=== PATIENT | female | born 1950 | race Caucasian/White ===

== ENCOUNTER 2016-12-02 15:53 | Emergency (ER) | payer MEDICARE, OTHER ==
[2016-12-02] MEDS ORDERED: SODIUM CHLORIDE 0.9% 500 ML IV STA (17:16)
--- NOTE | 2016-12-02 17:23 | ED ---
General Adult HPI - General Chief complaint: Arrhythmia/Palpitations Stated complaint: Paptations Time Seen by Provider: 12/02/16 16:53 Source: patient, RN notes reviewed Mode of arrival: wheelchair Limitations: no limitations - History of Present Illness Initial comments: 66 yo female presents to the ER with cc of shakiness that is since resolved. Patient states she was here for an infusion for her arthritis. Patient states she was been hungry so she went to the cafeteria. Patient states after she ate she felt some shakiness in her hands so she came to the emergency department. Patient states that they did an EKG and she sat all in the lobby and the shakiness has since resolved. Patient states while she was shaky just feels if her heart was pounding and beating faster patient states that this is since resolved. Patient states there is no pain or shortness of breath during this. Patient states she hasn't had any other symptoms. Patient states that she is back to normal and feels fine. Patient states that she was concerned due to the shakiness so she thought that she should be evaluated. Patient denies any recent fever, chills, shortness of breath, chest pain, back pain, abdominal pain , nausea vomiting, numbness or tingling, dysuria or hematuria, constipation or diarrhea, headaches or visual changes, or any other current symptoms. - Related Data Home Medications Medication Instructions Recorded Confirmed Bisoprolol Fumarate 10 mg PO DAILY 05/12/14 12/02/16 Chlorzoxazone [Parafon Forte Dsc] 1,000 mg PO TID PRN 05/12/14 12/02/16 Fenofibrate,Micronized 200 mg PO HS 05/12/14 12/02/16 [Fenofibrate] Gabapentin [Neurontin] 600 mg PO BID 05/12/14 12/02/16 Isosorbide Mononitrate ER [Imdur] 30 mg PO DAILY 05/12/14 12/02/16 Lansoprazole [Prevacid] 30 mg PO BID 05/12/14 12/02/16 Lovastatin [Mevacor] 20 mg PO HS 05/12/14 12/02/16 Montelukast [Singulair] 10 mg PO HS 05/12/14 12/02/16 Oxybutynin Chloride [Ditropan XL] 10 mg PO BID 05/12/14 12/02/16 Temazepam [Restoril] 30 mg PO HS PRN 05/12/14 12/02/16 Acetaminophen Tab [Tylenol] 500 mg PO Q6H PRN 02/23/16 12/02/16 Albuterol Inhaler [Ventolin Hfa 2 puff INHALATION RT-Q6H PRN 02/23/16 12/02/16 Inhaler] Albuterol Nebulized [Ventolin 2.5 mg INHALATION RT-Q6H PRN 02/23/16 12/02/16 Nebulized] Alendronate Sodium 70 mg PO EDMONDSON 02/23/16 12/02/16 Aspirin EC [Ecotrin] 325 mg PO DAILY 02/23/16 12/02/16 Clotrimazole/Betamethasone Dip 1 applic TOPICAL BID PRN 02/23/16 12/02/16 [Lotrisone Cream] FLUoxetine HCL [PROzac] 20 mg PO BID 02/23/16 12/02/16 Ferrous Sulfate [Iron (65 MG 325 mg PO BID 02/23/16 12/02/16 Elemental)] Folic Acid 1 mg PO DAILY 02/23/16 12/02/16 HYDROcodone/APAP 10-325MG [[place] 1 tab PO Q4H PRN 02/23/16 12/02/16 10-325] Ibuprofen [Motrin] 800 mg PO Q6H PRN 02/23/16 12/02/16 [place]-3 Fatty Acids [[place]-3] 1,000 mg PO DAILY 02/23/16 12/02/16 amLODIPine BESYLATE [Amlodipine 10 mg PO DAILY 02/23/16 12/02/16 Besylate] glipiZIDE [Glucotrol XL] 5 mg PO DAILY 02/23/16 12/02/16 traZODone HCL [Desyrel] 100 - 200 mg PO HS 02/23/16 12/02/16 DULoxetine HCL [Cymbalta] 60 mg PO DAILY 08/09/16 12/02/16 Fexofenadine HCl [Flores Allergy] 180 mg PO BID 08/09/16 12/02/16 Methotrexate Sodium [Methotrexate] 17.5 mg PO EDMONDSON 12/02/16 12/02/16 Allergies Allergy/AdvReac Type Severity Reaction Status Date / Time Penicillins Allergy Rash/Hives Verified 12/02/16 17:16 sulfamethoxazole Allergy Rash/Hives Verified 12/02/16 17:16 [From Bactrim] trimethoprim [From Bactrim] Allergy Rash/Hives Verified 12/02/16 17:16 Review of Systems ROS Statement: Those systems with pertinent positive or pertinent negative responses have been documented in the HPI. ROS Other: All systems not noted in ROS Statement are negative. Past Medical History Past Medical History: Asthma, Chest Pain / Angina, Fibromyalgia, Hyperlipidemia , Hypertension, Osteoarthritis (OA), Rheumatoid Arthritis (RA) Additional Past Medical History / Comment(s): LUPUS, History of Any Multi-Drug Resistant Organisms: None Reported Past Surgical History: Hysterectomy, Joint Replacement, Orthopedic Surgery Additional Past Surgical History / Comment(s): RIGHT FOOT, TOTAL RIGHT ANKLE, TOTAL RIGHT HIP AND TOTAL LEFT HIP Past Anesthesia/Blood Transfusion Reactions: No Reported Reaction Past Psychological History: Depression Smoking Status: Never smoker Past Alcohol Use History: Occasional Past Drug Use History: None Reported - Past Family History Mother Family Medical History: Cancer Additional Family Medical History / Comment(s): LUNG CANCER General Exam - General Exam Comments Initial Comments: General: The patient is awake and alert, in no distress, and does not appear acutely ill. Eye: Pupils are equal, round and reactive to light, extra-ocular movements are intact; there is normal conjunctiva bilaterally. No signs of icterus. Ears, nose, mouth and throat: There are moist mucous membranes and no oral lesions. Neck: The neck is supple, there is no tenderness. Cardiovascular: There is a regular rate and rhythm. No murmur, rub or gallop is appreciated. Respiratory: Lungs are clear to auscultation, respirations are non-labored, breath sounds are equal. No wheezes, stridor, rales, or rhonchi. Gastrointestinal: Soft, non-distended, non-tender abdomen without masses or organomegaly noted. There is no rebound or guarding present. No CVA tenderness. Bowel sounds are unremarkable. Back: There is no tenderness to palpation in the midline. There is no obvious deformity. No rashes noted. Musculoskeletal: Normal ROM, no tenderness, There is no pedal edema. There is no calf tenderness or swelling. Sensation intact. Pulses equal bilaterally 2+. Neurological: CN II-XII intact, There are no obvious motor or sensory deficits. Coordination appears grossly intact. Speech is normal. Skin: Skin is warm and dry and no rashes or lesions are noted. Psychiatric: Cooperative, appropriate mood & affect, normal judgment. Limitations: no limitations Course Vital Signs 12/02/16 12/02/16 15:55 18:39 Temperature 98.9 F 98.8 F Pulse Rate 67 64 Respiratory 20 18 Rate Blood Pressure 154/107 169/94 O2 Sat by Pulse 98 96 Oximetry Medical Decision Making - Medical Decision Making 66-year-old female presents emergency Department chief complaint of shakiness. Lab work was ordered on the patient EKG was reviewed initially acute changes compared to previous. Patient proceeded to leave AMA. She was informed of the risk of possible from this. We did discuss this with the patient and she stated that she understood. Patient states she still like to go home she is on the posterior margin she is back to normal has no complaints. This patient did sign out AMA. Disposition Clinical Impression: Shakiness Disposition: Left Against Medical Advice Condition: Undetermined Referrals: Elida Baltazar MD [Primary Care Provider] - 1-2 days
--- NOTE | 2016-12-02 18:34 | XR ---
EXAMINATION TYPE: XR chest 2V DATE OF EXAM: 12/02/2016 6:27 PM COMPARISON: 07/11/2014 HISTORY: Weakness TECHNIQUE: Frontal and lateral views of the chest are obtained. FINDINGS: Heart and mediastinum are normal. Lungs are clear of infiltrate. Costophrenic angles are c lear. There is spurring in the thoracic spine. IMPRESSION: No active cardiopulmonary disease. No change.
[2016-12-02 18:40] VITALS: BP 169/94; PULSE 64; RESP 18; TEMP 98.8
== END 2016-12-02 18:51 | disposition left against medical advice (07) ==
LOC: EC 15:53
DX: R25.1 Tremor, unspecified (principal); J45.909 Unspecified asthma, uncomplicated; E78.5 Hyperlipidemia, unspecified; I10 Essential (primary) hypertension; M79.7 Fibromyalgia; M19.90 Unspecified osteoarthritis, unspecified site; M06.9 Rheumatoid arthritis, unspecified; F32.9 Major depressive disorder, single episode, unspecified; Z86.79 Personal history of other diseases of the circulatory system; Z79.82 Long term (current) use of aspirin; Z79.899 Other long term (current) drug therapy; Z79.84 Long term (current) use of oral hypoglycemic drugs; Z88.0 Allergy status to penicillin; Z88.2 Allergy status to sulfonamides; Z53.21 Procedure and treatment not carried out due to patient leaving prior to being seen by health care provider
CPT/HCPCS: 71020; 93005; 96365; 99285

== ENCOUNTER 2017-04-25 06:39 | Day surgery (SDC) | payer MEDICARE, OTHER ==
[~2017-04-25 06:39] MED LIST: ALPRAZolam 0.25 MG TAB PO PRN; ASPIRIN 325 MG TAB PO ONE; NITROGLYCERIN SL TABS 0.4 MG TAB SUBLINGUAL PRN; SODIUM CHLORIDE 0.9% 1,000 ML in EMPTY BAG 1 BAG IV ONE
[2017-04-25] MEDS ORDERED: ASPIRIN 81 MG CHEW ONE (07:03)
[2017-04-25] MEDS ORDERED: SODIUM CHLORIDE 0.9% 1,000 ML IV ONE (07:14)
[2017-04-25 07:23] LABS: Anisocytosis Slight; Basophils # (A) 0.1 k/uL (0-0.2); Basophils % (A) 1 %; CH 28.7; CHCM 30.9; Eosinophils # (A) 0.5 k/uL (0-0.7); Eosinophils % (A) 9 %; HCT 40.3 % (34.0-46.0); HDW 2.79; HGB 12.6 gm/dL (11.4-16.0); Hypochromasia Moderate; Luc # (Auto) 0.17; Luc % (Auto) 3; Lymphocytes % (A) 41 %; MCHC 31.2 g/dL (31.0-37.0); MCV 93.2 fL (80.0-100.0); Mean Platelet Volume 8.1; Monocytes # (A) 0.3 k/uL (0-1.0); Monocytes % (A) 7 %; Neutrophils # (A) 1.9 k/uL (1.3-7.7); Neutrophils % (A) 39 %; RBC 4.33 m/uL (3.80-5.40); RDW 18.2 % (11.5-15.5); WBC (Perox) 5.19
[2017-04-25 07:29] LABS: Glucose,Whole Blood 103 mg/dL (75-99)
[2017-04-25] MEDS: LIDOCAINE 2% INJ 20 MG/ML SQ ONE ×2 (07:40→07:57)
[2017-04-25] MEDS ORDERED: MIDAZOLAM 2 MG/2 ML VIAL IV ONE (07:41)
[2017-04-25 07:42] LABS: Anion Gap 7 mmol/L; Blood Urea Nitrogen 19 mg/dL (7-17); Carbon Dioxide 25 mmol/L (22-30); Chloride 111 mmol/L (98-107); Glucose 99 mg/dL (74-99); Non-African American GFR(MDRD) >60 (>60 ml/min/1.73 sqM); Sodium 143 mmol/L (137-145)
[2017-04-25] MEDS ORDERED: VERAPAMIL SYRINGE (5 MG/10 ML) INTRAARTER ONE (07:42)
[2017-04-25 07:43] LABS: Potassium 4.7 mmol/L (3.5-5.1)
[2017-04-25] MEDS ORDERED: HEPARIN SODIUM 1,000 UNIT/ML VIAL IV ONE (07:43)
[2017-04-25] MEDS ORDERED: BIVALIRUDIN BOLUS 250 MG/50 ML IV ONE (08:16)
[2017-04-25] MEDS ORDERED: BIVALIRUDIN 250 MG in SODIUM CHLORIDE 0.9% 50 ML IV ONE (08:17)
[2017-04-25] MEDS ORDERED: CLOPIDOGREL 75 MG TAB PO ONE (08:25)
[2017-04-25] MEDS: NITROGLYCERIN 1000MCG/10ML SYRINGE INTRACORON ONE ×2 (08:40→08:45)
[2017-04-25] MEDS ORDERED: IOHEXOL 350 MG/ML 125ML BOTTLE INJ ONE (08:52)
[2017-04-25] MEDS ORDERED: CLOTRIMAZOLE/BETAMETH 1-0.05% CREAM 45 GM TUBE TOPICAL PRN (08:53)
[2017-04-25] MEDS ORDERED: TEMAZEPAM 30 MG CAP PO PRN (08:53)
[2017-04-25] MEDS ORDERED: ACETAMINOPHEN TAB 500 MG TAB PO PRN (08:53)
[2017-04-25] MEDS ORDERED: ALBUTEROL NEBULIZED 2.5 MG/3 ML INHALATION PRN ×2 (08:53)
[2017-04-25] MEDS ORDERED: NITROGLYCERIN SL TABS 0.4 MG TAB SUBLINGUAL PRN (08:55)
[2017-04-25] MEDS ORDERED: MAG HYDROX/AL HYDROX/SIMETH 30 ML CUP PO PRN (08:55)
[2017-04-25] MEDS ORDERED: RX INFO: IV CONTRAST WAS GIVEN 1 EACH MISC MISCELLANE PRN (08:55)
[2017-04-25] MEDS ORDERED: ATROPINE SULFATE 0.1 MG/ML 10ML SYRINGE IV PRN (08:55)
[2017-04-25] MEDS ORDERED: ZOLPIDEM 5 MG TAB PO PRN (08:55)
[2017-04-25] MEDS ORDERED: ADALIMUMAB 40 MG SQ SCH (09:00)
[2017-04-25] MEDS ORDERED: NON-FORMULARY DRUG (Omega-3 Fatty Acids [Omega-3] 1,000 MG) PO SCH (09:00)
[2017-04-25] MEDS ORDERED: SODIUM CHLORIDE 0.9% 1,000 ML IV SCH (09:00)
[2017-04-25] MEDS: ASPIRIN 81 MG CHEW PO SCH (11:47)
[2017-04-25] MEDS ORDERED: HYDROcodone/APAP 10-325MG 1 EACH TAB PO SCH (12:00)
[2017-04-25 12:09] VITALS: BMI 30.9
[2017-04-25 12:32] LABS: Glucose,Whole Blood 85 mg/dL (75-99)
[2017-04-25] MEDS: amLODIPine 10 MG TAB PO SCH (12:39)
[2017-04-25] MEDS: BISOPROLOL 5 MG TAB PO SCH (12:39)
[2017-04-25] MEDS: FLUoxetine HCL 20 MG CAP PO SCH ×2 (12:40→20:08)
[2017-04-25] MEDS: FERROUS SULFATE 325 MG TAB PO SCH ×2 (12:40→20:08)
[2017-04-25] MEDS: DULoxetine HCL 60 MG CAPSULE.DR PO SCH (12:40)
[2017-04-25] MEDS: FOLIC ACID 1 MG TAB PO SCH (12:40)
[2017-04-25] MEDS: GABAPENTIN 300 MG CAP PO SCH ×3 (12:41→20:09)
[2017-04-25] MEDS: ISOSORBIDE MONONITRATE ER 30 MG TAB.ER.24H PO SCH (12:43)
[2017-04-25] MEDS: LISINOPRIL 5 MG TAB PO SCH (12:43)
[2017-04-25] MEDS: OXYBUTYNIN 10 MG TAB.ER.24 PO SCH ×3 (12:43→20:08)
[2017-04-25] MEDS: LORATADINE 10 MG TAB PO SCH (12:43)
[2017-04-25] MEDS: PANTOPRAZOLE 40 MG TABLET PO SCH ×2 (13:03→17:04)
[2017-04-25] MEDS ORDERED: CYCLOBENZAPRINE 10 MG TAB PO PRN (16:00)
[2017-04-25 16:54] LABS: Glucose,Whole Blood 91 mg/dL (75-99)
[2017-04-25] MEDS: HYDROcodone/APAP 10-325MG 1 EACH TAB PO SCH ×3 (17:03→23:27)
[2017-04-25] MEDS ORDERED: MONTELUKAST 10 MG TAB PO SCH (21:00)
[2017-04-25] MEDS ORDERED: FENOFIBRATE 160 MG TAB PO SCH (21:00)
[2017-04-25] MEDS ORDERED: ATORVASTATIN 10 MG TAB PO SCH (21:00)
[2017-04-25 21:07] LABS: Glucose,Whole Blood 134 mg/dL (75-99)
--- NOTE | 2017-04-25 22:56 | CC ---
DATE OF SERVICE: 04/25/2017 PERFORMING PHYSICIAN: Bharath Castillo M.D., recycler. PROCEDURES PERFORMED: 1. Selective left coronary angiogram. 2. Successful stenting of the proximal left anterior descending artery using 2.75 x 26 mm Xience KEANU with good angiographic results. 3. Selective right common femoral artery angiogram. COMPLICATIONS: None. LEVEL OF SEDATION: Moderate, with sedation length of 88 minutes. PROCEDURE DESCRIPTION: After obtaining informed consent, the patient was brought to the cardiac labor delivery specialist. Initially I accessed the right radial artery using micropuncture technique. The micropuncture wire passed easily. Then I placed a 6 Cymro sheath in the right radial artery. Subsequently I gave the patient 2 mg of Verapamil IA and 3000 units of heparin IV. After that I advanced an 0.035 Glidewire to the aortic root with difficulty because of the extreme tortuosity in the right subclavian. At that point I decided to abort the radial approach and go from the groin. At that point I accessed the right common femoral artery using micropuncture technique. The micropuncture wire passed easily. Then I placed a 6 Cymro sheath in the right common femoral artery. Subsequently I did selective left coronary angiogram using JL4 catheter. I tried to engage the right coronary artery, but I was unable to, and then I realized that the right coronary artery has flush occlusion from the ostium and it fills by collaterals from the left coronary system. After reviewing the angiogram, I decided to intervene on the LAD. Please see separate paragraph for that. SELECTIVE CORONARY ANGIOGRAM: 1. The right coronary artery is probably occluded by the ostium. It fills by collaterals from the left coronary system. 2. The left main is a large-caliber vessel with mild disease only. It bifurcates into the left circumflex and left anterior descending artery. 3. Left circumflex is a large-caliber vessel and it is a non-dominant vessel. The proximal left circumflex appeared to be angiographically normal and gives rises to the first OM branch, which is a large-caliber vessel with 50% disease in the proximal portion. The mid left circumflex is angiographically normal and the left circumflex distally is normal. The left circumflex and the LAD give collaterals to the distal right coronary artery. 4. Left anterior descending artery. The proximal LAD is stented, with severe in-stent restenosis that appeared to be in the range of 80% to 90%. The LAD proximally gives rise to the first diagonal branch, which is a small-caliber vessel with severe disease in the ostium. The mid LAD has mild disease only and gives rise to 2 small to medium diagonal branches; they appear to be angiographically normal, and the LAD distally is angiographically normal. PCI OF THE LAD: Anticoagulation was initiated using Angiomax. Subsequently I took a JL4 guiding catheter, and the left main was engaged. A Whisper wire was used to wire the left anterior descending artery. I had some difficulty getting the wire to the LAD, and I had to put 2 ( ) on the Whisper wire to get to the LAD. After that I did PTCA ballooning using 2.5 x 20 mm balloon. After that I deployed 2.5 x 26, 2.75 x 20, ( ) x 28 mm Xience KEANU, where the stent was positioned under fluoroscopy guidance and deployed under 12 atmospheres for 30 seconds. The following angiogram showed good angiographic results without perforation and without dissection, with excellent flow in the LAD. CONCLUSION: 1. Chronic total occlusion of the right coronary artery; fills by collaterals from the left coronary system. The occlusion is likely to be flush occlusion. 2. Intermediate disease involving the first obtuse marginal branch of the left circumflex. 3. Severe in-stent restenosis involving the proximal LAD stent. 4. Successful stenting of the proximal LAD using 2.75 x 28 mm Xience KENAU, with good angiographic results.
[2017-04-26 01:18] VITALS: RESP 16
[2017-04-26] MEDS: HYDROcodone/APAP 10-325MG 1 EACH TAB PO SCH ×3 (05:08→12:28)
[2017-04-26 06:16] LABS: Glucose,Whole Blood 107 mg/dL (75-99)
[2017-04-26] MEDS: PANTOPRAZOLE 40 MG TABLET PO SCH (06:39)
[2017-04-26 06:43] LABS: Anisocytosis Slight; Basophils % (A) 1 %; CH 28.7; CHCM 30.8; Eosinophils # (A) 0.4 k/uL (0-0.7); Eosinophils % (A) 7 %; HCT 38.4 % (34.0-46.0); HDW 2.75; Hypochromasia Moderate; Luc # (Auto) 0.18; Luc % (Auto) 4; Lymphocytes % (A) 40 %; MCH 29.2 pg (25.0-35.0); MCHC 31.4 g/dL (31.0-37.0); MCV 93.2 fL (80.0-100.0); Monocytes # (A) 0.3 k/uL (0-1.0); Monocytes % (A) 7 %; Neutrophils # (A) 2.1 k/uL (1.3-7.7); Neutrophils % (A) 42 %; RBC 4.12 m/uL (3.80-5.40); RDW 18.3 % (11.5-15.5); WBC 4.9 k/uL (3.8-10.6)
[2017-04-26 07:07] LABS: Anion Gap 10 mmol/L; Blood Urea Nitrogen 11 mg/dL (7-17); Calcium 9.2 mg/dL (8.4-10.2); Carbon Dioxide 27 mmol/L (22-30); Chloride 106 mmol/L (98-107); Glucose 96 mg/dL (74-99); Non-African American GFR(MDRD) >60 (>60 ml/min/1.73 sqM); Potassium 4.5 mmol/L (3.5-5.1); Sodium 143 mmol/L (137-145)
[2017-04-26] MEDS: ISOSORBIDE MONONITRATE ER 30 MG TAB.ER.24H PO SCH (08:08)
[2017-04-26] MEDS: amLODIPine 10 MG TAB PO SCH (08:08)
[2017-04-26] MEDS: FLUoxetine HCL 20 MG CAP PO SCH (08:08)
[2017-04-26] MEDS: LISINOPRIL 5 MG TAB PO SCH (08:08)
[2017-04-26] MEDS: OXYBUTYNIN 10 MG TAB.ER.24 PO SCH (08:08)
[2017-04-26] MEDS: ASPIRIN 81 MG CHEW PO SCH (08:08)
[2017-04-26] MEDS: DULoxetine HCL 60 MG CAPSULE.DR PO SCH (08:09)
[2017-04-26] MEDS: LORATADINE 10 MG TAB PO SCH (08:09)
[2017-04-26] MEDS: FERROUS SULFATE 325 MG TAB PO SCH (08:09)
[2017-04-26] MEDS: GABAPENTIN 300 MG CAP PO SCH (08:10)
[2017-04-26] MEDS: FOLIC ACID 1 MG TAB PO SCH (08:10)
[2017-04-26] MEDS: BISOPROLOL 5 MG TAB PO SCH (08:13)
[2017-04-26] MEDS ORDERED: CLOPIDOGREL 75 MG TAB PO SCH (09:00)
[2017-04-26 11:25] VITALS: BP 119/71; PULSE 55; TEMP 97.6
[2017-04-26 11:33] LABS: Glucose,Whole Blood 60 mg/dL (75-99)
[2017-04-26 11:48] LABS: Glucose,Whole Blood 58 mg/dL (75-99)
[2017-04-26 12:02] LABS: Glucose,Whole Blood 71 mg/dL (75-99)
[2017-04-26 13:04] LABS: Glucose,Whole Blood 94 mg/dL (75-99)
--- NOTE | 2017-04-27 12:26 | DS ---
DATE OF ADMISSION: 04/25/2017 DATE OF DISCHARGE: 04/26/2017 BRIEF HISTORY: This is a pleasant 67-year-old female patient who is known to have coronary artery disease and prior stenting of the LAD was experiencing intermittent episodes of chest discomfort concerning for angina. She was admitted to the hospital yesterday and underwent a heart catheterization and that showed severe in-stent restenosis involving the proximal LAD. She underwent successful stenting of the proximal LAD with good angiographic results and without any complication. The procedure was performed from the right groin, which is soft and nontender and without any bruises. Patient is going to be discharged home on dual antiplatelet therapy and I will follow up with the patient as an outpatient in the office.
[2017-04-30] MEDS ORDERED: NON-FORMULARY DRUG (Alendronate Sodium [Alendronate Sodium] 70 MG) PO SCH (08:53)
[2017-04-30] MEDS ORDERED: METHOTREXATE SODIUM 2.5 MG TAB PO SCH (09:00)
== END 2017-04-26 15:01 | disposition home or self-care (01) ==
LOC: CATHCVL 06:39 → 6SEL 08:50 → CATHCVL 04-26 15:01
PROVIDERS: ATTEND Internal Medicine Interventional Cardiology
DX: I25.110 Atherosclerotic heart disease of native coronary artery with unstable angina pectoris (principal); I25.82 Chronic total occlusion of coronary artery; I10 Essential (primary) hypertension; T82.855A Stenosis of coronary artery stent, initial encounter; E11.9 Type 2 diabetes mellitus without complications; Z82.49 Family history of ischemic heart disease and other diseases of the circulatory system; Z79.84 Long term (current) use of oral hypoglycemic drugs; Z79.82 Long term (current) use of aspirin; Z79.1 Long term (current) use of non-steroidal anti-inflammatories (NSAID); Z79.899 Other long term (current) drug therapy; Z88.2 Allergy status to sulfonamides
CPT/HCPCS: 99152; 99153 ×4; 94640; 93454; 80048 ×2; 85025 ×2; C9600; C1760; C1769 ×4; C1887; C1894 ×2; C1725; C1874; J2001; J2250; J1644; J0583; Q9967

== ENCOUNTER 2017-05-14 00:59 | Emergency (ER) | payer MEDICARE, OTHER ==
[2017-05-14 01:17] VITALS: PULSE 60; RESP 18
[2017-05-14] MEDS ORDERED: HYDROcodone/APAP 10-325MG 1 EACH TAB PO ONE (01:48)
--- NOTE | 2017-05-14 02:00 | ED ---
Fall HPI - General Chief Complaint: Fall Stated Complaint: Fall-Knee Injury Time Seen by Provider: 05/14/17 01:30 Source: patient, RN notes reviewed Mode of arrival: wheelchair Limitations: no limitations - History of Present Illness Initial Comments: 67-year-old female presents emergency Department chief complaint trip and fall. Patient states that she [place] horse [place] today states that she fell on the ground. She states that she primarily fell onto her knees. She did drop her back. Patient denies any bowel bladder incontinence or retention. Denies any head injury no LOC. Patient also went of right elbow pain. Patient states she's had prior injury to her right elbow and he has limited range of motion prior to her injury. Patient has no paresthesias of any of her extremities. Patient states primarily her right knee is worse which is very swollen and ecchymotic. - Related Data Home Medications Medication Instructions Recorded Confirmed Bisoprolol Fumarate 10 mg PO DAILY 05/12/14 05/14/17 Chlorzoxazone [Parafon Forte Dsc] 1,000 mg PO TID PRN 05/12/14 05/14/17 Fenofibrate,Micronized 200 mg PO HS 05/12/14 05/14/17 [Fenofibrate] Gabapentin [Neurontin] 600 mg PO TID 05/12/14 05/14/17 Isosorbide Mononitrate ER [Imdur] 30 mg PO DAILY 05/12/14 05/14/17 Lansoprazole [Prevacid] 30 mg PO BID 05/12/14 05/14/17 Lovastatin [Mevacor] 20 mg PO HS 05/12/14 05/14/17 Montelukast [Singulair] 10 mg PO HS 05/12/14 05/14/17 Oxybutynin Chloride [Ditropan XL] 10 mg PO TID 05/12/14 05/14/17 Temazepam [Restoril] 30 mg PO HS PRN 05/12/14 05/14/17 Acetaminophen Tab [Tylenol] 500 mg PO Q6H PRN 02/23/16 05/14/17 Albuterol Inhaler [Ventolin Hfa 2 puff INHALATION RT-Q6H PRN 02/23/16 05/14/17 Inhaler] Albuterol Nebulized [Ventolin 2.5 mg INHALATION RT-Q6H PRN 02/23/16 05/14/17 Nebulized] Alendronate Sodium 70 mg PO EDMONDSON 02/23/16 05/14/17 Clotrimazole/Betamethasone Dip 1 applic TOPICAL BID PRN 02/23/16 05/14/17 [Lotrisone Cream] FLUoxetine HCL [PROzac] 20 mg PO BID 02/23/16 05/14/17 Ferrous Sulfate [Iron (65 MG 325 mg PO BID 02/23/16 05/14/17 Elemental)] Folic Acid 1 mg PO DAILY 02/23/16 05/14/17 HYDROcodone/APAP 10-325MG [[place] 1 tab PO Q4-6H 02/23/16 05/14/17 10-325] Ibuprofen [Motrin] 800 mg PO Q6H PRN 02/23/16 05/14/17 [place]-3 Fatty Acids [[place]-3] 1,000 mg PO DAILY 02/23/16 05/14/17 amLODIPine BESYLATE [Amlodipine 10 mg PO DAILY 02/23/16 05/14/17 Besylate] glipiZIDE [Glucotrol XL] 5 mg PO DAILY 02/23/16 05/14/17 traZODone HCL [Desyrel] 100 - 200 mg PO HS 02/23/16 05/14/17 DULoxetine HCL [Cymbalta] 60 mg PO DAILY 08/09/16 05/14/17 Fexofenadine HCl [Flores Allergy] 180 mg PO BID 08/09/16 05/14/17 Methotrexate Sodium [Methotrexate] 17.5 mg PO EDMONDSON 12/02/16 05/14/17 Adalimumab [Humira Pediatric 40 mg SQ Q14D 04/21/17 05/14/17 Crohn's] Aspirin [Children's Aspirin] 81 mg PO DAILY 04/21/17 05/14/17 Lisinopril [Zestril] 5 mg PO DAILY 04/21/17 05/14/17 Previous Rx's Medication Instructions Recorded Clopidogrel [Plavix] 75 mg PO DAILY #90 tab 04/26/17 Allergies Allergy/AdvReac Type Severity Reaction Status Date / Time Penicillins Allergy Rash/Hives Verified 05/14/17 01:17 sulfamethoxazole Allergy Rash/Hives Verified 05/14/17 01:17 [From Bactrim] trimethoprim [From Bactrim] Allergy Rash/Hives Verified 05/14/17 01:17 Review of Systems ROS Statement: Those systems with pertinent positive or pertinent negative responses have been documented in the HPI. ROS Other: All systems not noted in ROS Statement are negative. Past Medical History Past Medical History: Asthma, Coronary Artery Disease (CAD), Chest Pain / Angina , CVA/TIA, Diabetes Mellitus, Fibromyalgia, Hyperlipidemia, Hypertension, Osteoarthritis (OA), Rheumatoid Arthritis (RA) Additional Past Medical History / Comment(s): LUPUS, STATES WAS TOLD HAD " SILENT CVA" History of Any Multi-Drug Resistant Organisms: None Reported Past Surgical History: Heart Catheterization With Stent, Hysterectomy, Joint Replacement, Orthopedic Surgery Additional Past Surgical History / Comment(s): RIGHT FOOT, TOTAL RIGHT ANKLE, KETAN HIP REPLACEMENT Past Anesthesia/Blood Transfusion Reactions: No Reported Reaction Date of Last Stent Placement:: UNSURE Past Psychological History: Depression Smoking Status: Never smoker - Past Family History Mother Family Medical History: Cancer Additional Family Medical History / Comment(s): LUNG CANCER General Exam Limitations: no limitations General appearance: alert, in no apparent distress Head exam: Present: atraumatic, normocephalic, normal inspection Neck exam: Present: normal inspection, full ROM. Absent: tenderness Respiratory exam: Present: normal lung sounds bilaterally. Absent: respiratory distress, wheezes, rales, rhonchi, stridor Cardiovascular Exam: Present: regular rate, normal rhythm, normal heart sounds. Absent: systolic murmur, diastolic murmur, rubs, gallop, clicks Extremities exam: Present: other (Right knee there is moderate severe swelling noted and ecchymosis. Patient has pain with range of motion slightly limited range of motion. Pedal pulses equal bilaterally. There is mild medial knee tenderness on the left, no ankle tenderness there is no hip tenderness. Patient has decreased range of motion right elbow though this is chronic per patient. Patient is mild tenderness no ecchymosis no swelling neurovascular intact) Course Vital Signs 05/14/17 01:05 Temperature 98.4 F Pulse Rate 60 Respiratory 18 Rate Blood Pressure 121/62 O2 Sat by Pulse 92 L Oximetry Medical Decision Making - Medical Decision Making 67-year-old female presented for fall. Patient has a manic knee effusion on the right is without ecchymosis. Patient's also has increased back pain, right elbow pain due to her chronic issues. There is no acute fracture noted. Patient will follow-up with orthopedic doctor. Return parameters were discussed Disposition Clinical Impression: Fall, Effusion of right knee joint, Back pain, Elbow contusion Disposition: HOME SELF-CARE Condition: Stable Instructions: Swollen Knee Joint (ED) Additional Instructions: Please return to the Emergency Department if symptoms worsen or any other concerns. Referrals: Elida Baltazar MD [Primary Care Provider] - 1-2 days Time of Disposition: 03:35
--- NOTE | 2017-05-14 03:25 | XR ---
EXAM: XR Left Knee, 3 views XR Right Knee, 3 views CLINICAL HISTORY: Reason: Pain TECHNIQUE: Three views of the bilateral knees. COMPARISON: Right knee examination from 06/26/16 FINDINGS/IMPRESSION: RIGHT KNEE: Soft tissue injury with soft tissue swelling which appears to have a anteromedial predominance. No acute fracture or dislocation. Arthritic changes. Possible small joint effusion. LEFT KNEE: No acute fracture or dislocation. Arthritic changes. Possible trace joint effusion.
--- NOTE | 2017-05-14 03:30 | XR ---
EXAM: XR L Spine CLINICAL HISTORY: Reason: Pain TECHNIQUE: X-ray l spine. COMPARISON: 06/26/16 FINDINGS/IMPRESSION: No acute fracture or subluxation of the lumbar spine is identified. Spinal curvature. Degenerative changes. Cholecystectomy clips. Vascular calcifications.
[2017-05-14 03:41] VITALS: BP 143/70; TEMP 97.2
--- NOTE | 2017-05-14 03:59 | XR ---
EXAM: XR Right Elbow Complete, 3 or More Views CLINICAL HISTORY: Reason: Pain TECHNIQUE: Frontal, lateral and oblique views of the right elbow. COMPARISON: 06/26/16 FINDINGS/IMPRESSION: No acute fracture dislocation is identified. Arthritic changes along with possible remote traumatic changes again noted.
== END 2017-05-14 03:41 | disposition home or self-care (01) ==
LOC: EC 00:59
DX: S50.01XA Contusion of right elbow, initial encounter (principal); M25.461 Effusion, right knee; M54.5 Low back pain; S80.01XA Contusion of right knee, initial encounter; I25.10 Atherosclerotic heart disease of native coronary artery without angina pectoris; E11.9 Type 2 diabetes mellitus without complications; M79.7 Fibromyalgia; I10 Essential (primary) hypertension; M19.90 Unspecified osteoarthritis, unspecified site; M06.9 Rheumatoid arthritis, unspecified; F32.9 Major depressive disorder, single episode, unspecified; E78.5 Hyperlipidemia, unspecified; J45.909 Unspecified asthma, uncomplicated; Z79.82 Long term (current) use of aspirin; Z79.84 Long term (current) use of oral hypoglycemic drugs; Z79.899 Other long term (current) drug therapy; Z88.0 Allergy status to penicillin; Z88.2 Allergy status to sulfonamides; W01.0XXA Fall on same level from slipping, tripping and stumbling without subsequent striking against object, initial encounter; Y93.K9 Activity, other involving animal care; Y92.71 Barn as the place of occurrence of the external cause
CPT/HCPCS: 72100; 99283

== ENCOUNTER 2017-06-23 17:44 | Emergency (ER) | payer MEDICARE, OTHER ==
[2017-06-23] MEDS ORDERED: KETOROLAC 30 MG/ML 1 ML VIAL IVP STA (18:26)
--- NOTE | 2017-06-23 18:32 | ED ---
Abdominal Pain HPI - General Source: patient, RN notes reviewed, old records reviewed Mode of arrival: ambulatory Limitations: no limitations <Shreya Rock - Last Filed: 06/23/17 20:21> <Guerrero Duenas - Last Filed: 06/23/17 21:53> - General Chief Complaint: Abdominal Pain Stated Complaint: RT SIDE ABDOMINAL PAIN Time Seen by Provider: 06/23/17 17:59 - History of Present Illness Initial Comments: This is a 59-year-old female presenting to the emergency Department chief complaint of abdominal pain in the left upper quadrant and right upper quadrant. Patient reports it's been consistent for the past 45 days. She reports that she was kicked in the abdomen by her horse at that time. She seen in the emergency department and discharged with pain medication. Patient reports that since then she has occasional pain that is worse with certain movements. She denies any vomiting, diarrhea or any urinary symptoms. Patient reports that her pain will occasionally radiate towards her back. She has a history of cholecystectomy, but denies any other surgical history. Past medical history includes fibromyalgia, degenerative disc disease, chronic back pain. (Shreya Rock) - Related Data Home Medications Medication Instructions Recorded Confirmed Bisoprolol Fumarate [Zebeta] 10 mg PO DAILY 05/12/14 06/23/17 Chlorzoxazone [Parafon Forte Dsc] 1,000 mg PO TID PRN 05/12/14 06/23/17 Fenofibrate,Micronized 200 mg PO HS 05/12/14 06/23/17 [Fenofibrate] Gabapentin [Neurontin] 600 mg PO TID 05/12/14 06/23/17 Isosorbide Mononitrate ER [Imdur] 30 mg PO DAILY 05/12/14 06/23/17 Lansoprazole [Prevacid] 30 mg PO BID 05/12/14 06/23/17 Lovastatin [Mevacor] 20 mg PO HS 05/12/14 06/23/17 Montelukast [Singulair] 10 mg PO HS 05/12/14 06/23/17 Oxybutynin Chloride [Ditropan XL] 10 mg PO BID 05/12/14 06/23/17 Temazepam [Restoril] 30 mg PO HS PRN 05/12/14 06/23/17 Albuterol Nebulized [Ventolin 2.5 mg INHALATION RT-QID PRN 02/23/16 06/23/17 Nebulized] Alendronate Sodium 70 mg PO [place] 02/23/16 06/23/17 FLUoxetine HCL [PROzac] 20 mg PO BID 02/23/16 06/23/17 Folic Acid 1 mg PO DAILY 02/23/16 06/23/17 HYDROcodone/APAP 10-325MG [[place] 1 tab PO QID 02/23/16 06/23/17 10-325] Ibuprofen [Motrin] 800 mg PO Q6H 02/23/16 06/23/17 amLODIPine BESYLATE [Amlodipine 10 mg PO DAILY 02/23/16 06/23/17 Besylate] glipiZIDE [Glucotrol XL] 5 mg PO DAILY 02/23/16 06/23/17 traZODone HCL [Desyrel] 100 mg PO HS 02/23/16 06/23/17 DULoxetine HCL [Cymbalta] 60 mg PO DAILY 08/09/16 06/23/17 Fexofenadine HCl [Flores Allergy] 180 mg PO BID 08/09/16 06/23/17 Methotrexate Sodium [Methotrexate] 17.5 mg PO [place] 12/02/16 06/23/17 Lisinopril [Zestril] 5 mg PO DAILY 04/21/17 06/23/17 Adalimumab [Humira Pen] 40 mg SQ Q14D 06/23/17 06/23/17 Amoxicillin/Potassium Clav 1 tab PO BID 06/23/17 06/23/17 [Augmentin 875-125 Tablet] Azelastine HCl [Astepro] 2 spray EA NOSTRIL BID PRN 06/23/17 06/23/17 Chlorthalidone [Hygroton] 25 mg PO DAILY 06/23/17 06/23/17 Diazepam [Valium] 10 mg PO Q8H PRN 06/23/17 06/23/17 Ergocalciferol [Vitamin D2] 50,000 unit PO [place] 06/23/17 06/23/17 valACYclovir HCL [Valtrex] 1,000 mg PO BID PRN 06/23/17 06/23/17 Previous Rx's Medication Instructions Recorded Clopidogrel [Plavix] 75 mg PO DAILY #90 tab 04/26/17 Cyclobenzaprine [Flexeril] 10 mg PO TID #15 tab 06/23/17 Allergies Allergy/AdvReac Type Severity Reaction Status Date / Time Penicillins Allergy Rash/Hives Verified 06/23/17 17:54 sulfamethoxazole Allergy Rash/Hives Verified 06/23/17 17:54 [From Bactrim] trimethoprim [From Bactrim] Allergy Rash/Hives Verified 06/23/17 17:54 Review of Systems ROS Other: All systems not noted in ROS Statement are negative. <Shreya Rock - Last Filed: 06/23/17 20:21> ROS Other: All systems not noted in ROS Statement are negative. <Guerrero Duenas - Last Filed: 06/23/17 21:53> ROS Statement: Those systems with pertinent positive or pertinent negative responses have been documented in the HPI. Past Medical History Past Medical History: Asthma, Coronary Artery Disease (CAD), Chest Pain / Angina , CVA/TIA, Diabetes Mellitus, Fibromyalgia, Hyperlipidemia, Hypertension, Osteoarthritis (OA), Rheumatoid Arthritis (RA) Additional Past Medical History / Comment(s): LUPUS, STATES WAS TOLD HAD " SILENT CVA" History of Any Multi-Drug Resistant Organisms: None Reported Past Surgical History: Heart Catheterization With Stent, Hysterectomy, Joint Replacement, Orthopedic Surgery Additional Past Surgical History / Comment(s): RIGHT FOOT, TOTAL RIGHT ANKLE, KETAN HIP REPLACEMENT Past Anesthesia/Blood Transfusion Reactions: No Reported Reaction Date of Last Stent Placement:: UNSURE Past Psychological History: Depression Smoking Status: Never smoker Past Alcohol Use History: None Reported Past Drug Use History: None Reported - Past Family History Mother Family Medical History: Cancer Additional Family Medical History / Comment(s): LUNG CANCER <Shreya Rock - Last Filed: 06/23/17 20:21> General Exam Limitations: no limitations General appearance: alert, in no apparent distress Head exam: Present: atraumatic, normocephalic, normal inspection Eye exam: Present: normal appearance, PERRL, EOMI. Absent: scleral icterus, conjunctival injection, periorbital swelling ENT exam: Present: normal exam, mucous membranes moist Neck exam: Present: normal inspection. Absent: tenderness, meningismus, lymphadenopathy Respiratory exam: Present: normal lung sounds bilaterally. Absent: respiratory distress, wheezes, rales, rhonchi, stridor Cardiovascular Exam: Present: regular rate, normal rhythm, normal heart sounds. Absent: systolic murmur, diastolic murmur, rubs, gallop, clicks GI/Abdominal exam: Present: soft, tenderness (Right upper quadrant and left upper quadrant tenderness. Patient's pain is worse with movement.), normal bowel sounds. Absent: distended, guarding, rebound, rigid Extremities exam: Present: normal inspection, full ROM, normal capillary refill. Absent: tenderness, pedal edema, joint swelling, calf tenderness Back exam: Present: normal inspection Neurological exam: Present: alert, oriented X3, CN II-XII intact Psychiatric exam: Present: normal affect, normal mood Skin exam: Present: warm, dry, intact, normal color. Absent: rash <Shreya Rock - Last Filed: 06/23/17 20:21> <Guerrero Duenas - Last Filed: 06/23/17 21:53> - General Exam Comments Initial Comments: This is a pleasant 67-year-old female. No acute distress. (Shreya Rock) Medical Decision Making - Lab Data Result diagrams: 06/23/17 19:10 06/23/17 19:10 - Radiology Data Radiology results: report reviewed <Shreya Rock - Last Filed: 06/23/17 20:21> - Lab Data Result diagrams: 06/23/17 19:10 06/23/17 19:10 <Guerrero Duenas - Last Filed: 06/23/17 21:53> - Medical Decision Making 59-year-old [employer] chief complaint of abdominal pain for the past 45 days after she was kicked by a horse. Patient labwork was reviewed and negative for any abnormalities. KUB is negative. Patient was given Toradol and morphine for pain. Patient's pain is worse with certain movements. It does appear to be muscle skeletal. I discussed case with Dr. Duenas, he is concerned of possible splenic injury, and CT abdomen and pelvis ordered. Patient informed of the results, and case transferred to Dr. Duenas at 8:30 pm. (Shreya Rock) Medical decision-making. The patient's labs are reviewed. Vital signs are stable. Patient had a CAT scan of the abdomen with IV and oral contrast. The radiologist's final impression is athetoid vascular disease. Melodic changes in the lumbar spine. No sign of acute abdomen or pelvis. Mild constipation. Fatty infiltration of the liver. No significant change compared to old exam. No rib fractures seen. No evidence of traumatic injury. As read by Dr. Dooley Emanation of the abdomen showed no rebound or referred pain. The discomfort she has on-again off-again. We discussed diverticulitis and is no sign or evidence of that now but she has been eating nuts. Patient was told to follow- up with family physician[facility] - Lab Data Lab Results 06/23/17 06/23/17 06/23/17 Range/Units 19:10 19:10 19:10 WBC 6.7 (3.8-10.6) k/uL RBC 4.28 (3.80-5.40) m/uL Hgb 13.6 (11.4-16.0) gm/dL Hct 42.2 (34.0-46.0) % MCV 98.7 D (80.0-100.0) fL MCH 31.9 (25.0-35.0) pg MCHC 32.3 (31.0-37.0) g/dL RDW 19.5 H (11.5-15.5) % Plt Count 215 (150-450) k/uL Neutrophils % 54 % Lymphocytes % 29 % Monocytes % 6 % Eosinophils % 8 % Basophils % 1 % Neutrophils # 3.6 (1.3-7.7) k/uL Lymphocytes # 1.9 (1.0-4.8) k/uL Monocytes # 0.4 (0-1.0) k/uL Eosinophils # 0.5 (0-0.7) k/uL Basophils # 0.0 (0-0.2) k/uL Anisocytosis Slight Macrocytosis Slight Sodium 145 (137-145) mmol/L Potassium 4.2 (3.5-5.1) mmol/L Chloride 110 H (98-107) mmol/L Carbon Dioxide 25 (22-30) mmol/L Anion Gap 10 mmol/L BUN 14 (7-17) mg/dL Creatinine 0.82 (0.52-1.04) mg/dL Est GFR (MDRD) Af Amer >60 (>60 ml/min/1.73 sqM) Est GFR (MDRD) Non-Af >60 (>60 ml/min/1.73 sqM) Glucose 58 L (74-99) mg/dL Calcium 9.1 (8.4-10.2) mg/dL Total Bilirubin 0.4 (0.2-1.3) mg/dL AST 51 H (14-36) U/L ALT 73 H (9-52) U/L Alkaline Phosphatase 78 (38-126) U/L Total Protein 7.0 (6.3-8.2) g/dL Albumin 4.2 (3.5-5.0) g/dL Lipase 66 (23-300) U/L Urine Color Yellow Urine Appearance Clear (Clear) Urine pH 6.0 (5.0-8.0) Ur Specific [place] 1.027 (1.001-1.035) Urine Protein Trace H (Negative) Urine Glucose (UA) Negative (Negative) Urine Ketones Negative (Negative) Urine Blood Negative (Negative) Urine Nitrite Negative (Negative) Urine Bilirubin Negative (Negative) Urine Urobilinogen 2.0 (<2.0) mg/dL Ur Leukocyte Esterase Negative (Negative) - Radiology Data KUB is negative for any acute process. (Shreya Rock) Disposition Time of Disposition: 20:10 <Shreya Rock - Last Filed: 06/23/17 20:21> Time of Disposition: 21:53 <Guerrero Duenas - Last Filed: 06/23/17 21:53> Clinical Impression: Abdominal muscle pain Disposition: HOME SELF-CARE Condition: Good Additional Instructions: Patient advised to take your at-home anxiety and pain medication. Patient can take the medicines as prescribed. Clinic follow-up with her primary care physician. Return to the emergency department if any alarming signs or symptoms occur. Prescriptions: Cyclobenzaprine [Flexeril] 10 mg PO TID #15 tab Referrals: Elida Baltazar MD [Primary Care Provider] - 1-2 days
[2017-06-23 19:23] LABS: Anisocytosis Slight; Basophils % (A) 1 %; CH 32.1; CHCM 32.6; Eosinophils # (A) 0.5 k/uL (0-0.7); Eosinophils % (A) 8 %; HCT 42.2 % (34.0-46.0); HGB 13.6 gm/dL (11.4-16.0); Luc # (Auto) 0.17; Luc % (Auto) 3; Lymphocytes # (A) 1.9 k/uL (1.0-4.8); Lymphocytes % (A) 29 %; MCH 31.9 pg (25.0-35.0); MCHC 32.3 g/dL (31.0-37.0); Macrocytosis Slight; Mean Platelet Volume 8.5; Monocytes # (A) 0.4 k/uL (0-1.0); Monocytes % (A) 6 %; Neutrophils # (A) 3.6 k/uL (1.3-7.7); Neutrophils % (A) 54 %; RBC 4.28 m/uL (3.80-5.40); RDW 19.5 % (11.5-15.5); WBC 6.7 k/uL (3.8-10.6); WBC (Perox) 6.72
[2017-06-23 19:27] LABS: Appearance,Urine Clear (Clear); Bilirubin,Urine Negative (Negative); Glucose,Urine (UA) Negative (Negative); Ketones,Urine Negative (Negative); Leukocyte Esterase,Urine Negative (Negative); MCV 98.7 fL (80.0-100.0); Nitrite,Urine Negative (Negative); Protein,Urine Trace (Negative); Specific Gravity,Urine 1.027 (1.001-1.035); UA Billing (MACRO vs. MICRO) CHEM
[2017-06-23 19:32] LABS: ALT 73 U/L (9-52); AST 51 U/L (14-36); Alkaline Phosphatase 78 U/L (38-126); Anion Gap 10 mmol/L; Blood Urea Nitrogen 14 mg/dL (7-17); Calcium 9.1 mg/dL (8.4-10.2); Carbon Dioxide 25 mmol/L (22-30); Chloride 110 mmol/L (98-107); Glucose 58 mg/dL (74-99); Non-African American GFR(MDRD) >60 (>60 ml/min/1.73 sqM); Potassium 4.2 mmol/L (3.5-5.1); Sodium 145 mmol/L (137-145); Total Bilirubin 0.4 mg/dL (0.2-1.3)
[2017-06-23 19:45] VITALS: PULSE 60; RESP 16
--- NOTE | 2017-06-23 20:03 | XR ---
EXAMINATION TYPE: XR KUB DATE OF EXAM: 06/23/2017 COMPARISON: 04/02/2016 HISTORY: Abdominal pain TECHNIQUE: 2 views FINDINGS: There is no sign of intestinal obstruction or pneumoperitoneum. Fecal pattern is normal. Th ere is no sign of a mass. There are clips from cholecystectomy. There is mild lumbar dextroscoliosis. Fecal pattern is normal. There are no pathologic calcifications over the kidneys. IMPRESSION: Nonacute abdomen. No adverse change compared to old exam.
[2017-06-23] MEDS ORDERED: RX INFO: IV CONTRAST WAS GIVEN 1 EACH MISC MISCELLANE PRN (20:16)
[2017-06-23] MEDS ORDERED: MORPHINE SULFATE 4 MG/ML SYRINGE IVP STA (20:20)
[2017-06-23] MEDS ORDERED: SODIUM CHLORIDE 0.9% 1,000 ML IV ONE (20:20)
--- NOTE | 2017-06-23 21:22 | CT ---
EXAMINATION TYPE: CT abdomen pelvis w con DATE OF EXAM: 06/23/2017 COMPARISON: 04/02/2016 HISTORY: Left upper quadrant trauma [address] DLP: mGycm Automated exposure control for dose reduction was used. TECHNIQUE: Helical acquisition of images was performed from the lung bases through the pelvis. CONTRAST: omni 100ml FINDINGS: Lung bases are clear of consolidation. There are mild fibrotic changes at the lung bases. There is no pleural effusion. There is some mild fatty infiltration of the liver. There are clips from cholecystectomy. Spleen panc reas and liver appear normal. Bile ducts are not dilated. There is no adrenal mass. Kidneys have normal size and contour. There is no hydronephrosis. There is no retroperitoneal adenopa thy. There is no ascites. There is no sign of appendicitis. Appendix appears normal. There is mild re tained fecal material in the right colon. There is no sign of a pelvic mass. Exam is limited by metal artifact from the hip prostheses. There is no sign of free fluid in the pelvis. There is multilevel spondylosis in the lumbar spine. IMPRESSION: ATHETOID VASCULAR DISEASE. SPONDYLOTIC CHANGES IN THE LUMBAR SPINE. NO SIGN OF ACUTE ABDOMEN AND PELV IS. MILD CONSTIPATION. FATTY INFILTRATION OF THE LIVER. NO SIGNIFICANT CHANGE COMPARED TO OLD EXAM. N O RIB FRACTURE SEEN. NO EVIDENCE OF TRAUMATIC INJURY.
[2017-06-23 22:04] VITALS: BP 150/85; TEMP 98.9
== END 2017-06-23 22:02 | disposition home or self-care (01) ==
LOC: EC 17:44
DX: R10.12 Left upper quadrant pain (principal); R10.11 Right upper quadrant pain; J45.909 Unspecified asthma, uncomplicated; I25.10 Atherosclerotic heart disease of native coronary artery without angina pectoris; E11.9 Type 2 diabetes mellitus without complications; M79.7 Fibromyalgia; E78.5 Hyperlipidemia, unspecified; I10 Essential (primary) hypertension; M19.90 Unspecified osteoarthritis, unspecified site; M06.9 Rheumatoid arthritis, unspecified; F32.9 Major depressive disorder, single episode, unspecified; Z79.1 Long term (current) use of non-steroidal anti-inflammatories (NSAID); Z79.899 Other long term (current) drug therapy; Z79.891 Long term (current) use of opiate analgesic; Z88.0 Allergy status to penicillin; Z88.2 Allergy status to sulfonamides
CPT/HCPCS: 36415; 80053; 83690; 85025; 81003; 74000; 74177; 99285; 96374; 96375; J2270; J1885; Q9967

== ENCOUNTER 2017-09-30 19:05 | Emergency (ER) | payer MEDICARE, OTHER ==
[2017-09-30] MEDS ORDERED: MORPHINE SULFATE 2 MG/ML SYRINGE IVP ONE (20:05)
[2017-09-30] MEDS ORDERED: SODIUM CHLORIDE 0.9% 1,000 ML IV SCH (20:15)
--- NOTE | 2017-09-30 20:15 | ED ---
Head Injury HPI - General Chief complaint: Head Injury Stated complaint: fall, head/neck injury, dizziness, nausea Time Seen by Provider: 09/30/17 19:24 Source: patient, family, RN notes reviewed, old records reviewed Mode of arrival: wheelchair Limitations: no limitations - History of Present Illness Initial comments: 67-year-old female presents emergency Department one week status post fall and head injury. Patient ports that she is on Plavix. Patient reports that she's been complaining of neck pain and headache since then. She reports she's felt nauseated. She had loss of consciousness when she did have the fall. She also complains of some minor abdominal pain. She did eat a cheeseburger prior to arriving to emergency department. Denies any vomiting episodes or diarrhea. She states that she has been having abdominal pain for the past 2 days. She reports that her headache and neck pain is more severe. She denies any fever or chills. Denies any chest pain or shortness of breath. - Related Data Home Medications Medication Instructions Recorded Confirmed Bisoprolol Fumarate [Zebeta] 10 mg PO QA 05/12/14 09/30/17 Chlorzoxazone [Parafon Forte Dsc] 1,000 mg PO TID PRN 05/12/14 09/30/17 Fenofibrate,Micronized 200 mg PO 05/12/14 09/30/17 [Fenofibrate] Gabapentin [Neurontin] 600 mg PO TID 05/12/14 09/30/17 Isosorbide Mononitrate ER [Imdur] 30 mg PO QAM 05/12/14 09/30/17 Lansoprazole [Prevacid] 30 mg PO BID 05/12/14 09/30/17 Lovastatin [Mevacor] 20 mg PO 05/12/14 09/30/17 Montelukast [Singulair] 10 mg PO 05/12/14 09/30/17 Oxybutynin Chloride [Ditropan XL] 10 mg PO BID 05/12/14 09/30/17 Temazepam [Restoril] 30 mg PO HS PRN 05/12/14 09/30/17 Albuterol Nebulized [Ventolin 2.5 mg INHALATION RT-QID PRN 02/23/16 09/30/17 Nebulized] Alendronate Sodium 70 mg PO [place] 02/23/16 09/30/17 FLUoxetine HCL [PROzac] 20 mg PO BID 02/23/16 09/30/17 Folic Acid 1 mg PO DAILY 02/23/16 09/30/17 HYDROcodone/APAP 10-325MG [[place] 1 tab PO QID PRN 02/23/16 09/30/17 10-325] Ibuprofen [Motrin] 800 mg PO Q6H PRN 02/23/16 09/30/17 amLODIPine BESYLATE [Amlodipine 10 mg PO QAM 02/23/16 09/30/17 Besylate] glipiZIDE [Glucotrol XL] 5 mg PO DAILY 02/23/16 09/30/17 traZODone HCL [Desyrel] 150 mg PO HS 02/23/16 09/30/17 DULoxetine HCL [Cymbalta] 60 mg PO DAILY 08/09/16 09/30/17 Fexofenadine HCl [Flores Allergy] 180 mg PO BID 08/09/16 09/30/17 Methotrexate Sodium [Methotrexate] 17.5 mg PO [place] 12/02/16 09/30/17 Lisinopril [Zestril] 5 mg PO QAM 04/21/17 09/30/17 Adalimumab [Humira Pen] 40 mg SQ Q14D 06/23/17 09/30/17 Azelastine HCl [Astepro] 2 spray EA NOSTRIL BID PRN 06/23/17 09/30/17 Chlorthalidone [Hygroton] 25 mg PO DAILY 06/23/17 09/30/17 Diazepam [Valium] 10 mg PO Q8H PRN 06/23/17 09/30/17 Ergocalciferol [Vitamin D2] 50,000 unit PO [place] 06/23/17 09/30/17 valACYclovir HCL [Valtrex] 1,000 mg PO BID PRN 06/23/17 09/30/17 Previous Rx's Medication Instructions Recorded Clopidogrel [Plavix] 75 mg PO DAILY #90 tab 04/26/17 Cyclobenzaprine [Flexeril] 10 mg PO TID #15 tab 06/23/17 Cyclobenzaprine [Flexeril] 10 mg PO TID #15 tab 09/30/17 Ondansetron Odt [Zofran Odt] 4 mg PO Q8HR PRN #12 tab 09/30/17 Allergies/Adverse reactions: Allergies Allergy/AdvReac Type Severity Reaction Status Date / Time Penicillins Allergy Rash/Hives Verified 09/30/17 19:36 sulfamethoxazole Allergy Rash/Hives Verified 09/30/17 19:36 [From Bactrim] trimethoprim [From Bactrim] Allergy Rash/Hives Verified 09/30/17 19:36 Review of Systems ROS Statement: Those systems with pertinent positive or pertinent negative responses have been documented in the HPI. ROS Other: All systems not noted in ROS Statement are negative. Past Medical History Past Medical History: Asthma, Coronary Artery Disease (CAD), Chest Pain / Angina , CVA/TIA, Diabetes Mellitus, Fibromyalgia, Hyperlipidemia, Hypertension, Osteoarthritis (OA), Rheumatoid Arthritis (RA) Additional Past Medical History / Comment(s): having rt lower abd pain with constipation,LUPUS, STATES WAS TOLD HAD "SILENT CVA" History of Any Multi-Drug Resistant Organisms: None Reported Past Surgical History: Heart Catheterization With Stent, Hysterectomy, Joint Replacement, Orthopedic Surgery Additional Past Surgical History / Comment(s): RIGHT FOOT, TOTAL RIGHT ANKLE, KETAN HIP REPLACEMENT Past Anesthesia/Blood Transfusion Reactions: No Reported Reaction Date of Last Stent Placement:: UNSURE Past Psychological History: Depression Smoking Status: Never smoker - Past Family History Mother Family Medical History: Coronary Artery Disease (CAD), Rheumatoid Arthritis (RA) Additional Family Medical History / Comment(s): LUNG CANCER Father Family Medical History: Cancer Additional Family Medical History / Comment(s): lung General Exam - General Exam Comments Initial Comments: This is a 67-year-old female. No acute distress. Limitations: no limitations General appearance: alert, in no apparent distress Head exam: Present: atraumatic, normocephalic, normal inspection Eye exam: Present: normal appearance, PERRL, EOMI. Absent: scleral icterus, conjunctival injection, periorbital swelling ENT exam: Present: normal exam, mucous membranes moist Neck exam: Present: normal inspection. Absent: tenderness, meningismus, lymphadenopathy Respiratory exam: Present: normal lung sounds bilaterally. Absent: respiratory distress, wheezes, rales, rhonchi, stridor Cardiovascular Exam: Present: regular rate, normal rhythm, normal heart sounds. Absent: systolic murmur, diastolic murmur, rubs, gallop, clicks GI/Abdominal exam: Present: soft, normal bowel sounds. Absent: distended, tenderness, guarding, rebound, rigid Extremities exam: Present: normal inspection, full ROM, normal capillary refill. Absent: tenderness, pedal edema, joint swelling, calf tenderness Back exam: Present: normal inspection Neurological exam: Present: alert, oriented X3, CN II-XII intact Psychiatric exam: Present: normal affect, normal mood Skin exam: Present: warm, dry, intact, normal color. Absent: rash Course Vital Signs 09/30/17 09/30/17 09/30/17 19:15 20:52 21:16 Temperature 98.3 F 97.7 F Pulse Rate 58 L 58 L 57 L Respiratory 20 16 18 Rate Blood Pressure 153/79 109/88 O2 Sat by Pulse 96 96 94 L Oximetry Medical Decision Making - Medical Decision Making 59-year-old female presents for his complaint of head injury possibly one week ago. She also complains of neck pain and nausea associated with this. She is on blood thinners. Patient reports that she decided to wait to fill she did not have some major pain at that time. She reports that over the past week she' s had a fogginess and occasional episodes of nausea. She also complains of intermittent abdominal pain. Patient is asleep abdominal tenderness on exam. Patient's labwork was reviewed and negative for any acute process. CT brain and C-spine was reviewed negative for any acute or maladies of the brain. She does have some degenerative changes within the cervical spine. Discussed in the radiology report. Patient's KUB does show some signs of constipation. Discussed that she is take some stool softeners. Patient advised to take muscle relaxants for the neck pain as well as a temperature medicine. She'll also be discharged with nausea medicine for concussion-like symptoms. Patient agrees to treatment plan will comply. Return parameters were discussed. - Lab Data Result diagrams: 09/30/17 20:14 09/30/17 20:14 Lab Results 09/30/17 09/30/17 09/30/17 Range/Units 20:14 20:14 21:15 WBC 10.4 (3.8-10.6) k/uL RBC 4.45 (3.80-5.40) m/uL Hgb 14.7 (11.4-16.0) gm/dL Hct 44.1 (34.0-46.0) % MCV 99.0 (80.0-100.0) fL MCH 33.0 (25.0-35.0) pg MCHC 33.3 (31.0-37.0) g/dL RDW 14.5 (11.5-15.5) % Plt Count 204 (150-450) k/uL Neutrophils % 69 % Lymphocytes % 20 % Monocytes % 6 % Eosinophils % 3 % Basophils % 0 % Neutrophils # 7.1 (1.3-7.7) k/uL Lymphocytes # 2.1 (1.0-4.8) k/uL Monocytes # 0.7 (0-1.0) k/uL Eosinophils # 0.3 (0-0.7) k/uL Basophils # 0.0 (0-0.2) k/uL Sodium 141 (137-145) mmol/L Potassium 4.1 (3.5-5.1) mmol/L Chloride 109 H (98-107) mmol/L Carbon Dioxide 23 (22-30) mmol/L Anion Gap 9 mmol/L BUN 22 H (7-17) mg/dL Creatinine 0.80 (0.52-1.04) mg/dL Est GFR (MDRD) Af Amer >60 (>60 ml/min/1.73 sqM) Est GFR (MDRD) Non-Af >60 (>60 ml/min/1.73 sqM) Glucose 93 (74-99) mg/dL Calcium 9.4 (8.4-10.2) mg/dL Total Bilirubin 0.2 (0.2-1.3) mg/dL AST 16 (14-36) U/L ALT 45 (9-52) U/L Alkaline Phosphatase 110 (38-126) U/L Total Protein 6.6 (6.3-8.2) g/dL Albumin 3.9 (3.5-5.0) g/dL Amylase 45 (30-110) U/L Lipase 109 (23-300) U/L Urine Color Yellow Urine Appearance Clear (Clear) Urine pH 6.0 (5.0-8.0) Ur Specific [place] 1.031 (1.001-1.035) Urine Protein Trace H (Negative) Urine Glucose (UA) Negative (Negative) Urine Ketones Negative (Negative) Urine Blood Negative (Negative) Urine Nitrite Negative (Negative) Urine Bilirubin 1+ H (Negative) Urine Urobilinogen 2.0 (<2.0) mg/dL Ur Leukocyte Esterase Negative (Negative) - Radiology Data Radiology results: report reviewed No acute intracranial normality noted, old area of encephalomalacia some inferior right frontal lobe to just prior vascular traumatic him salt. This is also noted in 2014. Cervical spine shows no acute fractures. Similar grade 1 anterolisthesis of C6-C7 but with progressive spondylitic changes especially C5- C6 were there is new grade 1 anterolisthesis. Mild to moderate stool burn N. No evidence of bowel ejection her anterior peritoneal or. Degenerative scoliosis noted. Disposition Clinical Impression: Concussion, Neck pain, Constipation Disposition: HOME SELF-CARE Condition: Good Instructions: Concussion (ED), Neck Pain (ED) Additional Instructions: Patient advised to follow-up with her primary care provider. Take the muscle relaxers as prescribed for the neck pain. Also recommend take Motrin and Tylenol. Patient can take the nausea medicine as needed for episodes of nausea. Patient was recommended take stool softeners in regards to constipation. Patient should return to the emergency department if any alarming signs or symptoms occur. Prescriptions: Cyclobenzaprine [Flexeril] 10 mg PO TID #15 tab Ondansetron Odt [Zofran Odt] 4 mg PO Q8HR PRN #12 tab PRN Reason: Nausea Referrals: Elida Baltazar MD [Primary Care Provider] - 1-2 days Time of Disposition: 21:37
[2017-09-30 20:23] LABS: Basophils % (A) 0 %; CH 33.3; CHCM 33.8; Eosinophils # (A) 0.3 k/uL (0-0.7); Eosinophils % (A) 3 %; HCT 44.1 % (34.0-46.0); HDW 2.87; HGB 14.7 gm/dL (11.4-16.0); Luc # (Auto) 0.21; Luc % (Auto) 2; Lymphocytes # (A) 2.1 k/uL (1.0-4.8); Lymphocytes % (A) 20 %; MCHC 33.3 g/dL (31.0-37.0); Monocytes # (A) 0.7 k/uL (0-1.0); Monocytes % (A) 6 %; Neutrophils # (A) 7.1 k/uL (1.3-7.7); Neutrophils % (A) 69 %; RBC 4.45 m/uL (3.80-5.40); RDW 14.5 % (11.5-15.5); WBC 10.4 k/uL (3.8-10.6); WBC (Perox) 10.15
[2017-09-30 20:34] LABS: ALT 45 U/L (9-52); AST 16 U/L (14-36); Alkaline Phosphatase 110 U/L (38-126); Amylase 45 U/L (30-110); Anion Gap 9 mmol/L; Blood Urea Nitrogen 22 mg/dL (7-17); Calcium 9.4 mg/dL (8.4-10.2); Carbon Dioxide 23 mmol/L (22-30); Chloride 109 mmol/L (98-107); Glucose 93 mg/dL (74-99); Non-African American GFR(MDRD) >60 (>60 ml/min/1.73 sqM); Potassium 4.1 mmol/L (3.5-5.1); Sodium 141 mmol/L (137-145); Total Bilirubin 0.2 mg/dL (0.2-1.3); Total Protein 6.6 g/dL (6.3-8.2)
--- NOTE | 2017-09-30 20:48 | CT ---
EXAMINATION TYPE: CT brain eulogio castillo DATE OF EXAM: 09/30/2017 COMPARISON: 05/12/2014 HISTORY: 67-year-old female Fall with head injury x1 week ago. Patient on blood thinners. CT DLP: 1416.2 mGycm Automated exposure control for dose reduction was used. Technique: Examination of the head was done in axial plane without intravenous contrast. Coronal and sagittal reconstructions performed. CT of the cervical spine was obtained in axial plane without intravenous injection of contrast mater ial. Coronal and sagittal reformatted images were obtained from the axial views for evaluation of f ractures, spinal alignment and canal. FINDINGS: Head: There is no evidence of acute intracranial hemorrhage, acute ischemic changes, mass, mass-effect, or extra-axial fluid collection. There is no effacement of cerebral sulci or basal subarachnoid cister ns. There is no hydrocephalus. There is no midline shift. Gonzáles-white matter distinction is preserv ed. Old encephalomalacia along the inferior right frontal lobe, unchanged from 2013. Paranasal sinuses and mastoid air cells are well pneumatized. Orbits and globes are intact. Cervical spine: No craniocervical junction abnormality, predental space widening, or prevertebral soft tissue swellin g. Progressively advanced disc/endplate degenerative change at C5-C6 with extensive endplate sclerosis a nd irregularity. New grade 1 anterolisthesis at this level with primarily left-sided facet arthropath y throughout the cervical spine. Similar grade 1 anterolisthesis at C6-C7. Disc osteophyte complexes at C5-C6 and C6-C7 cause moderate and mild to moderate spinal canal narrowi ng, respectively. No acute fracture of the cervical spine. Multilevel uncovertebral joint arthropathy. Variable moderate neuroforaminal stenosis, more severe on the left at C6-C7. Sagittal and coronal reformatted images confirm above findings. COMBINED IMPRESSION: 1. No acute intracranial abnormality seen. Old area of encephalomalacia in the inferior right frontal lobe suggests prior vascular or traumatic insult. This was present in 2013. 2. No acute fracture of the cervical spine. Similar grade 1 anterolisthesis at C6-C7 but with progres sive spondylitic changes especially at C5-C6 where there is a new grade 1 anterolisthesis.
--- NOTE | 2017-09-30 20:55 | XR ---
EXAMINATION TYPE: XR KUB DATE OF EXAM: 09/30/2017 CLINICAL DATA: 67-year-old female with abdominal pain, [facility] COMPARISON: 06/23/2017 FINDINGS: No evidence for free intraperitoneal air. No dilated small bowel differential air-fluid levels. Scattered [id number] stool. Air extends d istally into the rectum. Cholecystectomy clips. Degenerated scoliosis. Partially visualized right lateral hip arthroplasties. No suspicious calcifications identified. IMPRESSION: Mild to moderate stool burden. No evidence of bowel obstruction or free intraperitoneal air. Degenera morenita scoliosis.
[2017-09-30 21:17] VITALS: RESP 18
[2017-09-30 21:28] LABS: Appearance,Urine Clear (Clear); Bilirubin,Urine 1+ (Negative); Glucose,Urine (UA) Negative (Negative); Ketones,Urine Negative (Negative); Leukocyte Esterase,Urine Negative (Negative); Nitrite,Urine Negative (Negative); Protein,Urine Trace (Negative); Specific Gravity,Urine 1.031 (1.001-1.035); UA Billing (MACRO vs. MICRO) CHEM
[2017-09-30 21:57] VITALS: BP 117/62; PULSE 60; TEMP 97.2
== END 2017-09-30 21:57 | disposition home or self-care (01) ==
LOC: EC 19:05
DX: S06.0X0A Concussion without loss of consciousness, initial encounter (principal); K59.00 Constipation, unspecified; M54.2 Cervicalgia; J45.909 Unspecified asthma, uncomplicated; I25.10 Atherosclerotic heart disease of native coronary artery without angina pectoris; E11.9 Type 2 diabetes mellitus without complications; M79.7 Fibromyalgia; E78.5 Hyperlipidemia, unspecified; I10 Essential (primary) hypertension; F32.9 Major depressive disorder, single episode, unspecified; M06.9 Rheumatoid arthritis, unspecified; Z86.73 Personal history of transient ischemic attack (TIA), and cerebral infarction without residual deficits; Z95.5 Presence of coronary angioplasty implant and graft; Z90.49 Acquired absence of other specified parts of digestive tract; Z79.02 Long term (current) use of antithrombotics/antiplatelets; Z79.84 Long term (current) use of oral hypoglycemic drugs; Z79.899 Other long term (current) drug therapy; Z88.0 Allergy status to penicillin; Z88.2 Allergy status to sulfonamides; W19.XXXA Unspecified fall, initial encounter; Y92.009 Unspecified place in unspecified non-institutional (private) residence as the place of occurrence of the external cause
CPT/HCPCS: 99285; 96374; 96361; 36415; 80053; 82150; 83690; 85025; 81003; 74000; 72125; 70450; J2270

== ENCOUNTER 2017-12-14 10:47 | Emergency (ER) | payer MEDICARE, OTHER ==
[2017-12-14 12:08] LABS: Appearance,Urine Clear (Clear); Bilirubin,Urine Negative (Negative); Blood,Urine Negative (Negative); Color,Urine Yellow; Glucose,Urine (UA) Negative (Negative); Ketones,Urine Negative (Negative); Leukocyte Esterase,Urine Negative (Negative); Nitrite,Urine Negative (Negative); Protein,Urine Trace (Negative); Urobilinogen,Urine <2.0 mg/dL (<2.0)
[2017-12-14] MEDS ORDERED: HYDROcodone/APAP 10-325MG 1 EACH TAB PO ONE (12:29)
[2017-12-14 13:03] LABS: Basophils # (A) 0.1 k/uL (0-0.2); Basophils % (A) 1 %; Eosinophils # (A) 0.4 k/uL (0-0.7); Eosinophils % (A) 6 %; HGB 14.8 gm/dL (11.4-16.0); Lymphocytes # (A) 2.2 k/uL (1.0-4.8); Lymphocytes % (A) 30 %; MCH 33.6 pg (25.0-35.0); MCHC 32.1 g/dL (31.0-37.0); Macrocytosis Moderate; Mean Platelet Volume 7.7; Monocytes # (A) 0.6 k/uL (0-1.0); Monocytes % (A) 8 %; Neutrophils # (A) 3.8 k/uL (1.3-7.7); Neutrophils % (A) 52 %; Platelet Count 216 k/uL (150-450); RBC 4.39 m/uL (3.80-5.40); RDW 14.4 % (11.5-15.5); WBC 7.3 k/uL (3.8-10.6)
--- NOTE | 2017-12-14 13:13 | ED ---
General Adult HPI - General Chief complaint: Urogenital Stated complaint: Cannot Urinate Time Seen by Provider: 12/14/17 11:41 Source: patient, RN notes reviewed Mode of arrival: wheelchair Limitations: no limitations - History of Present Illness Initial comments: 67-year-old female presents emergency Department chief complaint of dysuria, unable to urinate right-sided pain. Patient states it started last night progressively getting worse. She states she is able to go but small amounts. She denies fever, chills. She states the pain feels that it's in her back. She states this feels similar to when she had kidney stones in the past. Patient states that she has slight nausea no vomiting no diarrhea no constipation. Patient states on Monday she had an MRI of her lumbar spine which showed compression fracture. She states the pain may be just related to her back. Patient does take chronic pain medication IN which she takes [place]. Patient denies any chest pain, shortness breath, headache or dizziness. - Related Data Home Medications Medication Instructions Recorded Confirmed Bisoprolol Fumarate [Zebeta] 10 mg PO [facility] 05/12/14 12/14/17 Chlorzoxazone [Parafon Forte Dsc] 1,000 mg PO TID PRN 05/12/14 12/14/17 Fenofibrate,Micronized 200 mg PO 05/12/14 12/14/17 [Fenofibrate] Gabapentin [Neurontin] 600 mg PO TID 05/12/14 12/14/17 Isosorbide Mononitrate ER [Imdur] 30 mg PO [facility] 05/12/14 12/14/17 Lansoprazole [Prevacid] 30 mg PO BID 05/12/14 12/14/17 Lovastatin [Mevacor] 20 mg PO 05/12/14 12/14/17 Montelukast [Singulair] 10 mg PO 05/12/14 12/14/17 Oxybutynin Chloride [Ditropan XL] 10 mg PO BID 05/12/14 12/14/17 Temazepam [Restoril] 30 mg PO PRN 05/12/14 12/14/17 Albuterol Nebulized [Ventolin 2.5 mg INHALATION RT-QID PRN 02/23/16 12/14/17 Nebulized] Alendronate Sodium 70 mg PO [place] 02/23/16 12/14/17 FLUoxetine HCL [PROzac] 20 mg PO BID 02/23/16 12/14/17 Folic Acid 1 mg PO DAILY 02/23/16 12/14/17 HYDROcodone/APAP 10-325MG [[place] 1 tab PO QID PRN 02/23/16 12/14/17 10-325] Ibuprofen [Motrin] 800 mg PO Q6H PRN 02/23/16 12/14/17 amLODIPine BESYLATE [Amlodipine 10 mg PO QAM 02/23/16 12/14/17 Besylate] glipiZIDE [Glucotrol XL] 5 mg PO DAILY 02/23/16 12/14/17 traZODone HCL [Desyrel] 150 mg PO HS 02/23/16 12/14/17 DULoxetine HCL [Cymbalta] 60 mg PO DAILY 08/09/16 12/14/17 Fexofenadine HCl [Flores Allergy] 180 mg PO BID 08/09/16 12/14/17 Methotrexate Sodium [Methotrexate] 17.5 mg PO [place] 12/02/16 12/14/17 Lisinopril [Zestril] 10 mg PO QAM 04/21/17 12/14/17 Adalimumab [Humira Pen] 40 mg SQ Q14D 06/23/17 12/14/17 Azelastine HCl [Astepro] 2 spray EA NOSTRIL BID PRN 06/23/17 12/14/17 Chlorthalidone [Hygroton] 25 mg PO DAILY 06/23/17 12/14/17 Diazepam [Valium] 10 mg PO Q8H PRN 06/23/17 12/14/17 Ergocalciferol [Vitamin D2] 50,000 unit PO [place] 06/23/17 12/14/17 valACYclovir HCL [Valtrex] 1,000 mg PO BID PRN 06/23/17 12/14/17 Previous Rx's Medication Instructions Recorded Clopidogrel [Plavix] 75 mg PO DAILY #90 tab 04/26/17 Cyclobenzaprine [Flexeril] 10 mg PO TID #15 tab 06/23/17 Ondansetron Odt [Zofran Odt] 4 mg PO Q8HR PRN #12 tab 09/30/17 Allergies Allergy/AdvReac Type Severity Reaction Status Date / Time Penicillins Allergy Rash/Hives Verified 12/14/17 12:15 sulfamethoxazole Allergy Rash/Hives Verified 12/14/17 12:15 [From Bactrim] trimethoprim [From Bactrim] Allergy Rash/Hives Verified 12/14/17 12:15 Review of Systems ROS Statement: Those systems with pertinent positive or pertinent negative responses have been documented in the HPI. ROS Other: All systems not noted in ROS Statement are negative. Past Medical History Past Medical History: Asthma, Coronary Artery Disease (CAD), Chest Pain / Angina , CVA/TIA, Diabetes Mellitus, Fibromyalgia, Hyperlipidemia, Hypertension, Osteoarthritis (OA), Rheumatoid Arthritis (RA) Additional Past Medical History / Comment(s): having rt lower abd pain with constipation,LUPUS, STATES WAS TOLD HAD "SILENT CVA" History of Any Multi-Drug Resistant Organisms: None Reported Past Surgical History: Heart Catheterization With Stent, Hysterectomy, Joint Replacement, Orthopedic Surgery Additional Past Surgical History / Comment(s): RIGHT FOOT, TOTAL RIGHT ANKLE, KETAN HIP REPLACEMENT Past Anesthesia/Blood Transfusion Reactions: No Reported Reaction Date of Last Stent Placement:: UNSURE Past Psychological History: Depression Smoking Status: Never smoker Past Alcohol Use History: None Reported Past Drug Use History: None Reported - Past Family History Mother Family Medical History: Coronary Artery Disease (CAD), Rheumatoid Arthritis (RA) Additional Family Medical History / Comment(s): LUNG CANCER Father Family Medical History: Cancer Additional Family Medical History / Comment(s): lung General Exam Limitations: no limitations General appearance: alert, in no apparent distress Head exam: Present: atraumatic, normocephalic, normal inspection Neck exam: Present: normal inspection, full ROM. Absent: tenderness, meningismus, lymphadenopathy Respiratory exam: Present: normal lung sounds bilaterally. Absent: respiratory distress, wheezes, rales, rhonchi, stridor Cardiovascular Exam: Present: regular rate, normal rhythm, normal heart sounds. Absent: systolic murmur, diastolic murmur, rubs, gallop, clicks GI/Abdominal exam: Present: soft, tenderness (mild right), normal bowel sounds. Absent: distended, guarding, rebound, rigid Back exam: Present: CVA tenderness (R). Absent: CVA tenderness (L) Neurological exam: Present: alert, oriented X3, CN II-XII intact Skin exam: Present: warm, dry, intact, normal color. Absent: rash Course Vital Signs 12/14/17 12/14/17 11:07 13:56 Temperature 97.8 F Pulse Rate 60 59 L Respiratory 18 18 Rate Blood Pressure 181/85 178/92 O2 Sat by Pulse 96 94 L Oximetry Medical Decision Making - Medical Decision Making 67-year-old female presented emergency department for right-sided flank pain. Patient states that she had trouble urinating though she completely emptied her bladder here patient CAT scan was reviewed no signs of infection or stone. Urinalysis is unremarkable and laboratory unremarkable. We discussed this may be related to her current back problems. Again she has no bowel incontinence or bladder retention she was able to empty her bladder. Patient has no saddle anesthesia or lower extremity paresthesias of the usual. Patient will follow- up with her primary care physician and return for any worsening symptoms. - Lab Data Result diagrams: 12/14/17 12:48 12/14/17 12:48 Lab Results 12/14/17 12/14/17 12/14/17 Range/Units 11:45 12:48 12:48 WBC 7.3 (3.8-10.6) k/uL RBC 4.39 (3.80-5.40) m/uL Hgb 14.8 (11.4-16.0) gm/dL Hct 46.0 (34.0-46.0) % MCV 104.7 H D (80.0-100.0) fL MCH 33.6 (25.0-35.0) pg MCHC 32.1 (31.0-37.0) g/dL RDW 14.4 (11.5-15.5) % Plt Count 216 (150-450) k/uL Neutrophils % 52 % Lymphocytes % 30 % Monocytes % 8 % Eosinophils % 6 % Basophils % 1 % Neutrophils # 3.8 (1.3-7.7) k/uL Lymphocytes # 2.2 (1.0-4.8) k/uL Monocytes # 0.6 (0-1.0) k/uL Eosinophils # 0.4 (0-0.7) k/uL Basophils # 0.1 (0-0.2) k/uL Macrocytosis Moderate Sodium 147 H (137-145) mmol/L Potassium 4.3 (3.5-5.1) mmol/L Chloride 109 H (98-107) mmol/L Carbon Dioxide 27 (22-30) mmol/L Anion Gap 11 mmol/L BUN 20 H (7-17) mg/dL Creatinine 0.70 (0.52-1.04) mg/dL Est GFR (MDRD) Af Amer >60 (>60 ml/min/1.73 sqM) Est GFR (MDRD) Non-Af >60 (>60 ml/min/1.73 sqM) Glucose 82 (74-99) mg/dL Plasma Lactic Acid Victor M (0.7-2.0) mmol/L Calcium 9.8 (8.4-10.2) mg/dL Total Bilirubin 0.3 (0.2-1.3) mg/dL AST 30 (14-36) U/L ALT 45 (9-52) U/L Alkaline Phosphatase 73 (38-126) U/L Total Protein 7.0 (6.3-8.2) g/dL Albumin 4.3 (3.5-5.0) g/dL Amylase 51 (30-110) U/L Lipase 153 (23-300) U/L Urine Color Yellow Urine Appearance Clear (Clear) Urine pH 6.0 (5.0-8.0) Ur Specific [place] 1.030 (1.001-1.035) Urine Protein Trace H (Negative) Urine Glucose (UA) Negative (Negative) Urine Ketones Negative (Negative) Urine Blood Negative (Negative) Urine Nitrite Negative (Negative) Urine Bilirubin Negative (Negative) Urine Urobilinogen <2.0 (<2.0) mg/dL Ur Leukocyte Esterase Negative (Negative) 12/14/17 Range/Units 12:48 WBC (3.8-10.6) k/uL RBC (3.80-5.40) m/uL Hgb (11.4-16.0) gm/dL Hct (34.0-46.0) % MCV (80.0-100.0) fL MCH (25.0-35.0) pg MCHC (31.0-37.0) g/dL RDW (11.5-15.5) % Plt Count (150-450) k/uL Neutrophils % % Lymphocytes % % Monocytes % % Eosinophils % % Basophils % % Neutrophils # (1.3-7.7) k/uL Lymphocytes # (1.0-4.8) k/uL Monocytes # (0-1.0) k/uL Eosinophils # (0-0.7) k/uL Basophils # (0-0.2) k/uL Macrocytosis Sodium (137-145) mmol/L Potassium (3.5-5.1) mmol/L Chloride (98-107) mmol/L Carbon Dioxide (22-30) mmol/L Anion Gap mmol/L BUN (7-17) mg/dL Creatinine (0.52-1.04) mg/dL Est GFR (MDRD) Af Amer (>60 ml/min/1.73 sqM) Est GFR (MDRD) Non-Af (>60 ml/min/1.73 sqM) Glucose (74-99) mg/dL Plasma Lactic Acid Victor M 0.9 (0.7-2.0) mmol/L Calcium (8.4-10.2) mg/dL Total Bilirubin (0.2-1.3) mg/dL AST (14-36) U/L ALT (9-52) U/L Alkaline Phosphatase (38-126) U/L Total Protein (6.3-8.2) g/dL Albumin (3.5-5.0) g/dL Amylase (30-110) U/L Lipase (23-300) U/L Urine Color Urine Appearance (Clear) Urine pH (5.0-8.0) Ur Specific [place] (1.001-1.035) Urine Protein (Negative) Urine Glucose (UA) (Negative) Urine Ketones (Negative) Urine Blood (Negative) Urine Nitrite (Negative) Urine Bilirubin (Negative) Urine Urobilinogen (<2.0) mg/dL Ur Leukocyte Esterase (Negative) Disposition Clinical Impression: Right flank pain, Chronic back pain Disposition: HOME SELF-CARE Condition: Stable Instructions: Flank Pain (ED) Additional Instructions: Please return to the Emergency Department if symptoms worsen or any other concerns. Referrals: Elida Baltazar MD [Primary Care Provider] - 1-2 days Time of Disposition: 14:25
[2017-12-14 13:17] LABS: ALT 45 U/L (9-52); AST 30 U/L (14-36); Albumin 4.3 g/dL (3.5-5.0); Alkaline Phosphatase 73 U/L (38-126); Amylase 51 U/L (30-110); Anion Gap 11 mmol/L; Blood Urea Nitrogen 20 mg/dL (7-17); Calcium 9.8 mg/dL (8.4-10.2); Carbon Dioxide 27 mmol/L (22-30); Chloride 109 mmol/L (98-107); Glucose 82 mg/dL (74-99); Lipase 153 U/L (23-300); Potassium 4.3 mmol/L (3.5-5.1); Sodium 147 mmol/L (137-145); Total Bilirubin 0.3 mg/dL (0.2-1.3)
[2017-12-14 13:20] LABS: MCV 104.7 fL (80.0-100.0)
--- NOTE | 2017-12-14 14:07 | CT ---
EXAMINATION TYPE: CT abdomen pelvis wo con DATE OF EXAM: 12/14/2017 COMPARISON: NONE INDICATION: Unable to urinate DLP: 1049 mGycm, Automated exposure control for dose reduction was used. CONTRAST: No intravenous contrast Study performed without Oral Contrast TECHNIQUE: Axial images were obtained from above the diaphragm to the pubic rami in the axial plane a t 5 mm thick sections. Reconstructed images are reviewed on the computer in the coronal plane. FINDINGS: Limited CT sections are obtained the lung bases. The lung bases are clear. Coronary artery calcific ation is present. CT ABDOMEN: Liver: Normal Spleen: Normal Pancreas: Normal Adrenal glands: The adrenal glands are normal. Gallbladder: Normal Kidneys: No masses are evident. No hydronephrosis is present. No cysts are present. Delayed images were obtained through the kidneys, which remain unremarkable. Aorta: Vascular calcification is within the aorta. Inferior vena cava: Normal. CT PELVIS: There is limitation to the lower pelvis due to bilateral hip prostheses and beam hardening artifact. Loops of bowel within the abdomen and pelvis are normal. There are loops of bowel which are incom pletely distended or lack oral contrast limiting their evaluation. Appendix: Normal as visualized. Urinary bladder: Normal. Genitourinary structures: Limited due to beam hardening artifact. The uterus and ovaries are not iden tified. Osseous structures: No suspicious lytic or sclerotic lesions. Degenerative changes are through the sarika mbar spine. Scoliosis and degenerative disc changes are present. Posterior endplate spurring is prese nt T11-T12 T12-L1. Milder spurring is present L2-3 L3-4. IMPRESSIONS: 1. Pelvis is limited due to significant beam hardening artifact from bilateral hip prostheses. 2. Urinary bladder is visualized appears unremarkable. This is very limited however. 3. Degenerative changes within the lumbar spine. Some endplate spurring is causing canal narrowing at the T11-12 and T12-L1 levels.
[2017-12-14] MEDS ORDERED: KETOROLAC 30 MG/ML 1 ML VIAL IVP STA (14:11)
[2017-12-14] MEDS ORDERED: ONDANSETRON 4 MG/2 ML VIAL IVP STA (15:08)
[2017-12-14] MEDS ORDERED: MORPHINE SULFATE 4 MG/ML SYRINGE IVP STA (15:08)
[2017-12-14 15:35] VITALS: BP 163/90; PULSE 76; RESP 18; TEMP 98.3
== END 2017-12-14 15:53 | disposition home or self-care (01) ==
LOC: EC 10:47
DX: G89.29 Other chronic pain (principal); M54.9 Dorsalgia, unspecified; R10.9 Unspecified abdominal pain; R30.0 Dysuria; E78.5 Hyperlipidemia, unspecified; I10 Essential (primary) hypertension; I25.10 Atherosclerotic heart disease of native coronary artery without angina pectoris; M79.7 Fibromyalgia; J45.909 Unspecified asthma, uncomplicated; E11.9 Type 2 diabetes mellitus without complications; M06.9 Rheumatoid arthritis, unspecified; M19.90 Unspecified osteoarthritis, unspecified site; F32.9 Major depressive disorder, single episode, unspecified; Z79.891 Long term (current) use of opiate analgesic; Z79.899 Other long term (current) drug therapy; Z88.0 Allergy status to penicillin; Z88.1 Allergy status to other antibiotic agents; Z86.79 Personal history of other diseases of the circulatory system
CPT/HCPCS: 36415; 80053; 82150; 83605; 83690; 85025; 81003; 87086; 74176; 99284; 96374; 96375 ×2; J2270; J2405; J1885

== ENCOUNTER 2018-01-04 00:10 | Emergency (ER) | payer MEDICARE, OTHER ==
[2018-01-04 00:27] VITALS: RESP 18; TEMP 99.2
[2018-01-04] MEDS ORDERED: MORPHINE SULFATE 4 MG/ML SYRINGE IVP STA ×2 (00:56→02:49)
[2018-01-04] MEDS ORDERED: SODIUM CHLORIDE 0.9% 1,000 ML IV STA (00:56)
[2018-01-04] MEDS ORDERED: RX INFO: IV CONTRAST WAS GIVEN 1 EACH MISC MISCELLANE PRN (00:56)
[2018-01-04] MEDS ORDERED: ONDANSETRON 4 MG/2 ML VIAL IVP STA (00:56)
[2018-01-04 01:17] LABS: Appearance,Urine Clear (Clear); Bilirubin,Urine Negative (Negative); Blood,Urine Negative (Negative); Color,Urine Light Yellow; Glucose,Urine (UA) Negative (Negative); Ketones,Urine Negative (Negative); Leukocyte Esterase,Urine Negative (Negative); Protein,Urine Negative (Negative); Specific Gravity,Urine 1.013 (1.001-1.035); Urobilinogen,Urine <2.0 mg/dL (<2.0)
[2018-01-04 01:51] LABS: Basophils % (A) 1 %; Eosinophils # (A) 0.3 k/uL (0-0.7); Eosinophils % (A) 6 %; HGB 13.6 gm/dL (11.4-16.0); Lymphocytes # (A) 1.3 k/uL (1.0-4.8); Lymphocytes % (A) 22 %; MCH 33.2 pg (25.0-35.0); MCHC 33.2 g/dL (31.0-37.0); Macrocytosis Slight; Mean Platelet Volume 7.9; Monocytes # (A) 0.3 k/uL (0-1.0); Monocytes % (A) 6 %; Neutrophils # (A) 3.8 k/uL (1.3-7.7); Neutrophils % (A) 65 %; Platelet Count 169 k/uL (150-450); RDW 14.5 % (11.5-15.5); WBC 5.9 k/uL (3.8-10.6)
--- NOTE | 2018-01-04 01:58 | ED ---
Abdominal Pain HPI - General Chief Complaint: Abdominal Pain Stated Complaint: ABD PAIN Time Seen by Provider: 01/04/18 00:29 Source: patient, EMS, RN notes reviewed, old records reviewed Mode of arrival: EMS Limitations: no limitations - History of Present Illness Initial Comments: This patient is a 67-year-old female presents emergency department today chief complaint of right lower quadrant abdominal pain. She reports that she was laying in bed and she rolled over on her side and had severe pain in her right lower quadrant. She reports that she's had no pain or symptoms prior to these episodes. No fever or chills, nausea or vomiting. She did had not had a bowel movement in the past 2 days. She denies any other symptoms. She she arrives here she reports that she is unable to urinatedue to pain and reports the pain is too severe to move. She was given a straight cath. She reports no previous urinary retention. - Related Data Home Medications Medication Instructions Recorded Confirmed Bisoprolol Fumarate [Zebeta] 10 mg PO QA 05/12/14 12/14/17 Chlorzoxazone [Parafon Forte Dsc] 1,000 mg PO TID PRN 05/12/14 12/14/17 Fenofibrate,Micronized 200 mg PO 05/12/14 12/14/17 [Fenofibrate] Gabapentin [Neurontin] 600 mg PO TID 05/12/14 12/14/17 Isosorbide Mononitrate ER [Imdur] 30 mg PO QA 05/12/14 12/14/17 Lansoprazole [Prevacid] 30 mg PO BID 05/12/14 12/14/17 Lovastatin [Mevacor] 20 mg PO 05/12/14 12/14/17 Montelukast [Singulair] 10 mg PO 05/12/14 12/14/17 Oxybutynin Chloride [Ditropan XL] 10 mg PO BID 05/12/14 12/14/17 Temazepam [Restoril] 30 mg PO PRN 05/12/14 12/14/17 Albuterol Nebulized [Ventolin 2.5 mg INHALATION RT-QID PRN 02/23/16 12/14/17 Nebulized] Alendronate Sodium 70 mg PO EDMONDSON 02/23/16 12/14/17 FLUoxetine HCL [PROzac] 20 mg PO BID 02/23/16 12/14/17 Folic Acid 1 mg PO DAILY 02/23/16 12/14/17 HYDROcodone/APAP 10-325MG [[place] 1 tab PO QID PRN 02/23/16 12/14/17 10-325] Ibuprofen [Motrin] 800 mg PO Q6H PRN 02/23/16 12/14/17 amLODIPine BESYLATE [Amlodipine 10 mg PO QAM 02/23/16 12/14/17 Besylate] glipiZIDE [Glucotrol XL] 5 mg PO DAILY 02/23/16 12/14/17 traZODone HCL [Desyrel] 150 mg PO HS 02/23/16 12/14/17 DULoxetine HCL [Cymbalta] 60 mg PO DAILY 08/09/16 12/14/17 Fexofenadine HCl [Flores Allergy] 180 mg PO BID 08/09/16 12/14/17 Methotrexate Sodium [Methotrexate] 17.5 mg PO EDMONDSON 12/02/16 12/14/17 Lisinopril [Zestril] 10 mg PO QAM 04/21/17 12/14/17 Adalimumab [Humira Pen] 40 mg SQ Q14D 06/23/17 12/14/17 Azelastine HCl [Astepro] 2 spray EA NOSTRIL BID PRN 06/23/17 12/14/17 Chlorthalidone [Hygroton] 25 mg PO DAILY 06/23/17 12/14/17 Diazepam [Valium] 10 mg PO Q8H PRN 06/23/17 12/14/17 Ergocalciferol [Vitamin D2] 50,000 unit PO EDMONDSON 06/23/17 12/14/17 valACYclovir HCL [Valtrex] 1,000 mg PO BID PRN 06/23/17 12/14/17 Previous Rx's Medication Instructions Recorded Clopidogrel [Plavix] 75 mg PO DAILY #90 tab 04/26/17 Cyclobenzaprine [Flexeril] 10 mg PO TID #15 tab 06/23/17 Ondansetron Odt [Zofran Odt] 4 mg PO Q8HR PRN #12 tab 09/30/17 Allergies Allergy/AdvReac Type Severity Reaction Status Date / Time Penicillins Allergy Rash/Hives Verified 12/14/17 12:15 sulfamethoxazole Allergy Rash/Hives Verified 12/14/17 12:15 [From Bactrim] trimethoprim [From Bactrim] Allergy Rash/Hives Verified 12/14/17 12:15 Review of Systems ROS Statement: Those systems with pertinent positive or pertinent negative responses have been documented in the HPI. ROS Other: All systems not noted in ROS Statement are negative. Past Medical History Past Medical History: Asthma, Coronary Artery Disease (CAD), Chest Pain / Angina , CVA/TIA, Diabetes Mellitus, Fibromyalgia, Hyperlipidemia, Hypertension, Osteoarthritis (OA), Rheumatoid Arthritis (RA) Additional Past Medical History / Comment(s): having rt lower abd pain with constipation,LUPUS, STATES WAS TOLD HAD "SILENT CVA" History of Any Multi-Drug Resistant Organisms: None Reported Past Surgical History: Heart Catheterization With Stent, Hysterectomy, Joint Replacement, Orthopedic Surgery Additional Past Surgical History / Comment(s): RIGHT FOOT, TOTAL RIGHT ANKLE, KETAN HIP REPLACEMENT Past Anesthesia/Blood Transfusion Reactions: No Reported Reaction Date of Last Stent Placement:: UNSURE Past Psychological History: Depression Smoking Status: Never smoker Past Alcohol Use History: None Reported Past Drug Use History: None Reported - Past Family History Mother Family Medical History: Coronary Artery Disease (CAD), Rheumatoid Arthritis (RA) Additional Family Medical History / Comment(s): LUNG CANCER Father Family Medical History: Cancer Additional Family Medical History / Comment(s): lung General Exam - General Exam Comments Initial Comments: 59-year-old female. No distress. Limitations: no limitations General appearance: alert, in no apparent distress Head exam: Present: atraumatic, normocephalic, normal inspection Eye exam: Present: normal appearance, PERRL, EOMI. Absent: scleral icterus, conjunctival injection, periorbital swelling ENT exam: Present: normal exam, mucous membranes moist Neck exam: Present: normal inspection. Absent: tenderness, meningismus, lymphadenopathy Respiratory exam: Present: normal lung sounds bilaterally. Absent: respiratory distress, wheezes, rales, rhonchi, stridor Cardiovascular Exam: Present: regular rate GI/Abdominal exam: Present: soft, tenderness (Patient reports severe RLQ tenderness), normal bowel sounds. Absent: distended, guarding, rebound, rigid Extremities exam: Present: normal inspection, full ROM, normal capillary refill. Absent: tenderness, pedal edema, joint swelling, calf tenderness Back exam: Present: normal inspection Neurological exam: Present: alert, oriented X3, CN II-XII intact Psychiatric exam: Present: normal affect, normal mood Skin exam: Present: warm, dry, intact, normal color. Absent: rash Course Vital Signs 01/04/18 01/04/18 00:21 03:24 Temperature 99.2 F Pulse Rate 88 82 Respiratory 18 18 Rate Blood Pressure 208/105 157/81 O2 Sat by Pulse 98 94 L Oximetry Medical Decision Making - Medical Decision Making Patient is a 67 year old female with RLQ tenderness for a few hours and it is worse iwth movement or palpation. She arrived showing signs of severe pain. Paitent was given IV fluids and pain medication, she requested straight cath as she was in too much pain to move. Patient lab work was all reviewed and normal. Patient later complained of pain and not beeing able to urinate, she was given goodwin catheter and pain medication. CT report shows hepatic statuses, Moderate hepatomegaly. Left atrial enlargement. Patient has multilevel dengerative changes in spine, no changes from prior. Patient informed of these results. She does have some moderate stool buden in RLQ as well, no signs of appendicitis. Patient informed of this. She stated that she figured nothing was wrong. I discussed with patient that we placed a goodwin catheter in, and concern for urinary retnetnion. She reports that she does not have difficulty time urinating, she states that she wants to have the goodwin removed. I discussed that is she returns with urinary retention she has to have a goodwin in and follow up with urology. Discussed that I believe her pain was related to gas pains and constipation, and that patient needs to follow up with PCP. She reports she will take stool softners at home. Patient is comfortable with discharge. - Lab Data Result diagrams: 01/04/18 01:31 01/04/18 01:31 Lab Results 01/04/18 01/04/18 01/04/18 Range/Units 01:08 01:31 01:31 WBC 5.9 (3.8-10.6) k/uL RBC 4.10 (3.80-5.40) m/uL Hgb 13.6 (11.4-16.0) gm/dL Hct 41.0 (34.0-46.0) % MCV 100.0 (80.0-100.0) fL MCH 33.2 (25.0-35.0) pg MCHC 33.2 (31.0-37.0) g/dL RDW 14.5 (11.5-15.5) % Plt Count 169 (150-450) k/uL Neutrophils % 65 % Lymphocytes % 22 % Monocytes % 6 % Eosinophils % 6 % Basophils % 1 % Neutrophils # 3.8 (1.3-7.7) k/uL Lymphocytes # 1.3 (1.0-4.8) k/uL Monocytes # 0.3 (0-1.0) k/uL Eosinophils # 0.3 (0-0.7) k/uL Basophils # 0.0 (0-0.2) k/uL Macrocytosis Slight PT (9.0-12.0) sec INR (<1.2) APTT (22.0-30.0) sec Sodium 146 H (137-145) mmol/L Potassium 3.8 (3.5-5.1) mmol/L Chloride 109 H (98-107) mmol/L Carbon Dioxide 26 (22-30) mmol/L Anion Gap 11 mmol/L BUN 12 (7-17) mg/dL Creatinine 0.40 L (0.52-1.04) mg/dL Est GFR (MDRD) Af Amer >60 (>60 ml/min/1.73 sqM) Est GFR (MDRD) Non-Af >60 (>60 ml/min/1.73 sqM) Glucose 124 H (74-99) mg/dL Plasma Lactic Acid Victor M (0.7-2.0) mmol/L Calcium 9.0 (8.4-10.2) mg/dL Total Bilirubin 0.5 (0.2-1.3) mg/dL AST 27 (14-36) U/L ALT 44 (9-52) U/L Alkaline Phosphatase 89 (38-126) U/L Total Protein 6.8 (6.3-8.2) g/dL Albumin 4.2 (3.5-5.0) g/dL Amylase 46 (30-110) U/L Lipase 198 (23-300) U/L Urine Color Light Yellow Urine Appearance Clear (Clear) Urine pH 6.0 (5.0-8.0) Ur Specific [place] 1.013 (1.001-1.035) Urine Protein Negative (Negative) Urine Glucose (UA) Negative (Negative) Urine Ketones Negative (Negative) Urine Blood Negative (Negative) Urine Nitrite Negative (Negative) Urine Bilirubin Negative (Negative) Urine Urobilinogen <2.0 (<2.0) mg/dL Ur Leukocyte Esterase Negative (Negative) 01/04/18 01/04/18 Range/Units 01:31 01:31 WBC (3.8-10.6) k/uL RBC (3.80-5.40) m/uL Hgb (11.4-16.0) gm/dL Hct (34.0-46.0) % MCV (80.0-100.0) fL MCH (25.0-35.0) pg MCHC (31.0-37.0) g/dL RDW (11.5-15.5) % Plt Count (150-450) k/uL Neutrophils % % Lymphocytes % % Monocytes % % Eosinophils % % Basophils % % Neutrophils # (1.3-7.7) k/uL Lymphocytes # (1.0-4.8) k/uL Monocytes # (0-1.0) k/uL Eosinophils # (0-0.7) k/uL Basophils # (0-0.2) k/uL Macrocytosis PT 9.8 (9.0-12.0) sec INR 1.0 (<1.2) APTT 22.4 (22.0-30.0) sec Sodium (137-145) mmol/L Potassium (3.5-5.1) mmol/L Chloride (98-107) mmol/L Carbon Dioxide (22-30) mmol/L Anion Gap mmol/L BUN (7-17) mg/dL Creatinine (0.52-1.04) mg/dL Est GFR (MDRD) Af Amer (>60 ml/min/1.73 sqM) Est GFR (MDRD) Non-Af (>60 ml/min/1.73 sqM) Glucose (74-99) mg/dL Plasma Lactic Acid Victor M 1.6 (0.7-2.0) mmol/L Calcium (8.4-10.2) mg/dL Total Bilirubin (0.2-1.3) mg/dL AST (14-36) U/L ALT (9-52) U/L Alkaline Phosphatase (38-126) U/L Total Protein (6.3-8.2) g/dL Albumin (3.5-5.0) g/dL Amylase (30-110) U/L Lipase (23-300) U/L Urine Color Urine Appearance (Clear) Urine pH (5.0-8.0) Ur Specific [place] (1.001-1.035) Urine Protein (Negative) Urine Glucose (UA) (Negative) Urine Ketones (Negative) Urine Blood (Negative) Urine Nitrite (Negative) Urine Bilirubin (Negative) Urine Urobilinogen (<2.0) mg/dL Ur Leukocyte Esterase (Negative) - Radiology Data Radiology results: report reviewed CT shows hepatic statuses, Moderate hepatomegaly. Left atrial enlargement. Patient has multilevel dengerative changes in spine, no changes from prior. Disposition Clinical Impression: RLQ abdominal pain, Constipation Disposition: HOME SELF-CARE Condition: Good Instructions: Abdominal Pain (ED) Additional Instructions: Follow-up with primary care provider. Return to emergency department if any alarming signs occur. Referrals: Elida Baltazar MD [Primary Care Provider] - 1-2 days Time of Disposition: 04:15
[2018-01-04 02:05] LABS: ALT 44 U/L (9-52); AST 27 U/L (14-36); Albumin 4.2 g/dL (3.5-5.0); Alkaline Phosphatase 89 U/L (38-126); Amylase 46 U/L (30-110); Anion Gap 11 mmol/L; Blood Urea Nitrogen 12 mg/dL (7-17); Carbon Dioxide 26 mmol/L (22-30); Chloride 109 mmol/L (98-107); Glucose 124 mg/dL (74-99); Lipase 198 U/L (23-300); Potassium 3.8 mmol/L (3.5-5.1); Sodium 146 mmol/L (137-145); Total Bilirubin 0.5 mg/dL (0.2-1.3); Total Protein 6.8 g/dL (6.3-8.2)
[2018-01-04 02:06] LABS: Partial Thromboplastin Time 22.4 sec (22.0-30.0); Prothrombin Time 9.8 sec (9.0-12.0)
[2018-01-04] MEDS ORDERED: LABETALOL 5 MG/ML VIAL MDV IVP STA (02:40)
[2018-01-04 03:25] VITALS: BP 157/81; PULSE 82
--- NOTE | 2018-01-04 03:51 | CT ---
PROCEDURE: CT ABDOMEN + PELVIS With Contrast HISTORY: 68-year-old female with abdominal pain. COMPARISON: CT abdomen and pelvis 12/14/2017 TECHNIQUE: After administration of 100 mL of Omnipaque 300 contrast material intravenously, CT imaging was obtained through the abdomen and pelvis. Coronal and sagittal reformations were performed. DOSE: Total Exam volume computed tomography dose index (CTDIvol) = 35.7 mGy and Dose Length Product (DLP) = 1333.6 mGY-cm. This CT exam was performed using one or more of the following dose reduction techniques: automated exposure control, adjustment of the mA and/or kV according to patient size, and/or use of iterative reconstruction technique. FINDINGS: Evaluation is limited by motion degradation. Lower thorax: Bilateral atelectasis. The left atrium is enlarged. There is a stent in the low left anterior descending coronary artery. There are calcifications of the thoracic aorta. Abdomen: The liver demonstrates diffuse low density, consistent with hepatic steatosis. The liver is moderately enlarged with right lobe measuring approximately 19 centimeters in craniocaudal dimension. Cholecystectomy clips are identified at the gallbladder fossa. The spleen, pancreas, and bilateral adrenal glands are unremarkable. Evaluation of the kidneys is limited by bolus timing, but is otherwise unremarkable. Evaluation of the GI tract is limited by lack of distention and retained stool. No bowel obstruction. Unremarkable appendix. No free fluid, free air or significant abdominal adenopathy. The abdominal vasculature demonstrates atherosclerotic calcifications. Pelvis: Evaluation of the pelvis is limited by artifact from the bilateral total hip arthroplasties. A Tyler catheter is identified in the urinary bladder. The uterus and right ovary are not visualized. The left ovary is identified and is not abnormally enlarged. No free fluid, free air or significant pelvic adenopathy. The pelvic vasculature demonstrates atherosclerotic calcifications. Bones: There are bilateral total hip arthroplasties without evidence of acute hardware complication. Multilevel degenerative changes in the spine are not significantly changed compared to prior. Multiple vacuum disks. Chronic posttraumatic deformity of the T9 vertebral body. IMPRESSION: 1. Hepatic steatosis. Moderate hepatomegaly. 2. Left atrial enlargement. 3. Other findings as detailed above.
== END 2018-01-04 04:37 | disposition home or self-care (01) ==
LOC: EC 00:10
DX: K59.00 Constipation, unspecified (principal); R16.0 Hepatomegaly, not elsewhere classified; I51.7 Cardiomegaly; M47.819 Spondylosis without myelopathy or radiculopathy, site unspecified; R33.9 Retention of urine, unspecified; I11.9 Hypertensive heart disease without heart failure; E78.5 Hyperlipidemia, unspecified; I25.10 Atherosclerotic heart disease of native coronary artery without angina pectoris; J45.909 Unspecified asthma, uncomplicated; E11.9 Type 2 diabetes mellitus without complications; M79.7 Fibromyalgia; M06.9 Rheumatoid arthritis, unspecified; F32.9 Major depressive disorder, single episode, unspecified; Z79.84 Long term (current) use of oral hypoglycemic drugs; Z79.899 Other long term (current) drug therapy; Z88.0 Allergy status to penicillin; Z88.1 Allergy status to other antibiotic agents; Z86.79 Personal history of other diseases of the circulatory system; Z87.2 Personal history of diseases of the skin and subcutaneous tissue; Z82.49 Family history of ischemic heart disease and other diseases of the circulatory system
CPT/HCPCS: 36415; 80053; 82150; 83605; 83690; 85025; 85610; 85730; 81003; 87040; 74177; 99285; 51702; 96374; 96375 ×2; 96376; 96361; J2270; J2405; Q9967

== ENCOUNTER 2018-12-29 22:37 | Inpatient (IN) | payer MEDICARE, OTHER ==
[2018-12-29 23:00] LABS: Glucose,Whole Blood 34 mg/dL (75-99)
[2018-12-29] MEDS ORDERED: DEXTROSE 50%-WATER 50 ML SYRINGE IVP STA ×2 (23:18→23:50)
--- NOTE | 2018-12-29 23:21 | ED ---
General Adult HPI - General Chief complaint: Recheck/Abnormal Lab/Rx Stated complaint: Fluctuating BP Time Seen by Provider: 12/29/18 23:03 Source: patient, family, RN notes reviewed, old records reviewed Mode of arrival: wheelchair Limitations: no limitations - History of Present Illness Initial comments: 68-year-old female history diabetes presents for hypoglycemia. Patient had been monitoring blood sugars over the past 2 days. Has had several low readings as low as in the 20s and 30s over the past 24-48 hours. Blood glucose was checked this morning at 7 AM, it was recorded as 24, she's had hypoglycemia throughout the day today. She did take her glipizide this morning. This history is obtained from the patient's daughter. Patient is confused with generalized weakness. There have been feeling throughout the day including Sweet treats and Coca-Cola. - Related Data Home Medications Medication Instructions Recorded Confirmed Bisoprolol Fumarate [Zebeta] 10 mg PO QAM 05/12/14 12/29/18 Chlorzoxazone [Parafon Forte Dsc] 1,000 mg PO TID PRN 05/12/14 12/29/18 Fenofibrate,Micronized 200 mg PO 05/12/14 12/29/18 [Fenofibrate] Gabapentin [Neurontin] 600 mg PO TID 05/12/14 12/29/18 Isosorbide Mononitrate ER [Imdur] 30 mg PO QAM 05/12/14 12/29/18 Lansoprazole [Prevacid] 30 mg PO BID 05/12/14 12/29/18 Lovastatin [Mevacor] 20 mg PO 05/12/14 12/29/18 Montelukast [Singulair] 10 mg PO 05/12/14 12/29/18 Oxybutynin Chloride [Ditropan XL] 10 mg PO BID 05/12/14 12/29/18 Temazepam [Restoril] 30 mg PO PRN 05/12/14 12/29/18 Albuterol Nebulized [Ventolin 2.5 mg INHALATION RT-QID PRN 02/23/16 12/29/18 Nebulized] Alendronate Sodium 70 mg PO 02/23/16 12/29/18 FLUoxetine HCL [PROzac] 20 mg PO BID 02/23/16 12/29/18 Folic Acid 1 mg PO DAILY 02/23/16 12/29/18 HYDROcodone/APAP 10-325MG [[place] 1 tab PO QID PRN 02/23/16 12/29/18 10-325] Ibuprofen [Motrin] 800 mg PO Q6H PRN 02/23/16 12/29/18 amLODIPine BESYLATE [Amlodipine 10 mg PO QAM 02/23/16 12/29/18 Besylate] glipiZIDE [Glucotrol XL] 5 mg PO DAILY 02/23/16 12/29/18 traZODone HCL [Desyrel] 100 - 200 mg PO HS 02/23/16 12/29/18 DULoxetine HCL [Cymbalta] 60 mg PO DAILY 08/09/16 12/29/18 Lisinopril [Zestril] 10 mg PO BID 04/21/17 12/29/18 Adalimumab [Humira Pen] 40 mg SQ Q14D 06/23/17 12/29/18 Azelastine HCl [Astepro] 2 spray EA NOSTRIL BID PRN 06/23/17 12/29/18 Ergocalciferol [Vitamin D2] 50,000 unit PO EDMONDSON 06/23/17 12/29/18 valACYclovir HCL [Valtrex] 1,000 mg PO BID PRN 06/23/17 12/29/18 Apixaban [Eliquis] 5 mg PO BID 12/29/18 12/29/18 Morphine Sulfate ER [Ms Contin] 30 mg PO Q12HR 12/29/18 12/29/18 Previous Rx's Medication Instructions Recorded Cyclobenzaprine [Flexeril] 10 mg PO TID #15 tab 06/23/17 Allergies Allergy/AdvReac Type Severity Reaction Status Date / Time Penicillins Allergy Rash/Hives Verified 12/29/18 23:40 sulfamethoxazole Allergy Rash/Hives Verified 12/29/18 23:40 [From Bactrim] trimethoprim [From Bactrim] Allergy Rash/Hives Verified 12/29/18 23:40 Review of Systems ROS Statement: Those systems with pertinent positive or pertinent negative responses have been documented in the HPI. ROS Other: All systems not noted in ROS Statement are negative. Past Medical History Past Medical History: Asthma, Coronary Artery Disease (CAD), Chest Pain / Angina , CVA/TIA, Diabetes Mellitus, Fibromyalgia, Hyperlipidemia, Hypertension, Osteoarthritis (OA), Rheumatoid Arthritis (RA) Additional Past Medical History / Comment(s): having rt lower abd pain with constipation,LUPUS, STATES WAS TOLD HAD "SILENT CVA" History of Any Multi-Drug Resistant Organisms: None Reported Past Surgical History: Heart Catheterization With Stent, Hysterectomy, Joint Replacement, Orthopedic Surgery Additional Past Surgical History / Comment(s): RIGHT FOOT, TOTAL RIGHT ANKLE, KETAN HIP REPLACEMENT Past Anesthesia/Blood Transfusion Reactions: No Reported Reaction Date of Last Stent Placement:: UNSURE Past Psychological History: Depression Smoking Status: Never smoker Past Alcohol Use History: None Reported Past Drug Use History: None Reported - Past Family History Mother Family Medical History: Coronary Artery Disease (CAD), Rheumatoid Arthritis (RA) Additional Family Medical History / Comment(s): LUNG CANCER Father Family Medical History: Cancer Additional Family Medical History / Comment(s): lung General Exam Limitations: no limitations General appearance: alert, in no apparent distress Head exam: Present: atraumatic, normocephalic Eye exam: Present: normal appearance, PERRL ENT exam: Present: normal exam Neck exam: Present: normal inspection. Absent: tenderness, meningismus Respiratory exam: Present: normal lung sounds bilaterally. Absent: respiratory distress, wheezes Cardiovascular Exam: Present: regular rate, normal rhythm GI/Abdominal exam: Present: soft. Absent: distended, tenderness, guarding Rectal exam: Present: normal inspection, normal rectal tone. Absent: black stool, bloody stool Extremities exam: Present: normal inspection, normal capillary refill. Absent: pedal edema Back exam: Present: normal inspection, full ROM Neurological exam: Present: alert, oriented X3, CN II-XII intact, other (No focal findings, patient does have some confusion). Absent: motor sensory deficit Psychiatric exam: Present: anxious Skin exam: Present: warm, dry, intact Course Vital Signs 12/29/18 22:43 Temperature 98.0 F Pulse Rate 80 Respiratory 16 Rate Blood Pressure 148/77 O2 Sat by Pulse 97 Oximetry - Reevaluation(s) Reevaluation #1: 12/30/18 01:23 Patient does report dark stools over the past several weeks. Found to be anemic. Medical Decision Making - Medical Decision Making 68-year-old female presenting with persistent hypoglycemia and confusion. Initial blood sugar in the emergency Department is 34. Patient is on oral hypoglycemic medication, she did take his medication this morning. Symptoms have been persistent over the past 2 days and blood sugar has measured low at home in the 20s and 30s. Patient given initially 1 amp of IV dextrose, her confusion resolves, she is at normal baseline with nonfocal exam. She does have persistent hypoglycemia requiring an additional 2 A of IV dextrose. She is placed on D5 infusion. She is also found to have a hemoglobin 6.7. She reports history of peptic ulcer disease and recent dark stool. Hemoccult is obtained, this is negative however there is no stool in the rectal vault. There is concern for GI bleed, placed on Protonix. Hemoglobin will be obtained in 6 hours. Patient will be admitted for persistent hypoglycemia, and anemia concern for GI bleed. - Lab Data Result diagrams: 12/29/18 23:55 12/29/18 23:10 Lab Results 12/29/18 12/29/18 12/29/18 Range/Units 22:51 23:10 23:10 WBC 8.7 (3.8-10.6) k/uL RBC 2.46 L (3.80-5.40) m/uL Hgb 6.6 L* (11.4-16.0) gm/dL Hct 22.1 L (34.0-46.0) % MCV 89.8 (80.0-100.0) fL MCH 26.8 (25.0-35.0) pg MCHC 29.8 L (31.0-37.0) g/dL RDW 21.7 H (11.5-15.5) % Plt Count 286 (150-450) k/uL Neutrophils % 63 % Lymphocytes % 22 % Monocytes % 7 % Eosinophils % 6 % Basophils % 1 % Neutrophils # 5.5 (1.3-7.7) k/uL Lymphocytes # 2.0 (1.0-4.8) k/uL Monocytes # 0.6 (0-1.0) k/uL Eosinophils # 0.5 (0-0.7) k/uL Basophils # 0.1 (0-0.2) k/uL Hypochromasia Marked Poikilocytosis Moderate Anisocytosis Moderate Sodium 143 (137-145) mmol/L Potassium 4.1 (3.5-5.1) mmol/L Chloride 110 H (98-107) mmol/L Carbon Dioxide 25 (22-30) mmol/L Anion Gap 8 mmol/L BUN 22 H (7-17) mg/dL Creatinine 0.87 (0.52-1.04) mg/dL Est GFR (CKD-EPI)AfAm 79 (>60 ml/min/1.73 sqM) Est GFR (CKD-EPI)NonAf 68 (>60 ml/min/1.73 sqM) Glucose 24 L* (74-99) mg/dL POC Glucose (mg/dL) 34 L (75-99) mg/dL POC Glu Research Interviewer ID Janel Gotti Calcium 9.4 (8.4-10.2) mg/dL Total Bilirubin 0.4 (0.2-1.3) mg/dL AST 19 (14-36) U/L ALT 21 (9-52) U/L Alkaline Phosphatase 47 (38-126) U/L Total Protein 6.1 L (6.3-8.2) g/dL Albumin 3.5 (3.5-5.0) g/dL Stool Occult Blood (Negative) Blood Type Blood Type Confirm Blood Type Recheck Antibody Screen Crossmatch Spec Expiration Date 12/29/18 12/29/18 12/29/18 Range/Units 23:10 23:46 23:55 WBC 7.0 (3.8-10.6) k/uL RBC 2.49 L (3.80-5.40) m/uL Hgb 6.7 L* (11.4-16.0) gm/dL Hct 22.3 L (34.0-46.0) % MCV 89.6 (80.0-100.0) fL MCH 27.1 (25.0-35.0) pg MCHC 30.3 L (31.0-37.0) g/dL RDW 20.7 H (11.5-15.5) % Plt Count 277 (150-450) k/uL Neutrophils % 66 % Lymphocytes % 19 % Monocytes % 7 % Eosinophils % 6 % Basophils % 0 % Neutrophils # 4.6 (1.3-7.7) k/uL Lymphocytes # 1.3 (1.0-4.8) k/uL Monocytes # 0.5 (0-1.0) k/uL Eosinophils # 0.4 (0-0.7) k/uL Basophils # 0.0 (0-0.2) k/uL Hypochromasia Marked Poikilocytosis Moderate Anisocytosis Moderate Sodium (137-145) mmol/L Potassium (3.5-5.1) mmol/L Chloride (98-107) mmol/L Carbon Dioxide (22-30) mmol/L Anion Gap mmol/L BUN (7-17) mg/dL Creatinine (0.52-1.04) mg/dL Est GFR (CKD-EPI)AfAm (>60 ml/min/1.73 sqM) Est GFR (CKD-EPI)NonAf (>60 ml/min/1.73 sqM) Glucose (74-99) mg/dL POC Glucose (mg/dL) 62 L (75-99) mg/dL POC Glu Research Interviewer ID Wes Finney Calcium (8.4-10.2) mg/dL Total Bilirubin (0.2-1.3) mg/dL AST (14-36) U/L ALT (9-52) U/L Alkaline Phosphatase (38-126) U/L Total Protein (6.3-8.2) g/dL Albumin (3.5-5.0) g/dL Stool Occult Blood (Negative) Blood Type O Positive Blood Type Confirm Blood Type Recheck CABO Indicated Antibody Screen NEGATIVE Crossmatch See Detail Spec Expiration Date 01/01/2019 - 230912/29/18 12/30/18 Range/Units 23:55 00:21 WBC (3.8-10.6) k/uL RBC (3.80-5.40) m/uL Hgb (11.4-16.0) gm/dL Hct (34.0-46.0) % MCV (80.0-100.0) fL MCH (25.0-35.0) pg MCHC (31.0-37.0) g/dL RDW (11.5-15.5) % Plt Count (150-450) k/uL Neutrophils % % Lymphocytes % % Monocytes % % Eosinophils % % Basophils % % Neutrophils # (1.3-7.7) k/uL Lymphocytes # (1.0-4.8) k/uL Monocytes # (0-1.0) k/uL Eosinophils # (0-0.7) k/uL Basophils # (0-0.2) k/uL Hypochromasia Poikilocytosis Anisocytosis Sodium (137-145) mmol/L Potassium (3.5-5.1) mmol/L Chloride (98-107) mmol/L Carbon Dioxide (22-30) mmol/L Anion Gap mmol/L BUN (7-17) mg/dL Creatinine (0.52-1.04) mg/dL Est GFR (CKD-EPI)AfAm (>60 ml/min/1.73 sqM) Est GFR (CKD-EPI)NonAf (>60 ml/min/1.73 sqM) Glucose (74-99) mg/dL POC Glucose (mg/dL) (75-99) mg/dL POC Glu Research Interviewer ID Calcium (8.4-10.2) mg/dL Total Bilirubin (0.2-1.3) mg/dL AST (14-36) U/L ALT (9-52) U/L Alkaline Phosphatase (38-126) U/L Total Protein (6.3-8.2) g/dL Albumin (3.5-5.0) g/dL Stool Occult Blood Negative (Negative) Blood Type Blood Type Confirm O Positive Blood Type Recheck Antibody Screen Crossmatch Spec Expiration Date Critical Care Time Critical Care Time: Yes Total Critical Care Time: 35 Disposition Clinical Impression: Hypoglycemia, Anemia, GI bleed Disposition: ADMITTED IP TO THIS [facility] Condition: Stable Is patient prescribed a controlled substance at d/c from ED?: No Referrals: Elida Baltazar MD [Primary Care Provider] - 1-2 days Decision to Admit Reason: Admit from EC Decision Date: 12/30/18 Decision Time: 01:27
[2018-12-29 23:29] LABS: Anisocytosis Moderate; Basophils # (A) 0.1 k/uL (0-0.2); Basophils % (A) 1 %; Eosinophils # (A) 0.5 k/uL (0-0.7); Eosinophils % (A) 6 %; HCT 22.1 % (34.0-46.0); Hypochromasia Marked; Lymphocytes % (A) 22 %; MCH 26.8 pg (25.0-35.0); MCHC 29.8 g/dL (31.0-37.0); MCV 89.8 fL (80.0-100.0); Mean Platelet Volume 7.7; Monocytes # (A) 0.6 k/uL (0-1.0); Monocytes % (A) 7 %; Neutrophils # (A) 5.5 k/uL (1.3-7.7); Neutrophils % (A) 63 %; Platelet Count 286 k/uL (150-450); Poikilocytosis Moderate; RBC 2.46 m/uL (3.80-5.40); RDW 21.7 % (11.5-15.5); WBC 8.7 k/uL (3.8-10.6)
[2018-12-29 23:34] LABS: HGB 6.6 gm/dL (11.4-16.0)
[2018-12-29 23:39] LABS: Albumin 3.5 g/dL (3.5-5.0); Calcium 9.4 mg/dL (8.4-10.2); Potassium 4.1 mmol/L (3.5-5.1); Total Bilirubin 0.4 mg/dL (0.2-1.3); Total Protein 6.1 g/dL (6.3-8.2)
[2018-12-29 23:58] LABS: Glucose,Whole Blood 62 mg/dL (75-99)
[2018-12-30 00:15] LABS: Anisocytosis Moderate; Basophils % (A) 0 %; Eosinophils # (A) 0.4 k/uL (0-0.7); Eosinophils % (A) 6 %; HCT 22.3 % (34.0-46.0); Hypochromasia Marked; Lymphocytes # (A) 1.3 k/uL (1.0-4.8); Lymphocytes % (A) 19 %; MCH 27.1 pg (25.0-35.0); MCHC 30.3 g/dL (31.0-37.0); MCV 89.6 fL (80.0-100.0); Mean Platelet Volume 7.7; Monocytes # (A) 0.5 k/uL (0-1.0); Monocytes % (A) 7 %; Neutrophils # (A) 4.6 k/uL (1.3-7.7); Neutrophils % (A) 66 %; Platelet Count 277 k/uL (150-450); Poikilocytosis Moderate; RBC 2.49 m/uL (3.80-5.40); RDW 20.7 % (11.5-15.5)
[2018-12-30 00:17] LABS: HGB 6.7 gm/dL (11.4-16.0)
[2018-12-30] MEDS ORDERED: PANTOPRAZOLE 40 MG/10 ML VIAL IVP STA (00:18)
[2018-12-30] MEDS: D5-0.45% NACL WITH KCL 20MEQ/L 1,000 ML IV SCH ×2 (01:02→12:58)
[2018-12-30] MEDS ORDERED: MORPHINE SULFATE 4 MG/ML SYRINGE IVP STA (01:17)
[2018-12-30] MEDS ORDERED: ONDANSETRON 4 MG/2 ML VIAL IVP PRN (01:21)
[2018-12-30] MEDS ORDERED: NALOXONE 0.4 MG/ML 1 ML VIAL IV PRN (01:21)
[2018-12-30] MEDS ORDERED: DEXTROSE 50%-WATER 50 ML SYRINGE IVP STA (01:24)
[2018-12-30 01:38] LABS: Glucose,Whole Blood 36 mg/dL (75-99)
[2018-12-30 02:09] LABS: Glucose,Whole Blood 88 mg/dL (75-99)
[2018-12-30 02:44] LABS: Partial Thromboplastin Time 22.4 sec (22.0-30.0); Prothrombin Time 10.4 sec (9.0-12.0)
[2018-12-30 03:11] LABS: Glucose,Whole Blood 59 mg/dL (75-99)
[2018-12-30 03:51] LABS: Glucose,Whole Blood 75 mg/dL (75-99)
[2018-12-30 04:38] LABS: Glucose,Whole Blood 64 mg/dL (75-99)
[2018-12-30 05:25] LABS: Glucose,Whole Blood 70 mg/dL (75-99)
[2018-12-30 06:28] LABS: Glucose,Whole Blood 88 mg/dL (75-99)
[2018-12-30] MEDS: HYDROcodone/APAP 10-325MG 1 EACH TAB PO PRN (06:42)
[2018-12-30] MEDS: PANTOPRAZOLE 40 MG/10 ML VIAL IVP SCH ×2 (08:54→20:17)
[2018-12-30] MEDS ORDERED: MORPHINE SULFATE ER 30 MG TABLET PO SCH (09:00)
[2018-12-30] MEDS ORDERED: HYDROcodone/APAP 10-325MG 1 EACH TAB PO SCH (09:00)
[2018-12-30 09:18] LABS: Glucose,Whole Blood 216 mg/dL (75-99)
[2018-12-30 09:48] LABS: Appearance,Urine Clear (Clear); Bilirubin,Urine Negative (Negative); Blood,Urine Negative (Negative); Color,Urine Light Yellow; Glucose,Urine (UA) 3+ (Negative); Ketones,Urine Negative (Negative); Leukocyte Esterase,Urine Negative (Negative); Nitrite,Urine Negative (Negative); PH, Urine 6.5 (5.0-8.0); Protein,Urine Negative (Negative); Specific Gravity,Urine 1.009 (1.001-1.035); Urobilinogen,Urine <2.0 mg/dL (<2.0)
[2018-12-30] MEDS ORDERED: TEMAZEPAM 30 MG CAP PO PRN (11:05)
[2018-12-30] MEDS ORDERED: ALBUTEROL NEBULIZED 2.5 MG/3 ML INHALATION PRN (11:05)
[2018-12-30] MEDS ORDERED: AZELASTINE 137MCG/SPRAY EA NOSTRIL PRN (11:05)
[2018-12-30] MEDS ORDERED: CHLORZOXAZONE PO PRN (11:05)
[2018-12-30] MEDS ORDERED: ALENDRONATE SODIUM 70 MG PO SCH (11:15)
[2018-12-30 11:22] LABS: Glucose,Whole Blood 214 mg/dL (75-99)
[2018-12-30 11:43] LABS: Anisocytosis Moderate; Basophils # (A) 0.1 k/uL (0-0.2); Basophils % (A) 1 %; Eosinophils # (A) 0.3 k/uL (0-0.7); Eosinophils % (A) 5 %; HGB 7.6 gm/dL (11.4-16.0); Hypochromasia Marked; Lymphocytes # (A) 1.3 k/uL (1.0-4.8); Lymphocytes % (A) 21 %; MCH 26.8 pg (25.0-35.0); MCHC 29.2 g/dL (31.0-37.0); MCV 91.8 fL (80.0-100.0); Macrocytosis Slight; Mean Platelet Volume 8.2; Monocytes # (A) 0.4 k/uL (0-1.0); Monocytes % (A) 7 %; Neutrophils # (A) 3.8 k/uL (1.3-7.7); Neutrophils % (A) 64 %; Platelet Count 255 k/uL (150-450); Poikilocytosis Moderate; RBC 2.84 m/uL (3.80-5.40); RDW 20.2 % (11.5-15.5)
[2018-12-30 11:48] LABS: ALT 20 U/L (9-52); AST 16 U/L (14-36); Albumin 3.2 g/dL (3.5-5.0); Alkaline Phosphatase 50 U/L (38-126); Anion Gap 7 mmol/L; Blood Urea Nitrogen 21 mg/dL (7-17); Calcium 8.4 mg/dL (8.4-10.2); Carbon Dioxide 20 mmol/L (22-30); Chloride 110 mmol/L (98-107); Glucose 231 mg/dL (74-99); Potassium 4.9 mmol/L (3.5-5.1); Sodium 137 mmol/L (137-145); Total Bilirubin 0.4 mg/dL (0.2-1.3); Total Protein 5.5 g/dL (6.3-8.2)
[2018-12-30] MEDS ORDERED: ERGOCALCIFEROL 50,000 UNIT CAP PO SCH (12:00)
[2018-12-30] MEDS: BISOPROLOL 5 MG TAB PO SCH (12:02)
[2018-12-30] MEDS: amLODIPine 10 MG TAB PO SCH (12:04)
[2018-12-30] MEDS ORDERED: HYDROcodone/APAP 10-325MG 1 EACH TAB PO ONE (12:21)
--- NOTE | 2018-12-30 13:46 | XR ---
EXAMINATION TYPE: XR abdomen 1V DATE OF EXAM: 12/30/2018 COMPARISON: 11/30/2016 INDICATION: Abdomen pain TECHNIQUE: Single view abdomen FINDINGS: There is been a prior cholecystectomy. There is a nonspecific bowel gas pattern. Air is within the colon. Psoas margins are normal. No organomegaly is present. Laminectomies at L3-4 and 5 are evident. Degenerative disc changes are present to the scoliotic lumba r spine. Bilateral hip prostheses are present. IMPRESSION: 1. Nonspecific abdomen
[2018-12-30] MEDS: GABAPENTIN 300 MG CAP PO SCH ×2 (15:14→21:25)
[2018-12-30] MEDS: CYCLOBENZAPRINE 10 MG TAB PO SCH ×2 (15:14→21:25)
--- NOTE | 2018-12-30 16:22 | P.HPIM ---
History of Present Illness H&P Date: 12/30/18 68-year-old female history diabetes presents for hypoglycemia. Patient had been monitoring blood sugars over the past 2 days. Has had several low readings as low as in the 20s and 30s over the past 24-48 hours. Blood glucose was checked this morning at 7 AM, it was recorded as 24, she's had hypoglycemia throughout the day today. She did take her glipizide this morning. This history is obtained from the patient's daughter. Patient is confused with generalized weakness. There have been feeling throughout the day including Sweet treats and Coca-Cola. Patient does give history of black tarry stools a few weeks prior to admission at which time patient made an appointment with PCP; patient relates by the time of her appointment symptoms had resolved so she did not follow-up with PCP Workup in ED was significant for marked anemia; patient is admitted for further GI evaluation Review of Systems Constitutional: Reports weakness, Denies chills, Denies fever Eyes: denies blurred vision Ears, nose, mouth and throat: Denies headache Cardiovascular: Denies chest pain, Denies shortness of breath Respiratory: Denies cough with sputum Gastrointestinal: Reports melena, Denies abdominal pain Musculoskeletal: Denies gait dysfunction Integumentary: Denies color changes, Denies depigmentation, Denies rash Neurological: Denies confusion, Denies double vision, Denies numbness Psychiatric: Denies anxiety, Denies confusion Endocrine: Denies cold intolerance, Denies excessive sweating, Denies heat intolerance Hematologic/Lymphatic: Denies easy bruising, Denies lymphadenopathy Past Medical History Past Medical History: Asthma, Coronary Artery Disease (CAD), Chest Pain / Angina , CVA/TIA, Diabetes Mellitus, Deep Vein Thrombosis (DVT), Fibromyalgia, Hyperlipidemia, Hypertension, Osteoarthritis (OA), Rheumatoid Arthritis (RA) Additional Past Medical History / Comment(s): having rt lower abd pain with constipation,LUPUS, STATES WAS TOLD HAD "SILENT CVA" History of Any Multi-Drug Resistant Organisms: None Reported Past Surgical History: Heart Catheterization With Stent, Hysterectomy, Joint Replacement, Orthopedic Surgery Additional Past Surgical History / Comment(s): RIGHT FOOT, TOTAL RIGHT ANKLE, KETAN HIP REPLACEMENT, Back surgery Past Anesthesia/Blood Transfusion Reactions: No Reported Reaction Additional Past Anesthesia/Blood Transfusion Reaction / Comment(s): Disoriented with anesthesia. Date of Last Stent Placement:: UNSURE Past Psychological History: Depression Smoking Status: Never smoker Past Alcohol Use History: None Reported Past Drug Use History: None Reported - Past Family History Mother Family Medical History: Coronary Artery Disease (CAD), Rheumatoid Arthritis (RA) Additional Family Medical History / Comment(s): LUNG CANCER Father Family Medical History: Cancer Additional Family Medical History / Comment(s): lung Medications and Allergies Home Medications Medication Instructions Recorded Confirmed Type Bisoprolol Fumarate [Zebeta] 10 mg PO QAM 05/12/14 12/29/18 History Chlorzoxazone [Parafon Forte Dsc] 1,000 mg PO TID PRN 05/12/14 12/29/18 History Fenofibrate,Micronized 200 mg PO HS 05/12/14 12/29/18 History [Fenofibrate] Gabapentin [Neurontin] 600 mg PO TID 05/12/14 12/29/18 History Isosorbide Mononitrate ER [Imdur] 30 mg PO QAM 05/12/14 12/29/18 History Lansoprazole [Prevacid] 30 mg PO BID 05/12/14 12/29/18 History Lovastatin [Mevacor] 20 mg PO HS 05/12/14 12/29/18 History Montelukast [Singulair] 10 mg PO HS 05/12/14 12/29/18 History Oxybutynin Chloride [Ditropan XL] 10 mg PO BID 05/12/14 12/29/18 History Temazepam [Restoril] 30 mg PO HS PRN 05/12/14 12/29/18 History Albuterol Nebulized [Ventolin 2.5 mg INHALATION RT-QID PRN 02/23/16 12/29/18 History Nebulized] Alendronate Sodium 70 mg PO EDMONDSON 02/23/16 12/29/18 History FLUoxetine HCL [PROzac] 20 mg PO BID 02/23/16 12/29/18 History Folic Acid 1 mg PO DAILY 02/23/16 12/29/18 History HYDROcodone/APAP 10-325MG [[place] 1 tab PO BID 02/23/16 12/30/18 History 10-325] Ibuprofen [Motrin] 800 mg PO Q6H PRN 02/23/16 12/29/18 History amLODIPine BESYLATE [Amlodipine 10 mg PO QAM 02/23/16 12/29/18 History Besylate] glipiZIDE [Glucotrol XL] 5 mg PO DAILY 02/23/16 12/29/18 History traZODone HCL [Desyrel] 100 - 200 mg PO HS 02/23/16 12/29/18 History DULoxetine HCL [Cymbalta] 60 mg PO DAILY 08/09/16 12/29/18 History Lisinopril [Zestril] 10 mg PO BID 04/21/17 12/29/18 History Adalimumab [Humira Pen] 40 mg SQ Q14D 06/23/17 12/29/18 History Azelastine HCl [Astepro] 2 spray EA NOSTRIL BID PRN 06/23/17 12/29/18 History Cyclobenzaprine [Flexeril] 10 mg PO TID #15 tab 06/23/17 12/29/18 Rx Ergocalciferol [Vitamin D2] 50,000 unit PO EDMONDSON 06/23/17 12/29/18 History valACYclovir HCL [Valtrex] 1,000 mg PO BID PRN 06/23/17 12/29/18 History Apixaban [Eliquis] 5 mg PO BID 12/29/18 12/29/18 History Morphine Sulfate ER [Ms Contin] 30 mg PO Q12HR 12/29/18 12/29/18 History Methotrexate 25mg/Iml 0.8 ml SQ WEEKLY 12/30/18 History Allergies Allergy/AdvReac Type Severity Reaction Status Date / Time Penicillins Allergy Rash/Hives Verified 12/29/18 23:40 sulfamethoxazole Allergy Rash/Hives Verified 12/29/18 23:40 [From Bactrim] trimethoprim [From Bactrim] Allergy Rash/Hives Verified 12/29/18 23:40 Physical Exam Vitals: Vital Signs Temp Pulse Pulse Resp BP BP Pulse Ox 12/30/18 08:40 98.7 F 65 18 175/77 98 12/30/18 06:02 59 L 18 12/30/18 06:01 98.5 F 59 L 18 162/70 97 12/30/18 05:51 98.6 F 64 16 142/72 94 L 12/30/18 05:49 98.6 F 64 16 142/72 94 L 12/30/18 03:07 98.9 F 71 20 142/87 02/24/19 02:57 98.4 F 68 18 123/74 94 L 12/30/18 02:37 98.6 F 63 20 120/90 94 L 12/30/18 02:27 98.5 F 64 20 134/72 93 L 12/29/18 22:43 98.0 F 80 16 148/77 97 Intake and Output 12/29/18 12/30/18 12/30/18 22:59 06:59 14:59 Intake Total 960 300 Output Total 300 Balance 660 300 Intake: Amount of Fluid Infused ( 650 ml) Oral 300 Blood Product 310 Rc As-1 Unit 310 [id number] Output: Urine 300 Other: Voiding Method Bedside Commode Weight 73.482 kg 74.1 kg Limitations: no limitations General appearance: alert, in no apparent distress Head exam: Present: atraumatic, normocephalic Eye exam: Present: normal appearance, PERRL ENT exam: Present: normal exam Neck exam: Present: normal inspection. Absent: tenderness, meningismus Respiratory exam: Present: normal lung sounds bilaterally. Absent: respiratory distress, wheezes Cardiovascular Exam: Present: regular rate, normal rhythm GI/Abdominal exam: Present: soft. Absent: distended, tenderness, guarding Rectal exam: Present: normal inspection, normal rectal tone. Absent: black stool, bloody stool Extremities exam: Present: normal inspection, normal capillary refill. Absent: pedal edema Back exam: Present: normal inspection, full ROM Neurological exam: Present: alert, oriented X3, CN II-XII intact, other (No focal findings, patient does have some confusion). Absent: motor sensory deficit Psychiatric exam: Present: anxious Skin exam: Present: warm, dry, intact Results CBC & Chem 7: 12/30/18 10:37 12/30/18 10:37 Labs: Abnormal Lab Results - Last 24 Hours (Table) 12/29/18 12/29/18 12/29/18 Range/Units 22:51 23:10 23:10 RBC 2.46 L (3.80-5.40) m/uL Hgb 6.6 L* (11.4-16.0) gm/dL Hct 22.1 L (34.0-46.0) % MCHC 29.8 L (31.0-37.0) g/dL RDW 21.7 H (11.5-15.5) % Chloride 110 H (98-107) mmol/L BUN 22 H (7-17) mg/dL Glucose 24 L* (74-99) mg/dL POC Glucose (mg/dL) 34 L (75-99) mg/dL Total Protein 6.1 L (6.3-8.2) g/dL Urine Glucose (UA) (Negative) Crossmatch 12/29/18 12/29/18 12/29/18 Range/Units 23:10 23:46 23:55 RBC 2.49 L (3.80-5.40) m/uL Hgb 6.7 L* (11.4-16.0) gm/dL Hct 22.3 L (34.0-46.0) % MCHC 30.3 L (31.0-37.0) g/dL RDW 20.7 H (11.5-15.5) % Chloride (98-107) mmol/L BUN (7-17) mg/dL Glucose (74-99) mg/dL POC Glucose (mg/dL) 62 L (75-99) mg/dL Total Protein (6.3-8.2) g/dL Urine Glucose (UA) (Negative) Crossmatch See Detail 12/30/18 12/30/18 12/30/18 Range/Units 01:23 03:09 04:24 RBC (3.80-5.40) m/uL Hgb (11.4-16.0) gm/dL Hct (34.0-46.0) % MCHC (31.0-37.0) g/dL RDW (11.5-15.5) % Chloride (98-107) mmol/L BUN (7-17) mg/dL Glucose (74-99) mg/dL POC Glucose (mg/dL) 36 L 59 L 64 L (75-99) mg/dL Total Protein (6.3-8.2) g/dL Urine Glucose (UA) (Negative) Crossmatch 12/30/18 12/30/18 12/30/18 Range/Units 04:58 09:06 09:30 RBC (3.80-5.40) m/uL Hgb (11.4-16.0) gm/dL Hct (34.0-46.0) % MCHC (31.0-37.0) g/dL RDW (11.5-15.5) % Chloride (98-107) mmol/L BUN (7-17) mg/dL Glucose (74-99) mg/dL POC Glucose (mg/dL) 70 L 216 H (75-99) mg/dL Total Protein (6.3-8.2) g/dL Urine Glucose (UA) 3+ H (Negative) Crossmatch Thrombosis Risk Factor Assmnt - Choose All That Apply Any of the Below Risk Factors Present?: Yes Each Factor Represents 1 point: Swollen legs (current) Other Risk Factors: Yes Each Risk Factor Represents 2 Points: Age 61-74 years Each Risk Factor Represents 3 Points: History of DVT/PE Thrombosis Risk Factor Assessment Total Risk Factor Score: 6 Thrombosis Risk Factor Assessment Level: High Risk Assessment and Plan Assessment: 1. Persistent hypoglycemia - Start patient on IV fluids D5 half-normal saline - We will hold off on oral hypoglycemic agents and monitor Accu-Cheks every before meals and at bedtime with insulin sliding scale 2. Severe symptomatic anemia 3. Hypertension 4. Hyperlipidemia; Lipitor 10 mg by mouth daily at bedtime 5. Diabetes mellitus 2 - Hold off on oral hypoglycemic agents - Monitor Accu-Cheks before meals and at bedtime with insulin sliding scale 6. CVA/TIA; patient takes aspirin and Eliquis; hold due to GI bleed 7. Asthma; not in exacerbation 8. Coronary artery disease; stable on these of prolonged 10 mg daily and Imdur 60 mg daily 9. DVT prophylaxis; SCDs only secondary to GI. CODE STATUS; full code
[2018-12-30 16:38] LABS: Glucose,Whole Blood 249 mg/dL (75-99)
[2018-12-30] MEDS ORDERED: INSULIN ASPART (NovoLOG) 100 UNIT/ML VIAL SQ ONE (18:00)
--- NOTE | 2018-12-30 19:14 | P.CONS ---
History of Present Illness - Reason for Consult Consult date: 12/30/18 Anemia Requesting physician: Rich Brandon - Chief Complaint Hypoglycemia - History of Present Illness 68-year-old female with medical history significant for diabetes mellitus who presented to the hospital for investigation of episodes of hypoglycemia. The patient reports multiple episodes of hypoglycemia during the 24-48 hours prior to presentation. The patient has had associated weakness and confusion. On presentation to the hospital the patient was found to be anemic with a hemoglobin of 6.6. Stool testing for occult blood was negative. The patient reports that bowel movements have been regular prior to admission at her baseline of 3 nonbloody bowel movements daily. However the patient does report that approximately 1 month ago she had a melanotic bowel movement. She also states that she is taking Motrin twice daily. Prior investigation with endoscopy included a colonoscopy in 08/2017 for history of colonic polyps at which time the examination was negative. Patient's hemoglobin was initially 6.6 on presentation and found to be 6.7 on repeat blood draw. She reports that she was previously on Prevacid therapy however she is not taking any PPIs at this time as her insurance company will not cover them. No nausea, vomiting, or coffee-ground emesis reported. Review of Systems REVIEW OF SYSTEMS: CONSTITUTIONAL: Denies any fevers, chills, weight change but does report fatigue. CARDIOVASCULAR: Denies any chest pain, palpitations high or low blood pressures RESPIRATORY: Denies any shortness of breath, hemoptysis or cough. GENITOURINARY: No dysuria or hematuria. MUSCULOSKELETAL: No weakness reported. SKIN: Denies any new rashes or lesions, jaundice or pallor. PSYCHIATRIC: Denies any depression or anxiety. NEUROLOGY: Denies headache, denies any new focal deficits, the patient had episodes of confusion associated with low blood sugar. EARS/NOSE/THROAT: No recent hearing change, congestion, nasal discharge or sore throat. EYES: No pain in eyes, discharge or change in vision. GASTROINTESTINAL: As per HPI. Past Medical History Past Medical History: Asthma, Coronary Artery Disease (CAD), Chest Pain / Angina , CVA/TIA, Diabetes Mellitus, Deep Vein Thrombosis (DVT), Fibromyalgia, Hyperlipidemia, Hypertension, Osteoarthritis (OA), Rheumatoid Arthritis (RA) Additional Past Medical History / Comment(s): having rt lower abd pain with constipation,LUPUS, STATES WAS TOLD HAD "SILENT CVA" History of Any Multi-Drug Resistant Organisms: None Reported Past Surgical History: Heart Catheterization With Stent, Hysterectomy, Joint Replacement, Orthopedic Surgery Additional Past Surgical History / Comment(s): RIGHT FOOT, TOTAL RIGHT ANKLE, KETAN HIP REPLACEMENT, Back surgery Past Anesthesia/Blood Transfusion Reactions: No Reported Reaction Additional Past Anesthesia/Blood Transfusion Reaction / Comm: Disoriented with anesthesia. Date of Last Stent Placement:: UNSURE Past Psychological History: Depression Smoking Status: Never smoker Past Alcohol Use History: None Reported Past Drug Use History: None Reported - Past Family History Mother Family Medical History: Coronary Artery Disease (CAD), Rheumatoid Arthritis (RA) Additional Family Medical History / Comment(s): LUNG CANCER Father Family Medical History: Cancer Additional Family Medical History / Comment(s): lung Medications and Allergies Home Medications Medication Instructions Recorded Confirmed Type Bisoprolol Fumarate [Zebeta] 10 mg PO QA 05/12/14 12/29/18 History Chlorzoxazone [Parafon Forte Dsc] 1,000 mg PO TID PRN 05/12/14 12/29/18 History Fenofibrate,Micronized 200 mg PO 05/12/14 12/29/18 History [Fenofibrate] Gabapentin [Neurontin] 600 mg PO TID 05/12/14 12/29/18 History Isosorbide Mononitrate ER [Imdur] 30 mg PO [facility] 05/12/14 12/29/18 History Lansoprazole [Prevacid] 30 mg PO BID 05/12/14 12/29/18 History Lovastatin [Mevacor] 20 mg PO 05/12/14 12/29/18 History Montelukast [Singulair] 10 mg PO 05/12/14 12/29/18 History Oxybutynin Chloride [Ditropan XL] 10 mg PO BID 05/12/14 12/29/18 History Temazepam [Restoril] 30 mg PO PRN 05/12/14 12/29/18 History Albuterol Nebulized [Ventolin 2.5 mg INHALATION RT-QID PRN 02/23/16 12/29/18 History Nebulized] Alendronate Sodium 70 mg PO 02/23/16 12/29/18 History FLUoxetine HCL [PROzac] 20 mg PO BID 02/23/16 12/29/18 History Folic Acid 1 mg PO DAILY 02/23/16 12/29/18 History HYDROcodone/APAP 10-325MG [[place] 1 tab PO BID 02/23/16 12/30/18 History 10-325] Ibuprofen [Motrin] 800 mg PO Q6H PRN 02/23/16 12/29/18 History amLODIPine BESYLATE [Amlodipine 10 mg PO QAM 02/23/16 12/29/18 History Besylate] glipiZIDE [Glucotrol XL] 5 mg PO DAILY 02/23/16 12/29/18 History traZODone HCL [Desyrel] 100 - 200 mg PO HS 02/23/16 12/29/18 History DULoxetine HCL [Cymbalta] 60 mg PO DAILY 08/09/16 12/29/18 History Lisinopril [Zestril] 10 mg PO BID 04/21/17 12/29/18 History Adalimumab [Humira Pen] 40 mg SQ Q14D 06/23/17 12/29/18 History Azelastine HCl [Astepro] 2 spray EA NOSTRIL BID PRN 06/23/17 12/29/18 History Cyclobenzaprine [Flexeril] 10 mg PO TID #15 tab 06/23/17 12/29/18 Rx Ergocalciferol [Vitamin D2] 50,000 unit PO [place] 06/23/17 12/29/18 History valACYclovir HCL [Valtrex] 1,000 mg PO BID PRN 06/23/17 12/29/18 History Apixaban [Eliquis] 5 mg PO BID 12/29/18 12/29/18 History Morphine Sulfate ER [Ms Contin] 30 mg PO Q12HR 12/29/18 12/29/18 History Methotrexate 25mg/Iml 0.8 ml SQ WEEKLY 12/30/18 History Allergies Allergy/AdvReac Type Severity Reaction Status Date / Time Penicillins Allergy Rash/Hives Verified 12/29/18 23:40 sulfamethoxazole Allergy Rash/Hives Verified 12/29/18 23:40 [From Bactrim] trimethoprim [From Bactrim] Allergy Rash/Hives Verified 12/29/18 23:40 Physical Exam Vitals: Vital Signs Temp Pulse Pulse Resp BP BP Pulse Ox 12/30/18 16:00 62 18 151/63 96 12/30/18 10:59 82 18 180/84 96 12/30/18 08:40 98.7 F 65 18 175/77 98 12/30/18 06:02 59 L 18 12/30/18 06:01 98.5 F 59 L 18 162/70 97 12/30/18 05:51 98.6 F 64 16 142/72 94 L 12/30/18 05:49 98.6 F 64 16 142/72 94 L 12/30/18 03:07 98.9 F 71 20 142/87 12/30/18 02:57 98.4 F 68 18 123/74 94 L 12/30/18 02:37 98.6 F 63 20 120/90 94 L 12/30/18 02:27 98.5 F 64 20 134/72 93 L 12/29/18 22:43 98.0 F 80 16 148/77 97 Intake and Output 12/30/18 12/30/18 12/30/18 06:59 14:59 22:59 Intake Total 960 600 300 Output Total 300 250 Balance 660 350 300 Intake: Amount of Fluid Infused ( 650 ml) Intake, IV Titration 300 Amount D5-0.45% NaCl with KCl 300 20Meq/l 1,000 ml @ 150 mls/hr IV .Q6H40M [facility] Rx# :[id number] Oral 300 300 Blood Product 310 Rc As-1 Unit 310 [id number] Output: Urine 300 250 Other: Voiding Method Bedside Commode Weight 74.1 kg On physical examination, patient appears comfortable in no apparent distress. HEAD: Normocephalic, atraumatic. EYES: No scleral icterus. No conjunctival injection. MOUTH: No lesions, tongue midline. NECK: Trachea midline, no gross abnormalities. CHEST: Clear to auscultation with no wheezing or rhonchi appreciated. HEART: Regular rate and rhythm. ABDOMEN: Soft, obese, more protuberant on the right side which the patient states is chronic. Bowel sounds are positive. No organomegaly. No guarding or rigidity. EXTREMITIES: No pedal edema. SKIN: No rashes, no jaundice. NEUROLOGIC: Alert and oriented. No focal deficits. Results CBC & Chem 7: 12/30/18 10:37 12/30/18 10:37 Labs: Abnormal Lab Results - Last 24 Hours (Table) 12/29/18 12/29/1812/29/19 Range/Units 22:51 23:10 23:10 RBC 2.46 L (3.80-5.40) m/uL Hgb 6.6 L* (11.4-16.0) gm/dL Hct 22.1 L (34.0-46.0) % MCHC 29.8 L (31.0-37.0) g/dL RDW 21.7 H (11.5-15.5) % Chloride 110 H (98-107) mmol/L Carbon Dioxide (22-30) mmol/L BUN 22 H (7-17) mg/dL Glucose 24 L* (74-99) mg/dL POC Glucose (mg/dL) 34 L (75-99) mg/dL Total Protein 6.1 L (6.3-8.2) g/dL Albumin (3.5-5.0) g/dL Urine Glucose (UA) (Negative) Crossmatch 12/29/18 12/29/18 12/29/18 Range/Units 23:10 23:46 23:55 RBC 2.49 L (3.80-5.40) m/uL Hgb 6.7 L* (11.4-16.0) gm/dL Hct 22.3 L (34.0-46.0) % MCHC 30.3 L (31.0-37.0) g/dL RDW 20.7 H (11.5-15.5) % Chloride (98-107) mmol/L Carbon Dioxide (22-30) mmol/L BUN (7-17) mg/dL Glucose (74-99) mg/dL POC Glucose (mg/dL) 62 L (75-99) mg/dL Total Protein (6.3-8.2) g/dL Albumin (3.5-5.0) g/dL Urine Glucose (UA) (Negative) Crossmatch See Detail 12/30/18 12/30/18 12/30/18 Range/Units 01:23 03:09 04:24 RBC (3.80-5.40) m/uL Hgb (11.4-16.0) gm/dL Hct (34.0-46.0) % MCHC (31.0-37.0) g/dL RDW (11.5-15.5) % Chloride (98-107) mmol/L Carbon Dioxide (22-30) mmol/L BUN (7-17) mg/dL Glucose (74-99) mg/dL POC Glucose (mg/dL) 36 L 59 L 64 L (75-99) mg/dL Total Protein (6.3-8.2) g/dL Albumin (3.5-5.0) g/dL Urine Glucose (UA) (Negative) Crossmatch 12/30/18 12/30/18 12/30/18 Range/Units 04:58 09:06 09:30 RBC (3.80-5.40) m/uL Hgb (11.4-16.0) gm/dL Hct (34.0-46.0) % MCHC (31.0-37.0) g/dL RDW (11.5-15.5) % Chloride (98-107) mmol/L Carbon Dioxide (22-30) mmol/L BUN (7-17) mg/dL Glucose (74-99) mg/dL POC Glucose (mg/dL) 70 L 216 H (75-99) mg/dL Total Protein (6.3-8.2) g/dL Albumin (3.5-5.0) g/dL Urine Glucose (UA) 3+ H (Negative) Crossmatch 12/30/18 12/30/18 12/30/18 Range/Units 10:37 10:37 11:16 RBC 2.84 L (3.80-5.40) m/uL Hgb 7.6 L (11.4-16.0) gm/dL Hct 26.0 L (34.0-46.0) % MCHC 29.2 L (31.0-37.0) g/dL RDW 20.2 H (11.5-15.5) % Chloride 110 H (98-107) mmol/L Carbon Dioxide 20 L (22-30) mmol/L BUN 21 H (7-17) mg/dL Glucose 231 H (74-99) mg/dL POC Glucose (mg/dL) 214 H (75-99) mg/dL Total Protein 5.5 L (6.3-8.2) g/dL Albumin 3.2 L (3.5-5.0) g/dL Urine Glucose (UA) (Negative) Crossmatch 12/30/18 Range/Units 16:36 RBC (3.80-5.40) m/uL Hgb (11.4-16.0) gm/dL Hct (34.0-46.0) % MCHC (31.0-37.0) g/dL RDW (11.5-15.5) % Chloride (98-107) mmol/L Carbon Dioxide (22-30) mmol/L BUN (7-17) mg/dL Glucose (74-99) mg/dL POC Glucose (mg/dL) 249 H (75-99) mg/dL Total Protein (6.3-8.2) g/dL Albumin (3.5-5.0) g/dL Urine Glucose (UA) (Negative) Crossmatch Abdominal x-ray: report reviewed (Nonspecific abdomen x-ray) Assessment and Plan (1) Anemia due to blood loss Narrative/Plan: 68-year-old with multiple medical comorbidities who presented to the hospital due to episodes of hypoglycemia and was found to be anemic with a hemoglobin of 6.6. On review of medical record hemoglobin was 13.6 on 01/2018. On repeat blood draw hemoglobin found to be 6.7. Suspicion is for upper GI bleed in the setting of NSAID use and episode of melena. Prior colonoscopic evaluation in was negative. Current Visit: Yes Status: Acute Code(s): D50.0 - IRON DEFICIENCY ANEMIA SECONDARY TO BLOOD LOSS (CHRONIC) SNOMED Code(s): 050568911 (2) GI bleed Narrative/Plan: Patient reporting episodes of melena in the setting of NSAID use, suspicion is for upper GI bleed. Hemoglobin has been stable on repeat at 6.6 and 6.7. Current Visit: Yes Status: Acute Code(s): K92.2 - GASTROINTESTINAL HEMORRHAGE, UNSPECIFIED SNOMED Code(s): 24713021 (3) Melena Current Visit: Yes Status: Acute Code(s): K92.1 - MELENA SNOMED Code(s): 6128393 Plan: supportive care Okay for liquid diet, nothing by mouth after midnight X-ray abdomen ordered due to Complaints of abdominal pain and found to be negative Continue Protonix twice a day Plan for EGD tomorrow Prior colonoscopic report from 2017 reviewed Avoid NSAID medications Continue to monitor hemoglobin and transfuse as needed Thank you for allowing us to participate in the care of the patient we will continue to follow
[2018-12-30] MEDS: ATORVASTATIN 10 MG TAB PO SCH (20:15)
[2018-12-30] MEDS: FLUoxetine HCL 20 MG CAP PO SCH (20:15)
[2018-12-30] MEDS: LISINOPRIL 10 MG TAB PO SCH (20:15)
[2018-12-30] MEDS: MONTELUKAST 10 MG TAB PO SCH (20:15)
[2018-12-30] MEDS: FENOFIBRATE 160 MG TAB PO SCH (20:15)
[2018-12-30] MEDS: MORPHINE SULFATE ER 30 MG TABLET PO SCH (20:16)
[2018-12-30] MEDS: OXYBUTYNIN 10 MG TAB.ER.24 PO SCH (20:17)
[2018-12-30] MEDS: traZODone HCL 100 MG TAB PO SCH (20:17)
[2018-12-30 20:55] LABS: Glucose,Whole Blood 153 mg/dL (75-99)
[2018-12-30] MEDS: INSULIN ASPART (NovoLOG) 100 UNIT/ML VIAL SQ SCH (21:25)
[2018-12-31] MEDS: INSULIN ASPART (NovoLOG) 100 UNIT/ML VIAL SQ SCH ×4 (06:17→23:02)
[2018-12-31 06:18] LABS: Glucose,Whole Blood 123 mg/dL (75-99)
[2018-12-31] MEDS: HYDROcodone/APAP 10-325MG 1 EACH TAB PO PRN ×2 (06:21→14:51)
[2018-12-31] MEDS: MORPHINE SULFATE ER 30 MG TABLET PO SCH ×2 (09:24→17:44)
[2018-12-31 11:34] LABS: Glucose,Whole Blood 117 mg/dL (75-99)
[2018-12-31 12:32] LABS: Hemoglobin A1C 5.4 % (4.0-6.0)
[2018-12-31 12:32] LABS: Anisocytosis Slight; Basophils % (A) 1 %; Eosinophils # (A) 0.6 k/uL (0-0.7); Eosinophils % (A) 12 %; HGB 8.6 gm/dL (11.4-16.0); Hypochromasia Marked; Lymphocytes # (A) 1.4 k/uL (1.0-4.8); Lymphocytes % (A) 31 %; MCH 27.5 pg (25.0-35.0); MCHC 30.7 g/dL (31.0-37.0); MCV 89.8 fL (80.0-100.0); Monocytes # (A) 0.4 k/uL (0-1.0); Monocytes % (A) 9 %; Neutrophils % (A) 45 %; Platelet Count 275 k/uL (150-450); Poikilocytosis Marked; RBC 3.12 m/uL (3.80-5.40); RDW 19.5 % (11.5-15.5); WBC 4.5 k/uL (3.8-10.6)
[2018-12-31] MEDS ORDERED: IV FLUID CONTINUATION 300 ML IV ONE (13:01)
[2018-12-31] MEDS ORDERED: LIDOCAINE 1% INJ 10MG/ML (20 ML MDV) ONE (13:03)
[2018-12-31] MEDS ORDERED: PROPOFOL 10 MG/ML 20 ML VIAL IV ONE (13:03)
--- NOTE | 2018-12-31 13:24 | P.PCN ---
Date of Procedure: 12/31/18 Description of Procedure: BRIEF HISTORY: 68-year-old female with medical history significant for diabetes mellitus who presented to the hospital for investigation of episodes of hypoglycemia. The patient reports multiple episodes of hypoglycemia during the 24-48 hours prior to presentation. The patient has had associated weakness and confusion. On presentation to the hospital the patient was found to be anemic with a hemoglobin of 6.6. Stool testing for occult blood was negative. The patient reports that bowel movements have been regular prior to admission at her baseline of 3 nonbloody bowel movements daily. However the patient does report that approximately 1 month ago she had a melanotic bowel movement. She also states that she is taking Motrin twice daily. Prior investigation with endoscopy included a colonoscopy in 08/2017 for history of colonic polyps at which time the examination was negative. Patient's hemoglobin was initially 6.6 on presentation and found to be 6.7 on repeat blood draw. She reports that she was previously on Prevacid therapy however she is not taking any PPIs at this time as her insurance company will not cover them. . PROCEDURE PERFORMED: Esophagogastroduodenoscopy with biopsy. PREOPERATIVE DIAGNOSIS: Anemia of acute blood loss, melena. ESTIMATED BLOOD LOSS: Minimal. IV sedation per anesthesia. PROCEDURE: After informed consent was obtained, the patient was brought into the endoscopy unit. IV sedation was administered by Anesthesia under continuous monitoring. Initially the Olympus GIF-190 video endoscope was inserted into the mouth. Esophagus intubated without any difficulty. It was gradually advanced into the stomach and duodenum and carefully examined. The bulb and the second part of the duodenum appeared normal. The scope at this time was withdrawn to the stomach, adequately insufflated with air, and upon careful examination, mucosa of the cardia and the fundus appeared normal. Mild scattered erythema in a linear fashion was found in the antrum and body suggestive of mild gastritis with biopsies taken. 2 nonbleeding ulcers were found in the antrum of the stomach one measuring a centimeter in size and the other 3 mm in size, no high risk stigmata were found on the ulcers. Biopsies of the ulcers were taken. The scope was then withdrawn into the esophagus. The GE junction was located at 37 cm from the incisors. The esophagus appeared normal. There were no erosions or ulcerations seen and the patient tolerated the procedure well. IMPRESSION: 1. Antral ulcers, biopsied. 2. Mild gastritis antrum and body, biopsied. RECOMMENDATIONS: The findings of this examination were discussed with the patient and her family. Okay for full liquid diet, advance a GI soft tomorrow. Monitor hemoglobin and hematocrit and transfuse as needed. Continue twice daily PPI therapy. Avoid NSAID therapy. Follow up with gastroenterology after discharge for repeat EGD in 6-8 weeks to check for ulcer healing. Await pathology from biopsies. The patient is okay for discharge when otherwise medically stable..
[2018-12-31] MEDS: FLUoxetine HCL 20 MG CAP PO SCH ×2 (14:35→23:00)
[2018-12-31] MEDS: GABAPENTIN 300 MG CAP PO SCH ×3 (14:35→23:01)
[2018-12-31] MEDS: CYCLOBENZAPRINE 10 MG TAB PO SCH ×3 (14:35→23:00)
[2018-12-31] MEDS: LISINOPRIL 10 MG TAB PO SCH ×2 (14:35→23:00)
[2018-12-31] MEDS: OXYBUTYNIN 10 MG TAB.ER.24 PO SCH ×2 (14:36→23:22)
[2018-12-31] MEDS: PANTOPRAZOLE 40 MG/10 ML VIAL IVP SCH ×2 (14:37→23:02)
[2018-12-31] MEDS: FOLIC ACID 1 MG TAB PO SCH (14:37)
[2018-12-31] MEDS: amLODIPine 10 MG TAB PO SCH (14:48)
[2018-12-31] MEDS: ISOSORBIDE MONONITRATE ER 30 MG TAB.ER.24H PO SCH (14:49)
[2018-12-31] MEDS: BISOPROLOL 5 MG TAB PO SCH (14:59)
[2018-12-31 17:28] LABS: Glucose,Whole Blood 218 mg/dL (75-99)
[2018-12-31] MEDS: DULoxetine HCL 60 MG CAPSULE.DR PO SCH (17:43)
[2018-12-31 20:50] LABS: Glucose,Whole Blood 188 mg/dL (75-99)
[2018-12-31] MEDS: ATORVASTATIN 10 MG TAB PO SCH (22:59)
[2018-12-31] MEDS: MONTELUKAST 10 MG TAB PO SCH (23:00)
[2018-12-31] MEDS: FENOFIBRATE 160 MG TAB PO SCH (23:22)
[2018-12-31] MEDS: traZODone HCL 100 MG TAB PO SCH (23:22)
--- NOTE | 2019-01-01 01:24 | P.PN ---
Subjective Progress Note Date: 12/31/18 Principal diagnosis: Severe symptomatic anemia/GI bleed Persistent hypoglycemia 68-year-old female with medical history significant for diabetes mellitus who presented to the hospital for investigation of episodes of hypoglycemia. The patient reports multiple episodes of hypoglycemia during the 24-48 hours prior to presentation. The patient has had associated weakness and confusion. On presentation to the hospital the patient was found to be anemic with a hemoglobin of 6.6. Stool testing for occult blood was negative. The patient reports that bowel movements have been regular prior to admission at her baseline of 3 nonbloody bowel movements daily. However the patient does report that approximately 1 month ago she had a melanotic bowel movement. She also states that she is taking Motrin twice daily. Prior investigation with endoscopy included a colonoscopy in 08/2017 for history of colonic polyps at which time the examination was negative. Patient's hemoglobin was initially 6.6 on presentation and found to be 6.7 on repeat blood draw. She reports that she was previously on Prevacid therapy however she is not taking any PPIs at this time as her insurance company will not cover them. No nausea, vomiting, or coffee-ground emesis reported. 12/31/2018 patient is s/p EGD w/bx 1. Antral ulcers, biopsied. 2. Mild gastritis antrum and body, biopsied; Okay for full liquid diet, advance to soft tomorrow. Monitor hemoglobin and hematocrit and transfuse as needed. Continue twice daily PPI therapy. Avoid NSAID therapy. Follow up with gastroenterology after discharge for repeat EGD in 6-8 weeks to check for ulcer healing. Await pathology from biopsies; Poss dc in next 24-48 hrs if remains stable Objective - Vital Signs Vital signs: Vital Signs Temp 98.5 F 12/31/18 09:18 Pulse 53 L 12/31/18 09:18 Resp 18 12/31/18 09:18 BP 153/67 12/31/18 09:18 Pulse Ox 96 12/31/18 09:18 Intake & Output 12/30/18 12/31/18 12/31/18 18:59 06:59 18:59 Intake Total 900 200 Output Total 250 250 Balance 650 200 -250 Weight 74.1 kg 71.1 kg Intake: Intake, IV Titration 300 Amount D5-0.45% NaCl with KCl 300 20Meq/l 1,000 ml @ 150 mls/hr IV .Q6H40M [facility] Rx# :[id number] Oral 600 200 Output: Urine 250 250 Other: Voiding Method Toilet # Voids 1 - Exam PHYSICAL EXAMINATION: GENERAL: The patient is alert and oriented x3, not in any acute distress. Well developed, well nourished. HEENT: Pupils are round and equally reacting to light. EOMI. No scleral icterus. No conjunctival pallor. Normocephalic, atraumatic. No pharyngeal erythema. No thyromegaly. CARDIOVASCULAR: S1 and S2 present. No murmurs, rubs, or gallops. PULMONARY: Chest is clear to auscultation, no wheezing or crackles. ABDOMEN: Soft, nontender, nondistended, normoactive bowel sounds. No palpable organomegaly. MUSCULOSKELETAL: No joint swelling or deformity. EXTREMITIES: No cyanosis, clubbing, or pedal edema. NEUROLOGICAL: Gross neurological examination did not reveal any focal deficits. SKIN: No rashes. - Labs CBC & Chem 7: 12/31/18 11:44 12/30/18 10:37 Labs: Abnormal Lab Results - Last 24 Hours (Table) 12/30/18 12/30/18 12/30/18 Range/Units 10:37 10:37 11:16 RBC 2.84 L (3.80-5.40) m/uL Hgb 7.6 L (11.4-16.0) gm/dL Hct 26.0 L (34.0-46.0) % MCHC 29.2 L (31.0-37.0) g/dL RDW 20.2 H (11.5-15.5) % Chloride 110 H (98-107) mmol/L Carbon Dioxide 20 L (22-30) mmol/L BUN 21 H (7-17) mg/dL Glucose 231 H (74-99) mg/dL POC Glucose (mg/dL) 214 H (75-99) mg/dL Total Protein 5.5 L (6.3-8.2) g/dL Albumin 3.2 L (3.5-5.0) g/dL 12/30/18 12/30/18 12/31/18 Range/Units 16:36 20:43 06:16 RBC (3.80-5.40) m/uL Hgb (11.4-16.0) gm/dL Hct (34.0-46.0) % MCHC (31.0-37.0) g/dL RDW (11.5-15.5) % Chloride (98-107) mmol/L Carbon Dioxide (22-30) mmol/L BUN (7-17) mg/dL Glucose (74-99) mg/dL POC Glucose (mg/dL) 249 H 153 H 123 H (75-99) mg/dL Total Protein (6.3-8.2) g/dL Albumin (3.5-5.0) g/dL Assessment and Plan Assessment: 1. Persistent hypoglycemia - Start patient on IV fluids D5 half-normal saline - We will hold off on oral hypoglycemic agents and monitor Accu-Cheks every before meals and at bedtime with insulin sliding scale 2. Severe symptomatic anemia 3. Hypertension 4. Hyperlipidemia; Lipitor 10 mg by mouth daily at bedtime 5. Diabetes mellitus 2 - Hold off on oral hypoglycemic agents - Monitor Accu-Cheks before meals and at bedtime with insulin sliding scale 6. CVA/TIA; patient takes aspirin and Eliquis; hold due to GI bleed 7. Asthma; not in exacerbation 8. Coronary artery disease; stable on these of prolonged 10 mg daily and Imdur 60 mg daily 9. DVT prophylaxis; SCDs only secondary to GI. CODE STATUS; full code Time with Patient: Greater than 30
[2019-01-01 06:59] LABS: Glucose,Whole Blood 130 mg/dL (75-99)
[2019-01-01 07:26] VITALS: PULSE 60
[2019-01-01] MEDS: INSULIN ASPART (NovoLOG) 100 UNIT/ML VIAL SQ SCH ×2 (08:16→12:01)
[2019-01-01] MEDS: GABAPENTIN 300 MG CAP PO SCH (09:57)
[2019-01-01] MEDS: FLUoxetine HCL 20 MG CAP PO SCH (09:57)
[2019-01-01] MEDS: amLODIPine 10 MG TAB PO SCH (09:57)
[2019-01-01] MEDS: DULoxetine HCL 60 MG CAPSULE.DR PO SCH (09:57)
[2019-01-01] MEDS: BISOPROLOL 5 MG TAB PO SCH (09:57)
[2019-01-01] MEDS: CYCLOBENZAPRINE 10 MG TAB PO SCH (09:57)
[2019-01-01] MEDS: ISOSORBIDE MONONITRATE ER 30 MG TAB.ER.24H PO SCH (09:58)
[2019-01-01] MEDS: LISINOPRIL 10 MG TAB PO SCH (09:58)
[2019-01-01] MEDS: OXYBUTYNIN 10 MG TAB.ER.24 PO SCH (09:58)
[2019-01-01] MEDS: MORPHINE SULFATE ER 30 MG TABLET PO SCH (09:58)
[2019-01-01] MEDS: PANTOPRAZOLE 40 MG/10 ML VIAL IVP SCH (10:33)
[2019-01-01 11:05] LABS: Anisocytosis Slight; Basophils % (A) 1 %; Eosinophils # (A) 0.4 k/uL (0-0.7); Eosinophils % (A) 9 %; HGB 8.8 gm/dL (11.4-16.0); Hypochromasia Marked; Lymphocytes # (A) 1.5 k/uL (1.0-4.8); Lymphocytes % (A) 33 %; MCH 26.3 pg (25.0-35.0); MCHC 29.3 g/dL (31.0-37.0); Mean Platelet Volume 7.8; Monocytes # (A) 0.3 k/uL (0-1.0); Monocytes % (A) 6 %; Neutrophils # (A) 2.2 k/uL (1.3-7.7); Neutrophils % (A) 48 %; Platelet Count 298 k/uL (150-450); Poikilocytosis Marked; RBC 3.33 m/uL (3.80-5.40); RDW 19.3 % (11.5-15.5); WBC 4.6 k/uL (3.8-10.6)
[2019-01-01 11:06] LABS: Glucose,Whole Blood 105 mg/dL (75-99)
[2019-01-01 11:08] LABS: Anion Gap 7 mmol/L; Blood Urea Nitrogen 15 mg/dL (7-17); Calcium 9.2 mg/dL (8.4-10.2); Carbon Dioxide 25 mmol/L (22-30); Chloride 111 mmol/L (98-107); Glucose 131 mg/dL (74-99); Potassium 4.2 mmol/L (3.5-5.1); Sodium 143 mmol/L (137-145)
--- NOTE | 2019-01-01 11:36 | P.PN ---
Subjective Progress Note Date: 01/01/19 Principal diagnosis: Anemia Status post EGD findings of antral ulcers mild gastritis biopsies pending. Feels well. Tolerating full liquids. Denies hematemesis hematochezia melena. Objective - Vital Signs Vital signs: Vital Signs Temp 97.9 F 01/01/19 07:25 Pulse 60 01/01/19 07:25 Resp 14 01/01/19 07:25 BP 111/68 01/01/19 07:25 Pulse Ox 93 L 01/01/19 07:25 Intake & Output 12/31/18 01/01/19 01/01/19 18:59 06:59 18:59 Intake Total 150 Output Total 250 Balance -100 Intake: IV 150 Output: Urine 250 Other: Voiding Method Toilet # Voids 2 1 - Exam General appearance: The patient is alert, oriented, in no acute distress. HET: Head is normocephalic and atraumatic. Pupils are equal and reactive. Oropharynx is clear without lesions. Neck: Supple without lymphadenopathy. Trachea midline. Heart: S1 S2. Regular rate and rhythm. Lungs: No crackles or wheezes are heard. Abdomen: Soft, nontender, nondistended with bowel sounds. No peritoneal signs. No palpable organomegaly or masses. Extremities: Normal skin color and turgor. No cyanosis, rash, ulceration, clubbing, or edema. Radial and pedal pulses are 2/4 bilaterally. Neurological: No focal deficits. Strength and sensation are grossly intact. - Labs CBC & Chem 7: 01/01/19 10:30 01/01/19 10:30 Labs: Abnormal Lab Results - Last 24 Hours (Table) 12/31/18 12/31/18 12/31/18 Range/Units 11:44 17:27 20:48 RBC 3.12 L (3.80-5.40) m/uL Hgb 8.6 L (11.4-16.0) gm/dL Hct 28.0 L (34.0-46.0) % MCHC 30.7 L (31.0-37.0) g/dL RDW 19.5 H (11.5-15.5) % Chloride (98-107) mmol/L Glucose (74-99) mg/dL POC Glucose (mg/dL) 218 H 188 H (75-99) mg/dL 01/01/19 01/01/19 01/01/19 Range/Units 06:53 10:30 10:30 RBC 3.33 L (3.80-5.40) m/uL Hgb 8.8 L (11.4-16.0) gm/dL Hct 30.0 L (34.0-46.0) % MCHC 29.3 L (31.0-37.0) g/dL RDW 19.3 H (11.5-15.5) % Chloride 111 H (98-107) mmol/L Glucose 131 H (74-99) mg/dL POC Glucose (mg/dL) 130 H (75-99) mg/dL 01/01/19 Range/Units 11:04 RBC (3.80-5.40) m/uL Hgb (11.4-16.0) gm/dL Hct (34.0-46.0) % MCHC (31.0-37.0) g/dL RDW (11.5-15.5) % Chloride (98-107) mmol/L Glucose (74-99) mg/dL POC Glucose (mg/dL) 105 H (75-99) mg/dL Assessment and Plan (1) Antral ulcer Current Visit: Yes Status: Acute Code(s): K25.9 - GASTRIC ULCER, UNSP ACUTE OR CHRONIC, W/O HEMOR OR PERF SNOMED Code(s): 85155038 (2) Anemia due to blood loss Current Visit: Yes Status: Acute Code(s): D50.0 - IRON DEFICIENCY ANEMIA SECONDARY TO BLOOD LOSS (CHRONIC) SNOMED Code(s): 848950502 (3) GI bleed Current Visit: Yes Status: Acute Code(s): K92.2 - GASTROINTESTINAL HEMORRHAGE, UNSPECIFIED SNOMED Code(s): 16314816 (4) Melena Current Visit: Yes Status: Acute Code(s): K92.1 - MELENA SNOMED Code(s): 2629642 Plan: 1. Avoid NSAIDs. Protonix 40 mg twice daily. Soft GI diet as tolerated. Return to office in 2-3 weeks repeat EGD in 6-8 weeks. Assessment and plan a care discussed with Dr. Weaver
[2019-01-01 12:38] VITALS: BP 122/77; RESP 16; TEMP 97.8
[2019-01-01] MEDS: HYDROcodone/APAP 10-325MG 1 EACH TAB PO PRN (13:05)
[2019-01-01] MEDS: FOLIC ACID 1 MG TAB PO SCH (13:05)
--- NOTE | 2019-01-01 15:46 | CDI ---
Documentation Clarification Form Date: 01/01/2019 3:18:13 PM From: Michelle Thapa RN CCDS Admit Date: 12/30/2018 1:21:00 AM Patient Name: Yoanna Kauffman Visit Number: [id number] Discharge Date: ATTENTION: The Clinical Documentation Specialists (CDI) and [facility] Coding Staff appreciate your assistance in clarifying documentation. Please respond to the clarification below the line at the bottom and electronically sign. The CDI & [facility] Coding staff will review the response and follow-up if needed. Please note: Queries are made part of the Legal Health Record. If you have any questions, please contact the author of this message via ITS. Dr. Cristian Weaver Per the Impressions in your Operative report Antral Ulcer is documented. Patient history/risk factors: 68 year old female presents to the ED with confusion. Medical history of DM, Coronary Artery Disease, CVA/TIA, HTN, Lupus , RA, Clinical Indicators: EGD/colonoscopy performed and findings: Two non bleeding ulcers were found in the antrum of the stomach one measuring a centimeter in size and the other 3mm in size, Labs: Hgb 6.7, Hct 22.3, Vital Signs: 148/77 80 98.0 16 97% ra Other Clinical Indicators: Treatment: Blood Transfusion one unit Medication: PPI, In your professional opinion, can you please clarify the Aquity of the Antral Ulcers and cause if known? * Acute Antral Ulcer secondary to NSAID use and not taking any PPIs * Chronic Antral Ulcer secondary to NSAID use and not taking any PPIs * Other, please specify * Unable to determine (Last Revision: August 2017) MTDD
--- NOTE | 2019-01-01 16:06 | CDI ---
Metabolic encephalopathy sec to hypoglycemia Documentation Clarification Form Date: 01/01/2019 3:48:00 PM From: Michelle Thapa RN CCDS Admit Date: 12/30/2018 1:21:00 AM Patient Name: Yoanna Kauffman Visit Number: [id number] Discharge Date: ATTENTION: The Clinical Documentation Specialists (CDI) and [facility] Coding Staff appreciate your assistance in clarifying documentation. Please respond to the clarification below the line at the bottom and electronically sign. The CDI & [facility] Coding staff will review the response and follow-up if needed. Please note: Queries are made part of the Legal Health Record. If you have any questions, please contact the author of this message via ITS. Dr. Rich Brandon Confusion is documented in the H & P and your Progress note dated 12/31/2018 History/Risk Factors:68 year old female presents to the ED for Hypoglycemia Clinical Indicators: Per the H & P Patient had been monitoring blood sugars over the past 2 days.Has had several low readings as low as in the 20s and 30s over the past 24-48 hours. Blood glucose was checked this morning at 7 AM, it was recorded as 24, she's had hypoglycemia throughout the day today. Labs: Glucose 12/29/2018 glucose 24, 62, 12/30/2018 glucose 75, 88, Treatment: D50 one amp iv x2, 12/29/2018 D50 one amp iv 12/30/2018 , D% 1/2Ns Kcl 20meq ivfl 150cc/hr In your professional opinion, please clarify the etiology of the Confusion, if known. Metabolic Encephalopathy secondary to Hypoglcemia Other condition (please specify) Unable to determine (Last Revision: February 2018) Documentation Clarification Form Date: 01/01/2019 3:48:00 PM From: Michelle Thapa RN CCDS Admit Date: 12/30/2018 1:21:00 AM Patient Name: Yoanna Kauffman Visit Number: [id number] Discharge Date: ATTENTION: The Clinical Documentation Specialists (CDI) and [facility] Coding Staff appreciate your assistance in clarifying documentation. Please respond to the clarification below the line at the bottom and electronically sign. The CDI & [facility] Coding staff will review the response and follow-up if needed. Please note: Queries are made part of the Legal Health Record. If you have any questions, please contact the author of this message via ITS. Dr. Rich Brandon Confusion is documented in the H & P and your Progress note dated 12/31/2018 History/Risk Factors:68 year old female presents to the ED for Hypoglycemia Clinical Indicators: Per the H & P Patient had been monitoring blood sugars over the past 2 days.Has had several low readings as low as in the 20s and 30s over the past 24-48 hours. Blood glucose was checked this morning at 7 AM, it was recorded as 24, she's had hypoglycemia throughout the day today. Labs: Glucose 12/29/2018 glucose 24, 62, 12/30/2018 glucose 75, 88, Treatment: D50 one amp iv x2, 12/29/2018 D50 one amp iv 12/30/2018 , D% 1/2Ns Kcl 20meq ivfl 150cc/hr In your professional opinion, please clarify the etiology of the Confusion, if known. * Metabolic Encephalopathy secondary to Hypoglcemia * Other condition (please specify) * Unable to determine (Last Revision: February 2018) MTDD
[2019-01-01] MEDS ORDERED: PANTOPRAZOLE 40 MG TABLET PO SCH (21:00)
--- NOTE | 2019-01-02 08:46 | CDI ---
metabolic encephalopathy sec to hypoglycemia Documentation Clarification Form Date: 01/01/2019 3:48:00 PM From: Michelle Thapa RN CCDS Admit Date: 12/30/2018 1:21:00 AM Patient Name: Yoanna Kauffman Visit Number: [id number] Discharge Date: 01/01/2019 3:50:00 PM ATTENTION: The Clinical Documentation Specialists (CDI) and [facility] Coding Staff appreciate your assistance in clarifying documentation. Please respond to the clarification below the line at the bottom and electronically sign. The CDI & [facility] Coding staff will review the response and follow-up if needed. Please note: Queries are made part of the Legal Health Record. If you have any questions, please contact the author of this message via ITS. Dr. Rich Brandon Confusion is documented in the H & P and your Progress note dated 12/31/2018 History/Risk Factors:68 year old female presents to the ED for Hypoglycemia Clinical Indicators: Per the H & P Patient had been monitoring blood sugars over the past 2 days. Has had several low readings as low as in the 20s and 30s over the past 24-48 hours. Blood glucose was checked this morning at 7 AM, it was recorded as 24, she's had hypoglycemia throughout the day today. Labs: Glucose 12/29/2018 glucose 24, 62, 12/30/2018 glucose 75, 88, Treatment: D50 one amp iv x2, 12/29/2018 D50 one amp iv 12/30/2018 , D% 1/2Ns Kcl 20meq ivfl 150cc/hr In your professional opinion, please clarify the etiology of the Confusion, if known. * Metabolic Encephalopathy secondary to Hypoglycemia * Other condition (please specify) * Unable to determine (Last Revision: February 2018) MTDD
--- NOTE | 2019-01-02 23:13 | P.DS ---
Providers Date of admission: 12/30/18 01:21 Expected date of discharge: 01/01/19 Attending physician: Hugh Hampton Consults: 12/30/18 01:21 Consult Physician Routine Consulting Provider: Rafael Espinosa Consult Reason/Comments: Anemia, concern for GI bleed Do you want consulting provider notified?: Yes Primary care physician: [facility] Course: Final Diagnoses: -Diabetes mellitus type 2 with Hypoglycemia, resolved -Symptomatic anemia, status post EGD reporting antral ulcers and mild gastritis -CVA/TIA, Eliquis and aspirin resumed as per GI -Chronic intermittent asthma, no exacerbation -CAD -Hypertension -Hyperlipidemia -Metabolic encephalopathy secondary to hypoglycemia, present on admission, resolved. Hospital course:68-year-old female with medical history significant for diabetes mellitus who presented to the hospital for investigation of episodes of hypoglycemia. The patient reports multiple episodes of hypoglycemia during the 24-48 hours prior to presentation. The patient has had associated weakness and confusion. On presentation to the hospital the patient was found to be anemic with a hemoglobin of 6.6. Stool testing for occult blood was negative. The patient reports that bowel movements have been regular prior to admission at her baseline of 3 nonbloody bowel movements daily. However the patient does report that approximately 1 month ago she had a melanotic bowel movement. She also states that she is taking Motrin twice daily. Prior investigation with endoscopy included a colonoscopy in 08/2017 for history of colonic polyps at which time the examination was negative. Patient's hemoglobin was initially 6.6 on presentation and found to be 6.7 on repeat blood draw. She reports that she was previously on Prevacid therapy however she is not taking any PPIs at this time as her insurance company will not cover them. No nausea, vomiting, or coffee-ground emesis reported. Evaluated by GI, underwent EGD with biopsies. Endoscopy reported antral ulcers , mild gastritis. Maintained on PPI twice a day. Significant clinical improvement. Repeat EGD in 6-8 weeks to check for ulcer healing. Eliquis and aspirin resumed as per GI. Cleared by GI for discharge. Patient is being discharged home in a stable condition with guarded prognosis. EXAM: GENERAL: Alert and oriented x3, no acute distress. CARDIOVASCULAR: S1 and S2 present. No murmurs, rubs, or gallops. PULMONARY: Chest is clear to auscultation, no wheezing or crackles. ABDOMEN: Soft, nontender, nondistended, normoactive bowel sounds. No palpable organomegaly NEUROLOGICAL: Gross neurological examination did not reveal any focal deficits. The impression and plan of care has been dictated as directed. : I performed a history and examination of this patient, discussed the same with the dictator. I agree with the dictator's note ,documented as a scribe. Any additional findings or plans will be noted. Time taken: 35 minutes. Patient Condition at Discharge: Stable Plan - Discharge Summary Discharge Rx Participant: No New Discharge Prescriptions: Continue Temazepam [Restoril] 30 mg PO HS PRN PRN Reason: Insomnia Lansoprazole [Prevacid] 30 mg PO BID Chlorzoxazone [Parafon Forte Dsc] 1,000 mg PO TID PRN PRN Reason: Muscle Spasm Gabapentin [Neurontin] 600 mg PO TID Isosorbide Mononitrate ER [Imdur] 30 mg PO QAM Oxybutynin Chloride [Ditropan XL] 10 mg PO BID Lovastatin [Mevacor] 20 mg PO HS Montelukast [Singulair] 10 mg PO HS Fenofibrate,Micronized [Fenofibrate] 200 mg PO HS Bisoprolol Fumarate [Zebeta] 10 mg PO QAM traZODone HCL [Desyrel] 100 - 200 mg PO HS glipiZIDE [Glucotrol XL] 5 mg PO DAILY HYDROcodone/APAP 10-325MG [[place] 10-325] 1 tab PO BID Folic Acid 1 mg PO DAILY FLUoxetine HCL [PROzac] 20 mg PO BID amLODIPine BESYLATE [Amlodipine Besylate] 10 mg PO QAM Alendronate Sodium 70 mg PO EDMONDSON Albuterol Nebulized [Ventolin Nebulized] 2.5 mg INHALATION RT-QID PRN PRN Reason: Shortness Of Breath DULoxetine HCL [Cymbalta] 60 mg PO DAILY Lisinopril [Zestril] 10 mg PO BID Adalimumab [Humira Pen] 40 mg SQ Q14D Azelastine HCl [Astepro] 2 spray EA NOSTRIL BID PRN PRN Reason: Sinus Symptoms Ergocalciferol [Vitamin D2 (DRISDOL)] 50,000 unit PO EDMONDSON valACYclovir HCL [Valtrex] 1,000 mg PO BID PRN PRN Reason: Cold Sores Cyclobenzaprine [Flexeril] 10 mg PO TID #15 tab Morphine Sulfate ER [Ms Contin] 30 mg PO Q12HR Methotrexate 25mg/Iml 0.8 ml SQ WEEKLY Discontinued Ibuprofen [Motrin] 800 mg PO Q6H PRN PRN Reason: Pain No Action Apixaban [Eliquis] 5 mg PO BID Discharge Medication List Bisoprolol Fumarate [Zebeta] 10 mg PO QAM 05/12/14 [History] Chlorzoxazone [Parafon Forte Dsc] 1,000 mg PO TID PRN 05/12/14 [History] Fenofibrate,Micronized [Fenofibrate] 200 mg PO HS 05/12/14 [History] Gabapentin [Neurontin] 600 mg PO TID 05/12/14 [History] Isosorbide Mononitrate ER [Imdur] 30 mg PO QAM 05/12/14 [History] Lansoprazole [Prevacid] 30 mg PO BID 05/12/14 [History] Lovastatin [Mevacor] 20 mg PO HS 05/12/14 [History] Montelukast [Singulair] 10 mg PO HS 05/12/14 [History] Oxybutynin Chloride [Ditropan XL] 10 mg PO BID 05/12/14 [History] Temazepam [Restoril] 30 mg PO HS PRN 05/12/14 [History] Albuterol Nebulized [Ventolin Nebulized] 2.5 mg INHALATION RT-QID PRN 02/23/16 [ History] Alendronate Sodium 70 mg PO EDMONDSON 02/23/16 [History] FLUoxetine HCL [PROzac] 20 mg PO BID 02/23/16 [History] Folic Acid 1 mg PO DAILY 02/23/16 [History] HYDROcodone/APAP 10-325MG [[place] 10-325] 1 tab PO BID 02/23/16 [History] amLODIPine BESYLATE [Amlodipine Besylate] 10 mg PO QAM 02/23/16 [History] glipiZIDE [Glucotrol XL] 5 mg PO DAILY 02/23/16 [History] traZODone HCL [Desyrel] 100 - 200 mg PO HS 02/23/16 [History] DULoxetine HCL [Cymbalta] 60 mg PO DAILY 08/09/16 [History] Lisinopril [Zestril] 10 mg PO BID 04/21/17 [History] Adalimumab [Humira Pen] 40 mg SQ Q14D 06/23/17 [History] Azelastine HCl [Astepro] 2 spray EA NOSTRIL BID PRN 06/23/17 [History] Cyclobenzaprine [Flexeril] 10 mg PO TID #15 tab 06/23/17 [Rx] Ergocalciferol [Vitamin D2 (DRISDOL)] 50,000 unit PO EDMONDSON 06/23/17 [History] valACYclovir HCL [Valtrex] 1,000 mg PO BID PRN 06/23/17 [History] Apixaban [Eliquis] 5 mg PO BID 12/29/18 [History] Morphine Sulfate ER [Ms Contin] 30 mg PO Q12HR 12/29/18 [History] Methotrexate 25mg/Iml 0.8 ml SQ WEEKLY 12/30/18 [History] Follow up Appointment(s)/Referral(s): Elida Baltazar MD [Primary Care Provider] - 01/08/19 11:20 am (Monday) Cristian Weaver MD [STAFF PHYSICIAN] - 01/21/19 12:00 pm Ambulatory/Diagnostic Orders: Complete Blood Count w/diff [LAB.AMB] Time Frame: 3 Days, Location: None Selected Patient Instructions/Handouts: Hypoglycemia in a Person with Diabetes (DC), Upper Endoscopy (DC) Activity/Diet/Wound Care/Special Instructions: Ok to resume baby aspirin and Eliquis starting tomorrow 01/02/2019 Discharge Disposition: HOME SELF-CARE
== END 2019-01-01 15:50 | disposition home or self-care (01) | DRG 377 ==
LOC: EC 22:37 → 3SCARD 12-30 01:21 → 3NMEDONC 12-31 13:02
PROVIDERS: ADMIT Hospitalist; ATTEND Hospitalist
PROC: 30233N1 Transfusion of Nonautologous Red Blood Cells into Peripheral Vein, Percutaneous Approach (ICD-10-PCS; 2018-12-30)
PROC: 0DB68ZX Excision of Stomach, Via Natural or Artificial Opening Endoscopic, Diagnostic (ICD-10-PCS; principal; 2018-12-31 11:00)
DX: K29.71 Gastritis, unspecified, with bleeding (principal); G93.41 Metabolic encephalopathy; D62 Acute posthemorrhagic anemia; K25.4 Chronic or unspecified gastric ulcer with hemorrhage; E11.649 Type 2 diabetes mellitus with hypoglycemia without coma; J45.20 Mild intermittent asthma, uncomplicated; E78.5 Hyperlipidemia, unspecified; I25.10 Atherosclerotic heart disease of native coronary artery without angina pectoris; I10 Essential (primary) hypertension; F32.9 Major depressive disorder, single episode, unspecified; M06.9 Rheumatoid arthritis, unspecified; M79.7 Fibromyalgia; Z96.649 Presence of unspecified artificial hip joint; Z86.010 Personal history of colon polyps; Z86.73 Personal history of transient ischemic attack (TIA), and cerebral infarction without residual deficits; Z79.01 Long term (current) use of anticoagulants; Z79.82 Long term (current) use of aspirin; Z79.84 Long term (current) use of oral hypoglycemic drugs; Z79.899 Other long term (current) drug therapy; Z80.1 Family history of malignant neoplasm of trachea, bronchus and lung; Z82.49 Family history of ischemic heart disease and other diseases of the circulatory system; Z90.710 Acquired absence of both cervix and uterus
CPT/HCPCS: 36415; 43239; 74018; 80048; 80053; 81003; 82272; 83036; 85025; 85610; 85730; 86850; 86900; 86901; 86920; 88305; 96374; 96375; 96376; 99291

== ENCOUNTER → 2019-01-07 | Outpatient (CLI) | payer MEDICARE ==
[2019-01-07 16:44] LABS: Anisocytosis Moderate; Basophils # (A) 0.1 k/uL (0-0.2); Basophils % (A) 1 %; Eosinophils # (A) 0.4 k/uL (0-0.7); Eosinophils % (A) 6 %; HCT 26.2 % (34.0-46.0); HGB 7.7 gm/dL (11.4-16.0); Hypochromasia Marked; Lymphocytes # (A) 2.1 k/uL (1.0-4.8); Lymphocytes % (A) 34 %; MCH 25.7 pg (25.0-35.0); MCHC 29.4 g/dL (31.0-37.0); MCV 87.6 fL (80.0-100.0); Mean Platelet Volume 6.9; Monocytes # (A) 0.6 k/uL (0-1.0); Monocytes % (A) 9 %; Neutrophils # (A) 2.9 k/uL (1.3-7.7); Neutrophils % (A) 46 %; Platelet Count 373 k/uL (150-450); Poikilocytosis Moderate; RBC 2.99 m/uL (3.80-5.40); RDW 20.2 % (11.5-15.5); WBC 6.2 k/uL (3.8-10.6)
== END | disposition home or self-care (01) ==
LOC: LABWHC1 16:02
PROVIDERS: ATTEND Nurse Practitioner
DX: K29.70 Gastritis, unspecified, without bleeding (principal); K25.9 Gastric ulcer, unspecified as acute or chronic, without hemorrhage or perforation
CPT/HCPCS: 36415; 85025

== ENCOUNTER → 2019-02-15 | Outpatient (CLI) | payer MEDICARE ==
[2019-02-15 09:50] LABS: Anisocytosis Moderate; Basophils % (A) 1 %; Eosinophils # (A) 0.3 k/uL (0-0.7); Eosinophils % (A) 8 %; HCT 35.1 % (34.0-46.0); HGB 10.1 gm/dL (11.4-16.0); Hypochromasia Marked; Lymphocytes # (A) 0.9 k/uL (1.0-4.8); Lymphocytes % (A) 28 %; MCH 25.9 pg (25.0-35.0); MCHC 28.8 g/dL (31.0-37.0); MCV 89.9 fL (80.0-100.0); Macrocytosis Slight; Mean Platelet Volume 7.2; Microcytosis Slight; Monocytes # (A) 0.2 k/uL (0-1.0); Monocytes % (A) 5 %; Neutrophils # (A) 1.8 k/uL (1.3-7.7); Neutrophils % (A) 56 %; Platelet Count 232 k/uL (150-450); RBC 3.91 m/uL (3.80-5.40); RDW 23.2 % (11.5-15.5); WBC 3.3 k/uL (3.8-10.6)
== END ==
LOC: LABWHC1 02-12 11:40
PROVIDERS: ATTEND Internal Medicine
DX: D50.9 Iron deficiency anemia, unspecified (principal)
CPT/HCPCS: 36415; 85025

== ENCOUNTER 2019-03-07 08:47 | Day surgery (SDC) | payer MEDICARE ==
[2019-03-07 09:30] VITALS: RESP 16; TEMP 97.8
[2019-03-07] MEDS ORDERED: LACTATED RINGERS 1,000 ML IV ONE (09:30)
[2019-03-07] MEDS ORDERED: LIDOCAINE 1% 20 ML VIAL (10MG/ML) FOR IV START INTRADERMA ONE (09:30)
[2019-03-07 09:42] LABS: Glucose,Whole Blood 101 mg/dL (75-99)
[2019-03-07] MEDS ORDERED: fentaNYL (PF) 50 MCG/ML 2 ML AMP ONE (10:12)
[2019-03-07] MEDS ORDERED: PROPOFOL 10 MG/ML 20 ML VIAL IV ONE (10:12)
[2019-03-07] MEDS ORDERED: MIDAZOLAM 2 MG/2 ML VIAL ONE (10:12)
--- NOTE | 2019-03-07 11:02 | P.PCN ---
Date of Procedure: 03/07/19 Description of Procedure: Brief history: 69-year-old female with medical history significant for diabetes mellitus who presented to the hospital for investigation of episodes of hypoglycemia. The patient reports multiple episodes of hypoglycemia during the 24-48 hours prior to presentation. On presentation to the hospital the patient was found to be anemic with a hemoglobin of 6.6. Stool testing for occult blood was negative. She also states that she is taking Motrin twice daily. Prior investigation with endoscopy included a colonoscopy in 08/2017 for history of colonic polyps at which time the examination was negative. Patient's hemoglobin was initially 6.6 on presentation and found to be 6.7 on repeat blood draw. She reports that she was previously on Prevacid therapy however she is not taking any PPIs at this time as her insurance company will not cover them. At that time the patient was taken for EGD which was significant for antral ulcers and mild gastritis with negative biopsies. Currently the patient presents back for evaluation of iron deficiency anemia, ulcer healing as well as complaints of dysphagia. Procedure performed: Esophagogastroduodenoscopy Colonoscopy Estimated blood loss: Minimal. Preoperative diagnosis: Iron deficiency anemia, history of ulcers, esophageal dysphagia Anesthesia: MAC Procedure: After informed consent was obtained from the patient was brought into the endoscopy unit and IV sedation was administered by anesthesia under continuous monitoring. Initially upper endoscopy was done. The Olympus GF 190 video endoscope was inserted inserted into the mouth and esophagus intubated without any difficulty and was gradually advanced into the stomach and duodenum and carefully examined. The bulb and second part of the duodenum appeared normal. The scope was then withdrawn into the stomach adequately insufflated with air and upon careful examination the antrum and body, cardia and fundus appeared grossly normal, previously seen antral ulcers were healing with antral biopsies taken. The scope was then withdrawn into the esophagus. The GE junction was located at 38 cm to the incisors, with biopsies taken at the GE junction. Mid esophageal biopsies also taken given reports of dysphagia.. It appeared regular with no erythema erosions or ulcerations. Rest of the esophagus appeared normal. Patient tolerated the procedure well. At this time the patient continued to remain sedation. Initial digital rectal examination was normal. Olympus CF 190 video colonoscope was then inserted into the rectum and gradually advanced to the cecum without any difficulty. Careful examination was performed as the scope was gradually being withdrawn. The prep was excellent. The cecum, ascending colon, transverse colon, descending colon, sigmoid colon and rectum appeared normal. Retroflexion was performed in the rectum and no lesions were noted, mild internal hemorrhoids noted. Patient tolerated the procedure well. Impression: 1. Healing antral ulcers, biopsied. GE junction biopsies. Mid esophageal biopsies. 2. Mild internal hemorrhoids. Recommendations: Findings of this examination were discussed with the patient. Would continue PPI twice daily. Continue to monitor hemoglobin, continue iron supplementation. Await pathology from biopsies. Avoid NSAID medications. Follow-up in the gastroenterology clinic as previously scheduled. Consideration for video capsule endoscopy for further evaluation of anemia.
[2019-03-07 11:21] VITALS: BP 176/81; PULSE 57
== END 2019-03-07 11:49 | disposition home or self-care (01) ==
LOC: ORWHC2ENDO 08:47
PROVIDERS: ATTEND Internal Medicine
DX: K25.9 Gastric ulcer, unspecified as acute or chronic, without hemorrhage or perforation (principal); K29.70 Gastritis, unspecified, without bleeding; D50.9 Iron deficiency anemia, unspecified; E11.9 Type 2 diabetes mellitus without complications; K64.8 Other hemorrhoids; I25.2 Old myocardial infarction; I10 Essential (primary) hypertension; E78.5 Hyperlipidemia, unspecified; J44.9 Chronic obstructive pulmonary disease, unspecified; M06.9 Rheumatoid arthritis, unspecified; M19.90 Unspecified osteoarthritis, unspecified site; M79.7 Fibromyalgia; M32.9 Systemic lupus erythematosus, unspecified; M81.0 Age-related osteoporosis without current pathological fracture; Z79.01 Long term (current) use of anticoagulants; Z79.83 Long term (current) use of bisphosphonates; Z86.010 Personal history of colon polyps; Z88.0 Allergy status to penicillin; Z88.2 Allergy status to sulfonamides; Z79.899 Other long term (current) drug therapy; Z79.84 Long term (current) use of oral hypoglycemic drugs; Z96.643 Presence of artificial hip joint, bilateral; Z95.5 Presence of coronary angioplasty implant and graft; Z79.82 Long term (current) use of aspirin
CPT/HCPCS: 88305; 88342; 45378; 43239; J2250; J3010; J2704

== ENCOUNTER 2019-08-15 19:13 | Emergency (ER) | payer MEDICARE ==
[2019-08-15 19:24] VITALS: RESP 16; TEMP 98.7
[2019-08-15 20:27] LABS: Glucose,Whole Blood 75 mg/dL (75-99)
[2019-08-15 20:59] LABS: Basophils # (A) 0.1 k/uL (0-0.2); Basophils % (A) 2 %; Eosinophils # (A) 0.4 k/uL (0-0.7); Eosinophils % (A) 6 %; HCT 41.4 % (34.0-46.0); HGB 13.4 gm/dL (11.4-16.0); Lymphocytes % (A) 28 %; MCH 33.2 pg (25.0-35.0); MCHC 32.4 g/dL (31.0-37.0); MCV 102.8 fL (80.0-100.0); Macrocytosis Slight; Mean Platelet Volume 7.2; Monocytes # (A) 0.3 k/uL (0-1.0); Monocytes % (A) 5 %; Neutrophils # (A) 4.1 k/uL (1.3-7.7); Neutrophils % (A) 57 %; Platelet Count 193 k/uL (150-450); RBC 4.03 m/uL (3.80-5.40); RDW 15.4 % (11.5-15.5); WBC 7.1 k/uL (3.8-10.6)
--- NOTE | 2019-08-15 21:13 | XR ---
EXAMINATION TYPE: XR elbow complete LT DATE OF EXAM: 08/15/2019 COMPARISON: NONE HISTORY: Elbow pain and swelling TECHNIQUE: 3 views FINDINGS: There is spurring on the olecranon process of the ulna. There are multiple rounded ossifica tions around the elbow joint probably due to old injury. There could be a synovial chondromatosis. Th e radial head is intact. There is spurring on the radial head. There is no dislocation. I see no frac ture. IMPRESSION: No acute bony abnormality. 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 Degenerative spurring on the olecranon process and the radial head.
[2019-08-15 21:20] LABS: ALT 19 U/L (9-52); AST 46 U/L (14-36); African American GFR (CKD) >90 (>60 ml/min/1.73 sqM); Albumin 4.7 g/dL (3.5-5.0); Alkaline Phosphatase 64 U/L (38-126); Anion Gap 9 mmol/L; Blood Urea Nitrogen 21 mg/dL (7-17); Calcium 9.6 mg/dL (8.4-10.2); Carbon Dioxide 28 mmol/L (22-30); Chloride 104 mmol/L (98-107); Glucose 89 mg/dL (74-99); Sodium 141 mmol/L (137-145); Total Protein 7.8 g/dL (6.3-8.2)
--- NOTE | 2019-08-15 21:28 | ED ---
General Adult HPI - General Chief complaint: Dizziness Stated complaint: L Arm Swelling Time Seen by Provider: 08/15/19 20:16 Source: patient Mode of arrival: wheelchair Limitations: no limitations - History of Present Illness Initial comments: 69-year-old female patient presents to the emergency department today for evaluation of dizziness, low blood sugar, and left elbow pain and swelling. Patient states that just prior to arrival she started to become dizzy. States took her blood sugar was low around 99. States when she got here was decreased to 75. States that she has had issues with low blood sugar in the past. Takes oral medication for her diabetes. Patient states that today she has developed pain and swelling over the left elbow. She denies any injury to the arm. Denies any fever or chills. States that she has increased pain when she attempts to straighten it. States she was out in the barn so she could've been bitten by a spider. Patient denies any recent rash, shortness breath, chest pain, abdominal pain, nausea, vomiting, diarrhea, constipation, back pain, numbness, tingling, hematuria, dysuria, urinary urgency, urinary frequency, headache, visual changes, or any other complaints. - Related Data Home Medications Medication Instructions Recorded Confirmed Bisoprolol Fumarate [Zebeta] 10 mg PO QAM 05/12/14 03/07/19 Chlorzoxazone [Parafon Forte Dsc] 1,000 mg PO TID PRN 05/12/14 03/07/19 Fenofibrate,Micronized 200 mg PO 05/12/14 03/07/19 [Fenofibrate] Gabapentin [Neurontin] 600 mg PO TID 05/12/14 03/07/19 Isosorbide Mononitrate ER [Imdur] 30 mg PO QAM 05/12/14 03/07/19 Lansoprazole [Prevacid] 30 mg PO BID 05/12/14 03/07/19 Lovastatin [Mevacor] 20 mg PO HS 05/12/14 03/07/19 Montelukast [Singulair] 10 mg PO HS 05/12/14 03/07/19 Oxybutynin Chloride [Ditropan XL] 10 mg PO BID 05/12/14 03/07/19 Temazepam [Restoril] 30 mg PO HS PRN 05/12/14 03/07/19 Albuterol Nebulized [Ventolin 2.5 mg INHALATION RT-QID PRN 02/23/16 03/07/19 Nebulized] Alendronate Sodium 70 mg PO [place]ON 02/23/16 03/07/19 FLUoxetine HCL [PROzac] 20 mg PO BID 02/23/16 03/07/19 Folic Acid 1 mg PO DAILY 02/23/16 03/07/19 HYDROcodone/APAP 10-325MG [[place] 1 tab PO BID 02/23/16 03/07/19 10-325] amLODIPine BESYLATE [Amlodipine 10 mg PO QAM 02/23/16 03/07/19 Besylate] glipiZIDE [Glucotrol XL] 5 mg PO DAILY 02/23/16 03/07/19 traZODone HCL [Desyrel] 100 - 200 mg PO HS 02/23/16 03/07/19 DULoxetine HCL [Cymbalta] 60 mg PO DAILY 08/09/16 03/07/19 Lisinopril [Zestril] 10 mg PO BID 04/21/17 03/07/19 Azelastine HCl [Astepro] 2 spray EA NOSTRIL BID PRN 06/23/17 03/07/19 Ergocalciferol [Vitamin D2 50,000 unit PO EDMONDSON 06/23/17 03/07/19 (DRISDNALLELY)] valACYclovir HCL [Valtrex] 1,000 mg PO BID PRN 06/23/17 03/07/19 Apixaban [Eliquis] 5 mg PO BID 12/29/18 03/07/19 Methotrexate 25mg/Iml 0.8 ml SQ TU 12/30/18 03/07/19 Previous Rx's Medication Instructions Recorded Naproxen [EC-Naprosyn] 500 mg PO BID PRN #30 tablet. 08/15/19 Allergies Allergy/AdvReac Type Severity Reaction Status Date / Time Penicillins Allergy Rash/Hives Verified 08/15/19 19:24 sulfamethoxazole Allergy Rash/Hives Verified 08/15/19 19:24 [From Bactrim] trimethoprim [From Bactrim] Allergy Rash/Hives Verified 08/15/19 19:24 Review of Systems ROS Statement: Those systems with pertinent positive or pertinent negative responses have been documented in the HPI. ROS Other: All systems not noted in ROS Statement are negative. Past Medical History Past Medical History: Asthma, Coronary Artery Disease (CAD), Chest Pain / Angina, CVA/TIA, Diabetes Mellitus, Deep Vein Thrombosis (DVT), Fibromyalgia, Hyperlipidemia, Hypertension, Osteoarthritis (OA), Rheumatoid Arthritis (RA) Additional Past Medical History / Comment(s): having rt lower abd pain with constipation, LUPUS, STATES WAS TOLD HAD "SILENT CVA". BLE DVT, CHRONIC BACK PAIN History of Any Multi-Drug Resistant Organisms: None Reported Past Surgical History: Back Surgery, Heart Catheterization With Stent, Hysterectomy, Joint Replacement, Orthopedic Surgery Additional Past Surgical History / Comment(s): RIGHT FOOT, TOTAL RIGHT ANKLE, BILAT JEANIE, COLONOSCOPY/EGD Past Anesthesia/Blood Transfusion Reactions: No Reported Reaction Additional Past Anesthesia/Blood Transfusion Reaction / Comment(s): Disoriented with anesthesia. Date of Last Stent Placement:: UNSURE Past Psychological History: Depression Smoking Status: Never smoker Past Alcohol Use History: None Reported Past Drug Use History: None Reported - Past Family History Mother Family Medical History: Cancer, Coronary Artery Disease (CAD), Rheumatoid Arthritis (RA) Additional Family Medical History / Comment(s): LUNG CANCER Father Family Medical History: Cancer Additional Family Medical History / Comment(s): lung General Exam Limitations: no limitations General appearance: alert, in no apparent distress, other (Physical well- developed, well-nourished elderly female patient in no acute distress. Vital signs upon presentation are temperature 98.7F, pulse 62, respirations 16, blood pressure 164/79, pulse ox 96% on room air.) Eye exam: Present: normal appearance, PERRL, EOMI. Absent: scleral icterus, conjunctival injection, periorbital swelling ENT exam: Present: normal exam, normal oropharynx, mucous membranes moist Respiratory exam: Present: normal lung sounds bilaterally. Absent: respiratory distress, wheezes, rales, rhonchi, stridor Cardiovascular Exam: Present: regular rate, normal rhythm, normal heart sounds. Absent: systolic murmur, diastolic murmur, rubs, gallop, clicks GI/Abdominal exam: Present: soft, normal bowel sounds. Absent: distended, tenderness, guarding, rebound, rigid Extremities exam: Present: full ROM, tenderness (Tenderness over the elbow), normal capillary refill, other (There is soft tissue swelling noted over the left medial elbow. No erythema. Skin to the arm is pink, warm, dry. Cap r efills less than 3 seconds. Radial pulses are 2+ and equal bilaterally.). Absent: normal inspection, pedal edema, joint swelling, calf tenderness Neurological exam: Present: alert, oriented X3, CN II-XII intact Psychiatric exam: Present: normal affect, normal mood Skin exam: Present: warm, dry, intact, normal color. Absent: rash Course Vital Signs 08/15/19 08/15/19 19:22 22:48 Temperature 98.7 F Pulse Rate 62 78 Respiratory 16 16 Rate Blood Pressure 164/79 150/73 O2 Sat by Pulse 96 98 Oximetry Medical Decision Making - Medical Decision Making 69-year-old female patient presented to the emergency department today for evaluation of dizziness, hypoglycemia, and left elbow pain. Physical examin ation did reveal left medial elbow swelling. No erythema. There was some dorsal tenderness. Neurovascular status was intact. Patient's blood sugar was decreased into the 70s. Labs reviewed and revealed normal white blood cell count. Blood sugar did improve with food here in the emergency department. X- ray of the left elbow was negative. Symptoms are consistent with bursitis. She'll be treated with anti-inflammatories and compression. She is instructed to follow-up with her primary care physician for recheck in 1-2 days. Return parameters were discussed in detail. She verbalizes understanding and agrees with this plan. - Lab Data Result diagrams: 08/15/19 20:45 08/15/19 20:45 Lab Results 08/15/19 08/15/19 08/15/19 Range/Units 20:25 20:45 20:45 WBC 7.1 (3.8-10.6) k/uL RBC 4.03 (3.80-5.40) m/uL Hgb 13.4 (11.4-16.0) gm/dL Hct 41.4 (34.0-46.0) % MCV 102.8 H (80.0-100.0) fL MCH 33.2 (25.0-35.0) pg MCHC 32.4 (31.0-37.0) g/dL RDW 15.4 (11.5-15.5) % Plt Count 193 (150-450) k/uL Neutrophils % 57 % Lymphocytes % 28 % Monocytes % 5 % Eosinophils % 6 % Basophils % 2 % Neutrophils # 4.1 (1.3-7.7) k/uL Lymphocytes # 2.0 (1.0-4.8) k/uL Monocytes # 0.3 (0-1.0) k/uL Eosinophils # 0.4 (0-0.7) k/uL Basophils # 0.1 (0-0.2) k/uL Macrocytosis Slight Sodium 141 (137-145) mmol/L Potassium 5.4 H (3.5-5.1) mmol/L Chloride 104 (98-107) mmol/L Carbon Dioxide 28 (22-30) mmol/L Anion Gap 9 mmol/L BUN 21 H (7-17) mg/dL Creatinine 0.69 (0.52-1.04) mg/dL Est GFR (CKD-EPI)AfAm >90 (>60 ml/min/1.73 sqM) Est GFR (CKD-EPI)NonAf 89 (>60 ml/min/1.73 sqM) Glucose 89 (74-99) mg/dL POC Glucose (mg/dL) 75 (75-99) mg/dL POC Glu Diesel Locomotive Engineer ID Brie Cool Calcium 9.6 (8.4-10.2) mg/dL Total Bilirubin 1.0 (0.2-1.3) mg/dL AST 46 H (14-36) U/L ALT 19 (9-52) U/L Alkaline Phosphatase 64 (38-126) U/L Total Protein 7.8 (6.3-8.2) g/dL Albumin 4.7 (3.5-5.0) g/dL Urine Color Urine Appearance (Clear) Urine pH (5.0-8.0) Ur Specific Lutz (1.001-1.035) Urine Protein (Negative) Urine Glucose (UA) (Negative) Urine Ketones (Negative) Urine Blood (Negative) Urine Nitrite (Negative) Urine Bilirubin (Negative) Urine Urobilinogen (<2.0) mg/dL Ur Leukocyte Esterase (Negative) 08/15/19 08/15/19 Range/Units 21:20 22:44 WBC (3.8-10.6) k/uL RBC (3.80-5.40) m/uL Hgb (11.4-16.0) gm/dL Hct (34.0-46.0) % MCV (80.0-100.0) fL MCH (25.0-35.0) pg MCHC (31.0-37.0) g/dL RDW (11.5-15.5) % Plt Count (150-450) k/uL Neutrophils % % Lymphocytes % % Monocytes % % Eosinophils % % Basophils % % Neutrophils # (1.3-7.7) k/uL Lymphocytes # (1.0-4.8) k/uL Monocytes # (0-1.0) k/uL Eosinophils # (0-0.7) k/uL Basophils # (0-0.2) k/uL Macrocytosis Sodium (137-145) mmol/L Potassium (3.5-5.1) mmol/L Chloride (98-107) mmol/L Carbon Dioxide (22-30) mmol/L Anion Gap mmol/L BUN (7-17) mg/dL Creatinine (0.52-1.04) mg/dL Est GFR (CKD-EPI)AfAm (>60 ml/min/1.73 sqM) Est GFR (CKD-EPI)NonAf (>60 ml/min/1.73 sqM) Glucose (74-99) mg/dL POC Glucose (mg/dL) 107 H (75-99) mg/dL POC Glu Diesel Locomotive Engineer ID Brie Cool Calcium (8.4-10.2) mg/dL Total Bilirubin (0.2-1.3) mg/dL AST (14-36) U/L ALT (9-52) U/L Alkaline Phosphatase (38-126) U/L Total Protein (6.3-8.2) g/dL Albumin (3.5-5.0) g/dL Urine Color Light Yellow Urine Appearance Clear (Clear) Urine pH 6.5 (5.0-8.0) Ur Specific Lutz 1.005 (1.001-1.035) Urine Protein Negative (Negative) Urine Glucose (UA) Negative (Negative) Urine Ketones Negative (Negative) Urine Blood Negative (Negative) Urine Nitrite Negative (Negative) Urine Bilirubin Negative (Negative) Urine Urobilinogen <2.0 (<2.0) mg/dL Ur Leukocyte Esterase Negative (Negative) - Radiology Data Radiology results: report reviewed, image reviewed 3 views of the left elbow are obtained. Report was reviewed in its entirety. Impression by Dr. Galloway shows no acute bony abnormalities. 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 Degenerative spurring on the olecranon process on the radial head. Disposition Clinical Impression: Olecranon bursitis, left elbow, Hypoglycemia Disposition: HOME SELF-CARE Condition: Good Instructions (If sedation given, give patient instructions): Elbow Bursitis (ED), Hypoglycemia in a Person with Diabetes (ED) Additional Instructions: Eat small more frequent meals. Use Jozef wrap to the left elbow for comfort and support. Take medications as directed. Follow-up with your primary care p reyesciprecious for recheck in 1-2 days. Return to the emergency department immediately for any new, worsening, or concerning symptoms. Prescriptions: Naproxen [EC-Naprosyn] 500 mg PO BID PRN #30 tablet.dr ROBERTS Reason: Pain Is patient prescribed a controlled substance at d/c from ED?: No Referrals: Elida Baltazar MD [Primary Care Provider] - 1-2 days Time of Disposition: 22:38
[2019-08-15 21:30] LABS: Potassium 5.4 mmol/L (3.5-5.1)
[2019-08-15 22:00] LABS: Appearance,Urine Clear (Clear); Bilirubin,Urine Negative (Negative); Blood,Urine Negative (Negative); Color,Urine Light Yellow; Glucose,Urine (UA) Negative (Negative); Ketones,Urine Negative (Negative); Leukocyte Esterase,Urine Negative (Negative); Nitrite,Urine Negative (Negative); PH, Urine 6.5 (5.0-8.0); Protein,Urine Negative (Negative); Specific Gravity,Urine 1.005 (1.001-1.035); Urobilinogen,Urine <2.0 mg/dL (<2.0)
[2019-08-15] MEDS ORDERED: KETOROLAC 30 MG/ML 1 ML VIAL IVP STA (22:02)
[2019-08-15] MEDS ORDERED: HYDROcodone/APAP 5-325MG 1 EACH TAB PO STA (22:02)
[2019-08-15 22:49] VITALS: BP 150/73; PULSE 78
[2019-08-15 22:49] LABS: Glucose,Whole Blood 107 mg/dL (75-99)
== END 2019-08-15 22:49 | disposition home or self-care (01) ==
LOC: EC 19:13
DX: E11.649 Type 2 diabetes mellitus with hypoglycemia without coma (principal); M70.22 Olecranon bursitis, left elbow; J45.909 Unspecified asthma, uncomplicated; I25.119 Atherosclerotic heart disease of native coronary artery with unspecified angina pectoris; E11.9 Type 2 diabetes mellitus without complications; E78.5 Hyperlipidemia, unspecified; I10 Essential (primary) hypertension; M19.90 Unspecified osteoarthritis, unspecified site; F32.9 Major depressive disorder, single episode, unspecified; M32.9 Systemic lupus erythematosus, unspecified; M79.7 Fibromyalgia; Z79.01 Long term (current) use of anticoagulants; Z79.899 Other long term (current) drug therapy; Z79.84 Long term (current) use of oral hypoglycemic drugs; Z88.0 Allergy status to penicillin; Z88.1 Allergy status to other antibiotic agents; Z88.2 Allergy status to sulfonamides; Z95.5 Presence of coronary angioplasty implant and graft; Z96.643 Presence of artificial hip joint, bilateral; Z86.73 Personal history of transient ischemic attack (TIA), and cerebral infarction without residual deficits; Z86.718 Personal history of other venous thrombosis and embolism
CPT/HCPCS: 36415; 80053; 85025; 81003; 73080; 99284; 96374; J1885

== ENCOUNTER 2019-12-28 14:01 | Emergency (ER) | payer MEDICARE ==
[2019-12-28 14:09] VITALS: PULSE 82; TEMP 98.2
[2019-12-28] MEDS ORDERED: DIPH,PERTUS(ACELL)TETVAC-LF 0.5 ML VIAL IM ONE (14:28)
[2019-12-28] MEDS ORDERED: HYDROmorphone 1 MG/ML 1 ML SYRINGE IVP STA (14:28)
[2019-12-28] MEDS ORDERED: SODIUM CHLORIDE 0.9% 1,000 ML IV STA (14:28)
--- NOTE | 2019-12-28 14:34 | ED ---
General Adult HPI - General Chief complaint: Trauma Stated complaint: right arm swollen/head injury/horse stepped on her Time Seen by Provider: 12/28/19 14:19 Source: patient, RN notes reviewed Mode of arrival: wheelchair Limitations: no limitations - History of Present Illness Initial comments: Patient is a pleasant 69-year-old female presenting to the emergency department following injury by horse. Patient states she was taking her horse out of the trailer when it hit the side and got spooked. Horse then ran into her and knocked her down. Patient did strike her head. No loss of consciousness. No confusion or vomiting or change in mental status or weakness. Patient does not have headache. Patient believes she was stepped on on the right forearm and possibly the back as well. Most of patient's discomfort is lower back as well as some of the forearm. No leg weakness or paresthesias or incontinence or retention. Incident occurred around 9:30. Unclear last tetanus immunization. Patient is ambulatory without difficulty. No abdominal pain except for some chronic right upper abdominal discomfort that is unchanged and patient sees a surgeon for this. Patient noticed bruising of her left breast without chest pain. Patient states there was some left upper neck discomfort however that is near resolved. - Related Data Home Medications Medication Instructions Recorded Confirmed Bisoprolol Fumarate [Zebeta] 10 mg PO QAM 05/12/14 12/28/19 Chlorzoxazone [Parafon Forte Dsc] 500 mg PO TID PRN 05/12/14 12/28/19 Fenofibrate,Micronized 200 mg PO 05/12/14 12/28/19 [Fenofibrate] Gabapentin [Neurontin] 600 mg PO TID 05/12/14 12/28/19 Isosorbide Mononitrate ER [Imdur] 30 mg PO QAM 05/12/14 12/28/19 Lansoprazole [Prevacid] 30 mg PO BID@0900,1700 05/12/14 12/28/19 Lovastatin [Mevacor] 20 mg PO 05/12/14 12/28/19 Montelukast [Singulair] 10 mg PO 05/12/14 12/28/19 Oxybutynin Chloride [Ditropan XL] 10 mg PO BID 05/12/14 12/28/19 Albuterol Nebulized [Ventolin 2.5 mg INHALATION RT-QID PRN 02/23/16 12/28/19 Nebulized] Alendronate Sodium 70 mg PO [place] 02/23/16 12/28/19 FLUoxetine HCL [PROzac] 20 mg PO BID 02/23/16 12/28/19 Folic Acid 1 mg PO DAILY 02/23/16 12/28/19 HYDROcodone/APAP 10-325MG [[place] 1 tab PO BID 02/23/16 12/28/19 10-325] amLODIPine BESYLATE [Amlodipine 10 mg PO QAM 02/23/16 12/28/19 Besylate] glipiZIDE [Glucotrol XL] 5 mg PO DAILY 02/23/16 12/28/19 traZODone HCL [Desyrel] 200 mg PO HS 02/23/16 12/28/19 DULoxetine HCL [Cymbalta] 60 mg PO DAILY 08/09/16 12/28/19 Lisinopril [Zestril] 10 mg PO BID@0900,1700 04/21/17 12/28/19 Ergocalciferol [Vitamin D2 50,000 unit PO [place] 06/23/17 12/28/19 (DRISDOL)] Methotrexate 25mg/Iml 0.8 ml SQ TU 12/30/18 12/28/19 Aspirin [[place] Aspirin EC] 81 mg PO DAILY 12/28/19 12/28/19 Clindamycin HCl 300 mg PO TID 12/28/19 12/28/19 Ibuprofen [Motrin] 800 mg PO Q6H PRN 12/28/19 12/28/19 Allergies Allergy/AdvReac Type Severity Reaction Status Date / Time Penicillins Allergy Rash/Hives Verified 12/28/19 15:48 sulfamethoxazole Allergy Rash/Hives Verified 12/28/19 15:48 [From Bactrim] trimethoprim [From Bactrim] Allergy Rash/Hives Verified 12/28/19 15:48 Review of Systems ROS Statement: Those systems with pertinent positive or pertinent negative responses have been documented in the HPI. ROS Other: All systems not noted in ROS Statement are negative. Constitutional: Denies: fever Eyes: Denies: eye pain ENT: Denies: ear pain Respiratory: Denies: cough, dyspnea Cardiovascular: Denies: chest pain Endocrine: Denies: fatigue Gastrointestinal: Denies: abdominal pain, vomiting Genitourinary: Denies: dysuria Musculoskeletal: Reports: as per HPI Skin: Denies: rash Neurological: Denies: headache, weakness, confusion Past Medical History Past Medical History: Asthma, Coronary Artery Disease (CAD), Chest Pain / Angina, CVA/TIA, Diabetes Mellitus, Deep Vein Thrombosis (DVT), Fibromyalgia, Hyperlipidemia, Hypertension, Osteoarthritis (OA), Rheumatoid Arthritis (RA) Additional Past Medical History / Comment(s): having rt lower abd pain with constipation, LUPUS, STATES WAS TOLD HAD "SILENT CVA". BLE DVT, CHRONIC BACK PAIN History of Any Multi-Drug Resistant Organisms: None Reported Past Surgical History: Back Surgery, Heart Catheterization With Stent, Hysterec annette, Joint Replacement, Orthopedic Surgery Additional Past Surgical History / Comment(s): RIGHT FOOT, TOTAL RIGHT ANKLE, BILAT JEANIE, COLONOSCOPY/EGD Past Anesthesia/Blood Transfusion Reactions: No Reported Reaction Additional Past Anesthesia/Blood Transfusion Reaction / Comment(s): Disoriented with anesthesia. Date of Last Stent Placement:: UNSURE Past Psychological History: Depression Smoking Status: Never smoker Past Alcohol Use History: None Reported Past Drug Use History: None Reported - Past Family History Mother Family Medical History: Cancer, Coronary Artery Disease (CAD), Rheumatoid Arthritis (RA) Additional Family Medical History / Comment(s): LUNG CANCER Father Family Medical History: Cancer Additional Family Medical History / Comment(s): lung General Exam Limitations: no limitations General appearance: alert, in no apparent distress Head exam: Present: other (Left posterior parietal soft tissue swelling approximately 3 x 3 cm. Left eyebrow swelling and abrasion) Eye exam: Present: normal appearance, PERRL, EOMI. Absent: nystagmus ENT exam: Present: normal oropharynx Neck exam: Present: normal inspection. Absent: tenderness Respiratory exam: Present: normal lung sounds bilaterally Cardiovascular Exam: Present: regular rate, normal rhythm Expanded Peripheral pulses: 2+: Radial (R) GI/Abdominal exam: Present: soft. Absent: distended, tenderness, guarding, mariaelena ound, rigid Extremities exam: Present: full ROM Right Forearm Wrist exam: Present: tenderness, swelling, abrasion (Distal dorsal forearm with skin flap approximately 2 x 3 cm) Hand Wrist exam: Present: tenderness, swelling, other (Distal extremity is neurovascularly intact.) Back exam: Present: tenderness (Lumbar with diffuse tenderness and mild ecchymosis) Neurological exam: Present: alert, oriented X3, CN II-XII intact. Absent: motor sensory deficit Expanded Neurological exam: Present: protecting the airway Speech: Present: fluid speech Motor strength exam: RUE: 5, LUE: 5, RLE: 5, LLE: 5 Eye Response: (4) open spontaneously Motor Response: (6) obeys commands Verbal Response: (5) oriented Psychiatric exam: Present: normal affect, normal mood Skin exam: Present: abrasion, other (Right distal forearm skin flat. Ecchymosis left breast without tenderness) Course Vital Signs 12/28/19 12/28/19 12/28/19 14:04 15:00 16:05 Temperature 98.2 F 98.2 F Pulse Rate 82 Respiratory 18 16 16 Rate Blood Pressure 182/108 Blood Pressure 182/101 185/88 [Left Arm Supine] O2 Sat by Pulse 96 100 98 Oximetry EKG Findings - EKG Comments: EKG Findings:: Normal sinus rhythm 69. TX 164. QRS 108. QT 4:30. QTC 460. Normal axis. Septal Q waves. No acute ST change. Medical Decision Making - Medical Decision Making Patient reevaluated and resting comfortably in bed. Patient and family updated on results and need for follow-up. Patient is comfortable with discharge home. Patient has no tenderness over the radial head. Patient refuses splint. - Lab Data Result diagrams: 12/28/19 14:34 12/28/19 14:34 Lab Results 12/28/19 12/28/19 12/28/19 Range/Units 14:30 14:34 14:34 WBC 9.2 (3.8-10.6) k/uL RBC 4.09 (3.80-5.40) m/uL Hgb 13.2 (11.4-16.0) gm/dL Hct 41.1 (34.0-46.0) % MCV 100.7 H (80.0-100.0) fL MCH 32.2 (25.0-35.0) pg MCHC 32.0 (31.0-37.0) g/dL RDW 15.1 (11.5-15.5) % Plt Count 176 (150-450) k/uL Neutrophils % 75 % Lymphocytes % 14 % Monocytes % 7 % Eosinophils % 3 % Basophils % 0 % Neutrophils # 6.9 (1.3-7.7) k/uL Lymphocytes # 1.3 (1.0-4.8) k/uL Monocytes # 0.6 (0-1.0) k/uL Eosinophils # 0.3 (0-0.7) k/uL Basophils # 0.0 (0-0.2) k/uL Macrocytosis Slight PT (9.0-12.0) sec INR (<1.2) APTT (22.0-30.0) sec Sodium 139 (137-145) mmol/L Potassium 4.2 (3.5-5.1) mmol/L Chloride 109 H (98-107) mmol/L Carbon Dioxide 22 (22-30) mmol/L Anion Gap 8 mmol/L BUN 24 H (7-17) mg/dL Creatinine 0.78 (0.52-1.04) mg/dL Est GFR (CKD-EPI)AfAm 89 (>60 ml/min/1.73 sqM) Est GFR (CKD-EPI)NonAf 78 (>60 ml/min/1.73 sqM) Glucose 79 (74-99) mg/dL Calcium 9.3 (8.4-10.2) mg/dL Total Bilirubin 0.6 (0.2-1.3) mg/dL AST 99 H (14-36) U/L ALT 45 H (4-34) U/L Alkaline Phosphatase 77 (38-126) U/L Troponin I (0.000-0.034) ng/mL Total Protein 7.1 (6.3-8.2) g/dL Albumin 4.2 (3.5-5.0) g/dL Serum Alcohol <10 mg/dL Blood Type O Positive Blood Type Recheck O Pos Bld Type Recheck Status No Antibody Screen NEGATIVE Spec Expiration Date 12/31/2019232912/28/19 12/28/19 Range/Units 14:34 14:34 WBC (3.8-10.6) k/uL RBC (3.80-5.40) m/uL Hgb (11.4-16.0) gm/dL Hct (34.0-46.0) % MCV (80.0-100.0) fL MCH (25.0-35.0) pg MCHC (31.0-37.0) g/dL RDW (11.5-15.5) % Plt Count (150-450) k/uL Neutrophils % % Lymphocytes % % Monocytes % % Eosinophils % % Basophils % % Neutrophils # (1.3-7.7) k/uL Lymphocytes # (1.0-4.8) k/uL Monocytes # (0-1.0) k/uL Eosinophils # (0-0.7) k/uL Basophils # (0-0.2) k/uL Macrocytosis PT 10.2 (9.0-12.0) sec INR 1.0 (<1.2) APTT 22.0 (22.0-30.0) sec Sodium (137-145) mmol/L Potassium (3.5-5.1) mmol/L Chloride (98-107) mmol/L Carbon Dioxide (22-30) mmol/L Anion Gap mmol/L BUN (7-17) mg/dL Creatinine (0.52-1.04) mg/dL Est GFR (CKD-EPI)AfAm (>60 ml/min/1.73 sqM) Est GFR (CKD-EPI)NonAf (>60 ml/min/1.73 sqM) Glucose (74-99) mg/dL Calcium (8.4-10.2) mg/dL Total Bilirubin (0.2-1.3) mg/dL AST (14-36) U/L ALT (4-34) U/L Alkaline Phosphatase (38-126) U/L Troponin I 0.012 (0.000-0.034) ng/mL Total Protein (6.3-8.2) g/dL Albumin (3.5-5.0) g/dL Serum Alcohol mg/dL Blood Type Blood Type Recheck Bld Type Recheck Status Antibody Screen Spec Expiration Date - Radiology Data Radiology results: report reviewed (Computed tomography scan of the chest abdomen pelvis shows no acute traumatic injury. Interstitial pulmonary infiltrates at lung bases with atelectasis. Increased from old exam. Moderate multilevel thoracic and lumbar spondylitic changes. Significant plate spurring 11 and T12 posterior with spinal calcinosis. Computed tomography scan the brain and C-spine shows scalp hematoma. No acute intercranial abnormality. Sub luxation C3-C4 suggesting degenerative instability. No fracture. Spondylosis), image reviewed ((X-ray shows arthritic changes. No fracture. Right hand x-ray shows advanced osteoarthritis. No fracture. X-ray right forearm shows possible nondisplaced radial head fracture.) Disposition Clinical Impression: Multiple trauma, Back contusion, Wrist contusion, Head injury Disposition: HOME SELF-CARE Condition: Stable Instructions (If sedation given, give patient instructions): Head Injury (ED), Contusion in Adults (ED), Acute Wound Care (ED) Additional Instructions: Please follow-up with primary care physician on Monday. Return for confusion, vomiting, weakness, worsening symptoms or other concerns. Twice daily wash all wounds with soap and water, apply antibiotic ointment, and bandage. Is patient prescribed a controlled substance at d/c from ED?: No Referrals: Elida Baltazar MD [Primary Care Provider] - 1-2 days Time of Disposition: 16:20
[2019-12-28 14:46] LABS: Basophils % (A) 0 %; Eosinophils # (A) 0.3 k/uL (0-0.7); Eosinophils % (A) 3 %; HCT 41.1 % (34.0-46.0); HGB 13.2 gm/dL (11.4-16.0); Lymphocytes # (A) 1.3 k/uL (1.0-4.8); Lymphocytes % (A) 14 %; MCH 32.2 pg (25.0-35.0); MCV 100.7 fL (80.0-100.0); Macrocytosis Slight; Mean Platelet Volume 8.1; Monocytes # (A) 0.6 k/uL (0-1.0); Monocytes % (A) 7 %; Neutrophils # (A) 6.9 k/uL (1.3-7.7); Neutrophils % (A) 75 %; Platelet Count 176 k/uL (150-450); RBC 4.09 m/uL (3.80-5.40); RDW 15.1 % (11.5-15.5); WBC 9.2 k/uL (3.8-10.6)
[2019-12-28 14:58] LABS: Prothrombin Time 10.2 sec (9.0-12.0)
[2019-12-28 15:01] VITALS: RESP 16
[2019-12-28 15:05] LABS: ALT 45 U/L (4-34); AST 99 U/L (14-36); African American GFR (CKD) 89 (>60 ml/min/1.73 sqM); Albumin 4.2 g/dL (3.5-5.0); Alcohol <10 mg/dL; Alkaline Phosphatase 77 U/L (38-126); Anion Gap 8 mmol/L; Blood Urea Nitrogen 24 mg/dL (7-17); Calcium 9.3 mg/dL (8.4-10.2); Carbon Dioxide 22 mmol/L (22-30); Chloride 109 mmol/L (98-107); Glucose 79 mg/dL (74-99); Non-African American GFR(CKD) 78 (>60 ml/min/1.73 sqM); Potassium 4.2 mmol/L (3.5-5.1); Sodium 139 mmol/L (137-145); Total Bilirubin 0.6 mg/dL (0.2-1.3); Total Protein 7.1 g/dL (6.3-8.2)
--- NOTE | 2019-12-28 15:42 | XR ---
EXAMINATION TYPE: XR foot complete LT DATE OF EXAM: 12/28/2019 COMPARISON: NONE HISTORY: Pain TECHNIQUE: 3 views FINDINGS: There is narrowing and spurring at the first MP joint. There is mild hallux valgus. There i s some deformity of the fifth MP joint with varus deformity of the MP joints. I see no fracture nor d islocation. There is spurring at the tarsometatarsal joints. There is spurring at the talonavicular j oint. IMPRESSION: Osteoarthritic changes. No sign of inflammatory arthritis. No fracture.
--- NOTE | 2019-12-28 15:45 | XR ---
EXAMINATION TYPE: XR forearm RT DATE OF EXAM: 12/28/2019 COMPARISON: NONE HISTORY: Pain TECHNIQUE: 2 views FINDINGS: There is extensive spurring on the olecranon process of the ulna and the coronoid process. There is some deformity of the neck of the radial head consistent with an acute fracture. There is no dislocation. There is some soft tissue swelling around the forearm. Radial head is not seen to best advantage due to extensive spurring at the elbow joint. IMPRESSION: Osteoarthritis. Nondisplaced radial head fracture could be acute.
--- NOTE | 2019-12-28 15:47 | XR ---
EXAMINATION TYPE: XR hand complete RT DATE OF EXAM: 12/28/2019 COMPARISON: NONE HISTORY: Pain TECHNIQUE: 3 views FINDINGS: There is extensive narrowing and spurring at the IP joints of the fingers. There is signifi cant spurring and narrowing at the first carpometacarpal joint. There is no osteopenia. There is no s ubluxation. Metacarpals are intact. IMPRESSION: Advanced osteoarthritis. There are some features of erosive type osteoarthritis. No fract ure seen.
--- NOTE | 2019-12-28 15:56 | CT ---
EXAMINATION TYPE: CT brain eulogio wo con DATE OF EXAM: 12/28/2019 COMPARISON: 09/30/2017 HISTORY: Headache after head injury. CT DLP: 1374 mGycm Automated exposure control for dose reduction was used. Multiple axial sections were obtained of the brain without contrast. Multiple axial sections were obt ained from the skull base to T1 vertebra without contrast. There is some cerebral cortical atrophy. There is 3 cm area of hypodensity in the lateral right front al lobe consistent with old infarct and encephalomalacia. There is no midline shift. There is no evid ence of intracranial hemorrhage. The calvarium is intact. There is left occipital scalp hematoma. There is some straightening of the cervical spine. There is retrolisthesis at C5-6-1 5 mm. There is m oderate narrowing of C5-6 and C6-7 disc spaces. There is anterior subluxation deformity at C3-4 oh 5 mm. There is multilevel moderate facet arthropathy. There is upper thoracic levoscoliotic deformity. I see no cervical spine fracture. IMPRESSION: Left occipital scalp hematoma. No acute intracranial abnormality. Brain unchanged compared to old exam. Spondylotic changes in the cervical spine. There is new subluxation deformity at C3-4 compared to old exam that suggests degenerative instability. No cervical spine fracture. Moderate spondylosis at C5- 6 and C6-7.
--- NOTE | 2019-12-28 16:02 | CT ---
EXAMINATION TYPE: CT ChestAbdPelvis w con DATE OF EXAM: 12/28/2019 COMPARISON: CT abdomen 01/04/2018 HISTORY: Lumbar and chest pain after injury. CT DLP: 1203 mGycm Automated exposure control for dose reduction was used. CONTRAST: Performed with IV Contrast, patient injected with 100ml mL of Isovue 300. There is no pneumothorax. There is coarse interstitial infiltrate in the mid and lower lung marino. H eart is enlarged. There is no pericardial effusion. There is no mediastinal adenopathy. Thoracic aort a is atheromatous. There is coronary artery calcification. Liver spleen pancreas stomach appear normal. There is cholecystectomy. There is no dilation of the in trahepatic bile ducts. There is no adrenal mass. There is mild renal atrophy. There is no hydronephrosis. There is no retrop eritoneal adenopathy. There is metal artifact from bilateral hip prosthesis. Bony pelvis is intact. T here is multilevel lumbar laminectomy defect. There is no mesenteric edema. There is no ascites or free air. There is no evidence of a bowel obstru ction. Urinary bladder is not well seen due to metal artifact. There is multilevel spondylotic changes in the thoracic and lumbar spine. There is disc space narrowi ng and osteosclerosis. There is no significant compression deformity. Sternum is intact. The ribs santiago ear intact. Shoulder joints appear intact. IMPRESSION: Interstitial pulmonary infiltrates and atelectasis at the lung bases. This appears increased compared to old exam. No fracture. No evidence of acute traumatic injury within the chest abdomen pelvis. Mod erate multilevel thoracic and lumbar spondylotic changes. There is significant endplate spurring at T 11 and T12 posteriorly with spinal stenosis.
[2019-12-28 16:07] VITALS: BP 185/88
[2019-12-28] MEDS ORDERED: ACET/COD 300 MG/30 MG STARTER PACK 6 TAB BTL PO STA (16:17)
== END 2019-12-28 16:30 | disposition home or self-care (01) ==
LOC: EC 14:01
DX: S00.03XA Contusion of scalp, initial encounter (principal); S20.229A Contusion of unspecified back wall of thorax, initial encounter; S60.211A Contusion of right wrist, initial encounter; S20.02XA Contusion of left breast, initial encounter; S30.0XXA Contusion of lower back and pelvis, initial encounter; S00.212A Abrasion of left eyelid and periocular area, initial encounter; S50.811A Abrasion of right forearm, initial encounter; J45.909 Unspecified asthma, uncomplicated; I25.119 Atherosclerotic heart disease of native coronary artery with unspecified angina pectoris; E11.9 Type 2 diabetes mellitus without complications; M79.7 Fibromyalgia; E78.5 Hyperlipidemia, unspecified; I10 Essential (primary) hypertension; M19.90 Unspecified osteoarthritis, unspecified site; M06.9 Rheumatoid arthritis, unspecified; M32.9 Systemic lupus erythematosus, unspecified; F32.9 Major depressive disorder, single episode, unspecified; Z88.0 Allergy status to penicillin; Z88.2 Allergy status to sulfonamides; Z79.82 Long term (current) use of aspirin; Z79.84 Long term (current) use of oral hypoglycemic drugs; Z79.899 Other long term (current) drug therapy; Z86.73 Personal history of transient ischemic attack (TIA), and cerebral infarction without residual deficits; Z95.5 Presence of coronary angioplasty implant and graft; Z96.661 Presence of right artificial ankle joint; Z96.643 Presence of artificial hip joint, bilateral; Z23 Encounter for immunization; W55.12XA Struck by horse, initial encounter; Y93.89 Activity, other specified; Z53.8 Procedure and treatment not carried out for other reasons; Z53.20 Procedure and treatment not carried out because of patient's decision for unspecified reasons
CPT/HCPCS: 36415; 93005; 86900; 86901; 80053; 84484; 85025; 85610; 85730; 86850; 73090; 73130; 73630; 72125; 70450; 71260; 74177; 90715; 99284; 96374; 90471; G0480; J1170; Q9967; 80320

== ENCOUNTER 2020-06-29 10:05 | Day surgery (SDC) | payer MEDICARE ==
[~2020-06-29 10:05] MED LIST changes: +ALPRAZolam 0.5 MG TAB PO PRN; +ATORVASTATIN 80 MG TAB PO ONE
[2020-06-29 10:37] VITALS: TEMP 98
[2020-06-29 10:51] LABS: Glucose,Whole Blood 114 mg/dL (75-99)
[2020-06-29 10:57] LABS: Basophils # (A) 0.1 k/uL (0-0.2); Basophils % (A) 2 %; Eosinophils # (A) 0.5 k/uL (0-0.7); Eosinophils % (A) 10 %; HCT 39.7 % (34.0-46.0); HGB 12.7 gm/dL (11.4-16.0); Lymphocytes # (A) 1.5 k/uL (1.0-4.8); Lymphocytes % (A) 30 %; MCH 32.5 pg (25.0-35.0); MCHC 32.1 g/dL (31.0-37.0); MCV 101.2 fL (80.0-100.0); Macrocytosis Slight; Mean Platelet Volume 8.5; Monocytes # (A) 0.3 k/uL (0-1.0); Monocytes % (A) 6 %; Neutrophils # (A) 2.5 k/uL (1.3-7.7); Neutrophils % (A) 50 %; Platelet Count 209 k/uL (150-450); RBC 3.92 m/uL (3.80-5.40)
[2020-06-29] MEDS ORDERED: HYDROmorphone 1 MG/ML 1 ML SYRINGE ONE (10:59)
[2020-06-29] MEDS ORDERED: VERAPAMIL 2.5 MG/ML 2 ML AMP ONE (11:08)
[2020-06-29] MEDS ORDERED: LIDOCAINE 1% INJ 10MG/ML (20 ML MDV) ONE (11:08)
[2020-06-29] MEDS ORDERED: HEPARIN SODIUM 1,000 UN/ML (10ML VL) ONE (11:11)
[2020-06-29] MEDS ORDERED: fentaNYL (PF) 50 MCG/ML 2 ML AMP ONE (11:11)
[2020-06-29 11:16] LABS: Calcium 8.8 mg/dL (8.4-10.2); Potassium 4.4 mmol/L (3.5-5.1)
[2020-06-29] MEDS ORDERED: MIDAZOLAM 2 MG/2 ML VIAL IVP ONE (11:41)
[2020-06-29] MEDS ORDERED: LIDOCAINE 1% INJ 10MG/ML (20 ML MDV) SQ ONE (11:43)
[2020-06-29] MEDS ORDERED: IOPAMIDOL-370 125ML BTL INJ ONE (11:59)
[2020-06-29] MEDS ORDERED: RX INFO: IV CONTRAST WAS GIVEN 1 EACH MISC MISCELLANE PRN (12:01)
[2020-06-29] MEDS ORDERED: SODIUM CHLORIDE 0.9% 1,000 ML IV SCH (12:15)
[2020-06-29] MEDS ORDERED: IBUPROFEN 800 MG TAB PO STA (12:29)
[2020-06-29] MEDS ORDERED: HYDROcodone/APAP 10-325MG 1 EACH TAB ONE ×2 (12:30→17:35)
[2020-06-29 12:37] VITALS: RESP 16
[2020-06-29 16:03] VITALS: BP 107/57; PULSE 58
--- NOTE | 2020-06-29 16:06 | CC ---
CARDIAC CATHETERIZATION REPORT DATE OF SERVICE: 06/29/2020. PERFORMING PHYSICIAN: Bharath Castillo MD. PROCEDURE PERFORMED: 1. Selective right and left coronary angiogram. 2. Left heart catheterization. INDICATION: This is a 70-year-old female patient with coronary artery disease and prior stenting of the LAD as well as known chronic total occlusion of the right coronary artery, was experiencing symptoms of shortness of breath with exertion suggestive of severe underlying coronary artery disease. Because the symptoms were similar to what she had before her LAD stenting. Because of that, a heart catheterization was advised. APPROACH: Right common femoral artery. COMPLICATION: None. LEVEL OF SEDATION: Moderate with sedation length of 16 minutes. PROCEDURE DESCRIPTION: After obtaining an informed consent, the patient was brought to the cardiac blender laborer. The right common femoral artery was cannulated using micropuncture technique, the micropuncture wire passed easily, then I placed a 6-English sheath in the right common femoral artery. After that, I did selective right and left coronary angiogram using JR4 and JL4 catheters. Left heart catheterization was performed using 6-English pigtail catheter. The procedure was completed without any complication. SELECTIVE CORONARY ANGIOGRAM: 1. Right coronary artery is chronically occluded in the proximal portion and fills by collateral from the left coronary system. 2. The left main is angiographically normal, it bifurcates into LCX and LAD. 3. The LCX is a large caliber vessel and it is a nondominant vessel. The LCX is angiographically normal. It gives rise into a large OM branch which appeared to have mild disease only. The LCX continued after that as a moderate caliber vessel in the AV groove and gives collateral to the left coronary system. 4. The LAD: The proximal LAD is stented and the stent is patent. The LAD in the proximal portion gives rise into a diagonal branch which seems to have mild disease only. The mid LAD is normal and gives rise into a second and third diagonal branch and both appeared to be angiographically normal and the LAD distally appeared to be normal. Extensive left to right collaterals seen filling the right coronary artery all the way to the midportion. 5. HEMODYNAMICS: The LVEDP was 12 mmHg without significant gradient across the aortic valve. CONCLUSION: 1. Chronic total occlusion of the RCA in the proximal portion. The RCA fills by bridging collaterals from the left coronary system filling the RCA all the way to the midportion. 2. Patent stent in the proximal left anterior descending artery. 3. Mild disease involving the left circumflex coronary artery. POSTPROCEDURE MANAGEMENT: 1. Consider maximized medical treatment at this point of time. 2. If the patient continues to be symptomatic, we can assess for viability in the anterior wall and if the inferior wall is viable, she might benefit from PCI of the CORE SETTER of the right. MMODL / IJN: [id number] /
[2020-06-29] MEDS ORDERED: HYDROcodone/APAP 10-325MG 1 EACH TAB PO ONE (17:34)
== END 2020-06-29 18:35 | disposition home or self-care (01) ==
LOC: CATHCVL 10:05
PROVIDERS: ATTEND Internal Medicine Interventional Cardiology
DX: I25.110 Atherosclerotic heart disease of native coronary artery with unstable angina pectoris (principal); I25.82 Chronic total occlusion of coronary artery; R06.02 Shortness of breath; R07.89 Other chest pain; I10 Essential (primary) hypertension; E11.9 Type 2 diabetes mellitus without complications; E78.5 Hyperlipidemia, unspecified; R01.1 Cardiac murmur, unspecified; Z95.5 Presence of coronary angioplasty implant and graft; Z79.899 Other long term (current) drug therapy; Z79.82 Long term (current) use of aspirin; Z79.84 Long term (current) use of oral hypoglycemic drugs; Z79.891 Long term (current) use of opiate analgesic; Z79.1 Long term (current) use of non-steroidal anti-inflammatories (NSAID); Z79.01 Long term (current) use of anticoagulants; Z88.2 Allergy status to sulfonamides; Z82.49 Family history of ischemic heart disease and other diseases of the circulatory system
CPT/HCPCS: 93458; 80048; 85025; C1769; C1894; J2250; J2001; J1170; Q9967

== ENCOUNTER 2020-07-20 17:33 | Emergency (ER) | payer MEDICARE ==
[2020-07-20 17:42] VITALS: RESP 18
[2020-07-20] MEDS ORDERED: MORPHINE SULFATE 4 MG/ML SYRINGE IM STA (18:19)
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
--- NOTE | 2020-07-20 19:35 | XR ---
EXAMINATION TYPE: XR ribs RT w pa chest xray DATE OF EXAM: 07/20/2020 COMPARISON: NONE HISTORY: Pain TECHNIQUE: 5 views FINDINGS: Heart is normal. There is some coarsening of interstitial markings. Thoracic aorta is ather omatous. There is some arthritic change in the right shoulder joint. There is no pleural effusion or pneumothorax. I see no evidence of a rib fracture. IMPRESSION: No active cardiopulmonary disease. Mild pulmonary fibrotic changes. No rib fracture seen.
--- NOTE | 2020-07-20 19:36 | XR ---
EXAMINATION TYPE: XR shoulder complete RT DATE OF EXAM: 07/20/2020 COMPARISON: NONE HISTORY: Pain TECHNIQUE: 3 views FINDINGS: There is narrowing of the glenohumeral joint space. There is spurring of the humeral head a nd the glenoid. I see no fracture nor dislocation. IMPRESSION: Osteoarthritis. No fracture seen.
--- NOTE | 2020-07-20 19:37 | XR ---
EXAMINATION TYPE: XR clavicle RT DATE OF EXAM: 07/20/2020 COMPARISON: NONE HISTORY: Pain TECHNIQUE: 2 views FINDINGS: I see no fracture nor dislocation. There is some spurring at the AC joint. There is osteoar thritis at the glenohumeral joint. IMPRESSION: No fracture seen.
--- NOTE | 2020-07-20 19:48 | XR ---
EXAMINATION TYPE: XR Hip Bilateral and AP pelvis DATE OF EXAM: 07/20/2020 COMPARISON: NONE HISTORY: Fall. Pain. TECHNIQUE: 6 views FINDINGS: Pelvic ring is intact. There is bilateral hip prosthesis. Sacroiliac joints appear intact. Prosthesis appears in anatomic position. IMPRESSION: No acute abnormality of the pelvis and both hips. No fracture seen. Pelvis not changed co mpared to 09/30/2017.
--- NOTE | 2020-07-20 20:07 | XR ---
EXAMINATION TYPE: XR hand complete RT DATE OF EXAM: 07/20/2020 COMPARISON: NONE HISTORY: Trauma. Pain. TECHNIQUE: 3 views FINDINGS: There is significant narrowing and spurring of the IP joints of all of the fingers. There a re erosions. This is consistent with advanced erosive type osteoarthritis. There is relative sparing of the MP joints. There is moderately severe osteoarthritis at the first carpometacarpal joint. IMPRESSION: Advanced osteoarthritis with some features of erosive type osteoarthritis. No fracture se en.
[2020-07-20] MEDS ORDERED: ACET/COD 300 MG/30 MG STARTER PACK 6 TAB BTL PO STA (20:14)
[2020-07-20] MEDS ORDERED: IBUPROFEN 600 MG STARTER PACK 4 TAB BTL PO STA (20:14)
[2020-07-20 20:37] VITALS: PULSE 60
[2020-07-20 20:40] VITALS: BP 130/81; TEMP 97.6
== END 2020-07-20 20:26 | disposition home or self-care (01) ==
LOC: EC 17:33
DX: M62.89 Other specified disorders of muscle (principal); M25.511 Pain in right shoulder; M54.2 Cervicalgia; R10.2 Pelvic and perineal pain; J45.909 Unspecified asthma, uncomplicated; I25.119 Atherosclerotic heart disease of native coronary artery with unspecified angina pectoris; E11.9 Type 2 diabetes mellitus without complications; M79.7 Fibromyalgia; E78.5 Hyperlipidemia, unspecified; I10 Essential (primary) hypertension; M06.9 Rheumatoid arthritis, unspecified; G89.29 Other chronic pain; M54.9 Dorsalgia, unspecified; Z88.2 Allergy status to sulfonamides; Z88.1 Allergy status to other antibiotic agents; Z79.51 Long term (current) use of inhaled steroids; Z79.899 Other long term (current) drug therapy; Z79.891 Long term (current) use of opiate analgesic; Z79.84 Long term (current) use of oral hypoglycemic drugs; Z79.82 Long term (current) use of aspirin; Z95.5 Presence of coronary angioplasty implant and graft; Z96.643 Presence of artificial hip joint, bilateral
CPT/HCPCS: 96372; 99284; 71101; 73521; 73000; 73030; 73130; 72125; 70450; J2270

== ENCOUNTER 2021-01-14 14:24 | Observation (INO) | payer MEDICARE ==
[2021-01-14 14:38] LABS: Glucose,Whole Blood 90 mg/dL (75-99)
--- NOTE | 2021-01-14 14:42 | ED ---
General Adult HPI - General Chief complaint: Altered Mental Status Stated complaint: Fall, altered Time Seen by Provider: 01/14/21 14:24 Source: EMS, RN notes reviewed, old records reviewed Mode of arrival: EMS Limitations: altered mental status - History of Present Illness Initial comments: This is a 70-year-old female who presents emergency Department after she was found unresponsive. Patient was at a facility to get an MRI she went to the bathroom they heard a bang in the bathroom and found the patient on the ground unresponsive. Patient will denies to her name and look at you but then immediately closer eyes she follows some very simple commands occasionally. Patient is unable to give any further history and EMS was no further history. Gil vicente did state that she was not on any blood thinners. - Related Data Home Medications Medication Instructions Recorded Confirmed Bisoprolol Fumarate [Zebeta] 10 mg PO DAILY 05/12/14 01/14/21 Fenofibrate,Micronized 200 mg PO DAILY 05/12/14 01/14/21 [Fenofibrate] Gabapentin [Neurontin] 600 mg PO TID 05/12/14 01/14/21 Isosorbide Mononitrate ER [Imdur] 30 mg PO DAILY 05/12/14 01/14/21 Lansoprazole [Prevacid] 30 mg PO BID 05/12/14 01/14/21 Montelukast [Singulair] 10 mg PO HS 05/12/14 01/14/21 Oxybutynin Chloride [Ditropan XL] 10 mg PO BID 05/12/14 01/14/21 Albuterol Nebulized [Ventolin 2.5 mg INHALATION RT-QID PRN 02/23/16 01/14/21 Nebulized] FLUoxetine HCL [PROzac] 20 mg PO BID 02/23/16 01/14/21 Folic Acid 1 mg PO DAILY 02/23/16 01/14/21 HYDROcodone/APAP 10-325MG [Boaz 1 - 2 tab PO Q4H PRN 02/23/16 01/14/21 10-325] amLODIPine BESYLATE [Amlodipine 10 mg PO DAILY 02/23/16 01/14/21 Besylate] glipiZIDE [Glucotrol XL] 5 mg PO DAILY 02/23/16 01/14/21 traZODone HCL [Desyrel] 100 - 200 mg PO HS PRN 02/23/16 01/14/21 DULoxetine HCL [Cymbalta] 60 mg PO BID 08/09/16 01/14/21 Ergocalciferol [Vitamin D2 50,000 unit PO Q7D 06/23/17 01/14/21 (DRISDOL)] Methotrexate 25mg/Iml 0.8 ml SQ Q7D 12/30/18 01/14/21 Aspirin [[place] Aspirin EC] 81 mg PO DAILY 12/28/19 01/14/21 Ibuprofen [Motrin] 800 mg PO Q8H PRN 12/28/19 01/14/21 Albuterol Sulfate [Proair Hfa] 2 puff INHALATION RT-Q6H PRN 01/14/21 01/14/21 Ascorbic Acid [Vitamin C] 1,000 mg PO DAILY 01/14/21 01/14/21 Fluticasone Nasal Girdler [Flonase 2 spray EA NOSTRIL DAILY PRN 01/14/21 01/14/21 Nasal Girdler] INSULIN ASPART (NovoLOG) [NovoLOG 1 - 6 unit SQ ACHS 01/14/21 01/14/21 (formulary)] Linaclotide [Linzess] 145 mcg PO DAILY 01/14/21 01/14/21 Lisinopril [Zestril] 10 mg PO BID 01/14/21 01/14/21 Menthol [Biofreeze] 1 applic TOPICAL DAILY PRN 01/14/21 01/14/21 Marina-3 Fatty Acids [Marina-3] 1,000 mg PO DAILY 01/14/21 01/14/21 Ranolazine [Ranolazine ER] 1,000 mg PO BID 01/14/21 01/14/21 Rosuvastatin [Crestor] 20 mg PO HS 01/14/21 01/14/21 Velvachol Cream 1 applic TOPICAL DAILY PRN 01/14/21 01/14/21 methocarbamoL [Robaxin] 500 mg PO QID PRN 01/14/21 01/14/21 valACYclovir HCL [Valtrex] 1,000 mg PO BID PRN 01/14/21 01/14/21 Allergies Allergy/AdvReac Type Severity Reaction Status Date / Time sulfamethoxazole Allergy Rash/Hives Verified 01/14/21 15:49 [From Bactrim] trimethoprim [From Bactrim] Allergy Rash/Hives Verified 01/14/21 15:49 Review of Systems ROS Statement: Those systems with pertinent positive or pertinent negative responses have been documented in the HPI. ROS Other: All systems not noted in ROS Statement are negative. Past Medical History Past Medical History: Asthma, Coronary Artery Disease (CAD), Chest Pain / Angina, CVA/TIA, Diabetes Mellitus, Deep Vein Thrombosis (DVT), Fibromyalgia, Hyperlipidemia, Hypertension, Osteoarthritis (OA), Rheumatoid Arthritis (RA) Additional Past Medical History / Comment(s): LUPUS. STATES WAS TOLD HAD "SILENT CVA". BLE DVT, CHRONIC BACK PAIN. TIA. History of Any Multi-Drug Resistant Organisms: None Reported Past Surgical History: Back Surgery, Heart Catheterization With Stent, Hysterectomy, Joint Replacement, Orthopedic Surgery Additional Past Surgical History / Comment(s): APRIL 07 UMBHERNIA REPAIR (DR. ORELLANA) @ [facility]. RIGHT FOOT, TOTAL RIGHT ANKLE, BILAT JEANIE, COLONOSCOPY/EGD Past Anesthesia/Blood Transfusion Reactions: No Reported Reaction Additional Past Anesthesia/Blood Transfusion Reaction / Comment(s): Disoriented with anesthesia. Date of Last Stent Placement:: 04/25/17 Past Psychological History: Depression Smoking Status: Never smoker Past Alcohol Use History: Rare Past Drug Use History: None Reported - Past Family History Mother Family Medical History: Cancer, Coronary Artery Disease (CAD), Rheumatoid Arthritis (RA) Additional Family Medical History / Comment(s): LUNG CANCER Father Family Medical History: Cancer Additional Family Medical History / Comment(s): lung General Exam - General Exam Comments Initial Comments: GENERAL: Patient is well-developed and well-nourished. Patient is nontoxic and well- hydrated and is in no acute distress. ENT: Neck is soft and supple. No significant lymphadenopathy is noted. Oropharynx is clear. Moist mucous membranes. Neck has full range of motion without eliciting any pain. EYES: The sclera were anicteric and conjunctiva were pink and moist. Difficult to assess extraocular motions because she does not follows commands. Eyelids were unremarkable. PULMONARY: Unlabored respirations. Good breath sounds bilaterally. No audible rales rhonchi or wheezing was noted. CARDIOVASCULAR: There is a regular rate and rhythm without any murmurs gallops or rubs. ABDOMEN: Soft and nontender with normal bowel sounds. SKIN: Skin is clear with no lesions or rashes and otherwise unremarkable. NEUROLOGIC: Patient is alert and oriented 1. Cranial nerves II through XII are grossly intact. Motor and sensory are also intact. Normal speech, volume and content. Symmetrical smile. MUSCULOSKELETAL: Normal extremities with adequate strength and full range of motion. LYMPHATICS: No significant lymphadenopathy is noted PSYCHIATRIC: Unable to assess Limitations: altered mental status Course Vital Signs 01/14/21 01/14/21 01/14/21 14:26 14:44 14:57 Temperature 98.0 F Pulse Rate 74 67 Respiratory 16 16 16 Rate Blood Pressure 101/67 100/58 O2 Sat by Pulse 84 L 96 Oximetry 01/14/21 01/14/21 01/14/21 16:29 16:30 17:39 Temperature Pulse Rate 67 67 Respiratory 16 16 16 Rate Blood Pressure 122/79 130/82 O2 Sat by Pulse 96 98 Oximetry 01/14/21 18:10 Temperature Pulse Rate 64 Respiratory 16 Rate Blood Pressure 135/78 O2 Sat by Pulse 99 Oximetry Medical Decision Making - Medical Decision Making EKG shows normal sinus rhythm at 72 bpm ID interval 182 QRS is under 2 QT interval is 426 QTC is 466. Chest x-ray shows shows questionable patch in place. CT of the brain and C-spine showed no acute normalities. Patient responded to Narcan 1 mg early however when it was repeated later she did not respond to that dose of Narcan. Family states she is not on any benzodiazepines but in the past she has taken them prior to taking in an MRI and so is possible she took some on her own without them knowing it. Patient was positive for opiates and benzodiazepines - Lab Data Result diagrams: 01/14/21 14:56 01/14/21 14:56 Lab Results 01/14/21 01/14/21 01/14/21 Range/Units 14:29 14:56 14:56 WBC 7.1 (3.8-10.6) k/uL RBC 3.82 (3.80-5.40) m/uL Hgb 13.0 (11.4-16.0) gm/dL Hct 37.7 (34.0-46.0) % MCV 98.6 (80.0-100.0) fL MCH 34.0 (25.0-35.0) pg MCHC 34.5 (31.0-37.0) g/dL RDW 14.3 (11.5-15.5) % Plt Count 208 (150-450) k/uL MPV 7.9 Neutrophils % 60 % Lymphocytes % 26 % Monocytes % 7 % Eosinophils % 5 % Basophils % 1 % Neutrophils # 4.3 (1.3-7.7) k/uL Lymphocytes # 1.8 (1.0-4.8) k/uL Monocytes # 0.5 (0-1.0) k/uL Eosinophils # 0.4 (0-0.7) k/uL Basophils # 0.0 (0-0.2) k/uL PT 10.7 (9.0-12.0) sec INR 1.0 (<1.2) APTT 21.1 L (22.0-30.0) sec Sodium (137-145) mmol/L Potassium (3.5-5.1) mmol/L Chloride (98-107) mmol/L Carbon Dioxide (22-30) mmol/L Anion Gap mmol/L BUN (7-17) mg/dL Creatinine (0.52-1.04) mg/dL Est GFR (CKD-EPI)AfAm (>60 ml/min/1.73 sqM) Est GFR (CKD-EPI)NonAf (>60 ml/min/1.73 sqM) Glucose (74-99) mg/dL POC Glucose (mg/dL) 90 (75-99) mg/dL POC Glu Machine Records Units Supervisor ID Eri Terrell Calcium (8.4-10.2) mg/dL Total Bilirubin (0.2-1.3) mg/dL AST (14-36) U/L ALT (4-34) U/L Alkaline Phosphatase (38-126) U/L Troponin I (0.000-0.034) ng/mL Total Protein (6.3-8.2) g/dL Albumin (3.5-5.0) g/dL Urine Color Urine Appearance (Clear) Urine pH (5.0-8.0) Ur Specific [place] (1.001-1.035) Urine Protein (Negative) Urine Glucose (UA) (Negative) Urine Ketones (Negative) Urine Blood (Negative) Urine Nitrite (Negative) Urine Bilirubin (Negative) Urine Urobilinogen (<2.0) mg/dL Ur Leukocyte Esterase (Negative) Urine Opiates Screen (NotDetected) Ur Oxycodone Screen (NotDetected) Urine Methadone Screen (NotDetected) Ur Propoxyphene Screen (NotDetected) Acetaminophen ug/mL Ur Barbiturates Screen (NotDetected) U Tricyclic Antidepress (NotDetected) Ur Phencyclidine Scrn (NotDetected) Ur Amphetamines Screen (NotDetected) U Methamphetamines Scrn (NotDetected) U Benzodiazepines Scrn (NotDetected) Urine Cocaine Screen (NotDetected) U Marijuana (THC) Screen (NotDetected) 01/14/21 01/14/21 01/14/21 Range/Units 14:56 14:56 14:56 WBC (3.8-10.6) k/uL RBC (3.80-5.40) m/uL Hgb (11.4-16.0) gm/dL Hct (34.0-46.0) % MCV (80.0-100.0) fL MCH (25.0-35.0) pg MCHC (31.0-37.0) g/dL RDW (11.5-15.5) % Plt Count (150-450) k/uL MPV Neutrophils % % Lymphocytes % % Monocytes % % Eosinophils % % Basophils % % Neutrophils # (1.3-7.7) k/uL Lymphocytes # (1.0-4.8) k/uL Monocytes # (0-1.0) k/uL Eosinophils # (0-0.7) k/uL Basophils # (0-0.2) k/uL PT (9.0-12.0) sec INR (<1.2) APTT (22.0-30.0) sec Sodium 138 (137-145) mmol/L Potassium 4.8 (3.5-5.1) mmol/L Chloride 103 (98-107) mmol/L Carbon Dioxide 25 (22-30) mmol/L Anion Gap 10 mmol/L BUN 32 H (7-17) mg/dL Creatinine 0.95 (0.52-1.04) mg/dL Est GFR (CKD-EPI)AfAm 70 (>60 ml/min/1.73 sqM) Est GFR (CKD-EPI)NonAf 61 (>60 ml/min/1.73 sqM) Glucose 89 (74-99) mg/dL POC Glucose (mg/dL) (75-99) mg/dL POC Glu Machine Records Units Supervisor ID Calcium 9.1 (8.4-10.2) mg/dL Total Bilirubin 0.6 (0.2-1.3) mg/dL AST 34 (14-36) U/L ALT 25 (4-34) U/L Alkaline Phosphatase 59 (38-126) U/L Troponin I <0.012 (0.000-0.034) ng/mL Total Protein 6.6 (6.3-8.2) g/dL Albumin 3.8 (3.5-5.0) g/dL Urine Color Urine Appearance (Clear) Urine pH (5.0-8.0) Ur Specific [place] (1.001-1.035) Urine Protein (Negative) Urine Glucose (UA) (Negative) Urine Ketones (Negative) Urine Blood (Negative) Urine Nitrite (Negative) Urine Bilirubin (Negative) Urine Urobilinogen (<2.0) mg/dL Ur Leukocyte Esterase (Negative) Urine Opiates Screen (NotDetected) Ur Oxycodone Screen (NotDetected) Urine Methadone Screen (NotDetected) Ur Propoxyphene Screen (NotDetected) Acetaminophen <10.0 ug/mL Ur Barbiturates Screen (NotDetected) U Tricyclic Antidepress (NotDetected) Ur Phencyclidine Scrn (NotDetected) Ur Amphetamines Screen (NotDetected) U Methamphetamines Scrn (NotDetected) U Benzodiazepines Scrn (NotDetected) Urine Cocaine Screen (NotDetected) U Marijuana (THC) Screen (NotDetected) 01/14/21 Range/Units 16:15 WBC (3.8-10.6) k/uL RBC (3.80-5.40) m/uL Hgb (11.4-16.0) gm/dL Hct (34.0-46.0) % MCV (80.0-100.0) fL MCH (25.0-35.0) pg MCHC (31.0-37.0) g/dL RDW (11.5-15.5) % Plt Count (150-450) k/uL MPV Neutrophils % % Lymphocytes % % Monocytes % % Eosinophils % % Basophils % % Neutrophils # (1.3-7.7) k/uL Lymphocytes # (1.0-4.8) k/uL Monocytes # (0-1.0) k/uL Eosinophils # (0-0.7) k/uL Basophils # (0-0.2) k/uL PT (9.0-12.0) sec INR (<1.2) APTT (22.0-30.0) sec Sodium (137-145) mmol/L Potassium (3.5-5.1) mmol/L Chloride (98-107) mmol/L Carbon Dioxide (22-30) mmol/L Anion Gap mmol/L BUN (7-17) mg/dL Creatinine (0.52-1.04) mg/dL Est GFR (CKD-EPI)AfAm (>60 ml/min/1.73 sqM) Est GFR (CKD-EPI)NonAf (>60 ml/min/1.73 sqM) Glucose (74-99) mg/dL POC Glucose (mg/dL) (75-99) mg/dL POC Glu Machine Records Units Supervisor ID Calcium (8.4-10.2) mg/dL Total Bilirubin (0.2-1.3) mg/dL AST (14-36) U/L ALT (4-34) U/L Alkaline Phosphatase (38-126) U/L Troponin I (0.000-0.034) ng/mL Total Protein (6.3-8.2) g/dL Albumin (3.5-5.0) g/dL Urine Color Yellow Urine Appearance Clear (Clear) Urine pH 6.0 (5.0-8.0) Ur Specific [place] 1.021 (1.001-1.035) Urine Protein Negative (Negative) Urine Glucose (UA) Negative (Negative) Urine Ketones Negative (Negative) Urine Blood Negative (Negative) Urine Nitrite Negative (Negative) Urine Bilirubin Negative (Negative) Urine Urobilinogen <2.0 (<2.0) mg/dL Ur Leukocyte Esterase Negative (Negative) Urine Opiates Screen Detected H (NotDetected) Ur Oxycodone Screen Not Detected (NotDetected) Urine Methadone Screen Not Detected (NotDetected) Ur Propoxyphene Screen Not Detected (NotDetected) Acetaminophen ug/mL Ur Barbiturates Screen Not Detected (NotDetected) U Tricyclic Antidepress Not Detected (NotDetected) Ur Phencyclidine Scrn Not Detected (NotDetected) Ur Amphetamines Screen Not Detected (NotDetected) U Methamphetamines Scrn Not Detected (NotDetected) U Benzodiazepines Scrn Detected H (NotDetected) Urine Cocaine Screen Not Detected (NotDetected) U Marijuana (THC) Screen Not Detected (NotDetected) Disposition Clinical Impression: Altered mental status Disposition: ADMITTED IP TO THIS HOSP Referrals: Elida Baltazar MD [Primary Care Provider] - 1-2 days Time of Disposition: 18:22
[2021-01-14] MEDS ORDERED: NALOXONE 0.4 MG/ML 1 ML VIAL IVP STA ×2 (14:54→16:26)
[2021-01-14] MEDS ORDERED: SODIUM CHLORIDE 0.9% 500 ML 500 ML IV ONE (14:54)
[2021-01-14 15:03] LABS: Basophils % (A) 1 %; Eosinophils # (A) 0.4 k/uL (0-0.7); Eosinophils % (A) 5 %; HCT 37.7 % (34.0-46.0); Lymphocytes # (A) 1.8 k/uL (1.0-4.8); Lymphocytes % (A) 26 %; MCHC 34.5 g/dL (31.0-37.0); MCV 98.6 fL (80.0-100.0); Mean Platelet Volume 7.9; Monocytes # (A) 0.5 k/uL (0-1.0); Monocytes % (A) 7 %; Neutrophils # (A) 4.3 k/uL (1.3-7.7); Neutrophils % (A) 60 %; Platelet Count 208 k/uL (150-450); RBC 3.82 m/uL (3.80-5.40); RDW 14.3 % (11.5-15.5); WBC 7.1 k/uL (3.8-10.6)
[2021-01-14 15:11] LABS: Potassium 4.8 mmol/L (3.5-5.1)
[2021-01-14 15:12] LABS: Albumin 3.8 g/dL (3.5-5.0); Calcium 9.1 mg/dL (8.4-10.2); Total Bilirubin 0.6 mg/dL (0.2-1.3); Total Protein 6.6 g/dL (6.3-8.2)
[2021-01-14 15:21] LABS: Partial Thromboplastin Time 21.1 sec (22.0-30.0); Prothrombin Time 10.7 sec (9.0-12.0)
--- NOTE | 2021-01-14 15:55 | CT ---
EXAMINATION TYPE: CT brain cspine wo con DATE OF EXAM: 01/14/2021 COMPARISON: CT 07/20/2020 HISTORY: Altered mental status. CT DLP: 1362.4 mGycm Automated exposure control for dose reduction was used. TECHNIQUE: CT scan of the head and cervical spine are performed without contrast. FINDINGS: There is motion on the exam. There is no acute intracranial hemorrhage, mass effect, or mi dline shift identified. There are cerebral vascular calcifications present. Abnormal encephalomalacia in the inferior right frontal lobe is stable. Periventricular white matter shows patchy low attenuat ion as on prior exam. The ventricles and sulci are within normal limits in size. The globes are inta ct and the visualized sinuses are clear. Cervical spine is visualized in its entirety from C1 through upper thoracic levels and demonstrates s table alignment without evidence of acute fracture or dislocation. Prevertebral soft tissue appears within normal limits. Multilevel facet arthropathy change, degenerative disc change again noted. The C1-C2 articulation is unremarkable. IMPRESSION: 1. There is no acute fracture or dislocation evident in the cervical spine. 2. No acute intracranial hemorrhage, mass effect, or midline shift is seen.
[2021-01-14 16:23] LABS: Appearance,Urine Clear (Clear); Bilirubin,Urine Negative (Negative); Blood,Urine Negative (Negative); Color,Urine Yellow; Glucose,Urine (UA) Negative (Negative); Ketones,Urine Negative (Negative); Leukocyte Esterase,Urine Negative (Negative); Nitrite,Urine Negative (Negative); Protein,Urine Negative (Negative); Specific Gravity,Urine 1.021 (1.001-1.035); Urobilinogen,Urine <2.0 mg/dL (<2.0)
[2021-01-14 16:33] LABS: Amphetamine Screen,Urine Not Detected (NotDetected); Barbiturate Screen,Urine Not Detected (NotDetected); Benzodiazepines Screen,Urine Detected (NotDetected); Cocaine Screen,Urine Not Detected (NotDetected); Methadone Screen, Urine Not Detected (NotDetected); Opiate Screen,Urine Detected (NotDetected); Oxycodone Screen, Urine Not Detected (NotDetected); Phencyclidine Screen,Urine Not Detected (NotDetected); Tricyclic Antidepressant,Urine Not Detected (NotDetected); Urn Cannabinoid Scrn Not Detected (NotDetected)
--- NOTE | 2021-01-14 16:53 | XR ---
EXAMINATION TYPE: XR chest 2V DATE OF EXAM: 01/14/2021 COMPARISON: Chest x-ray July 20, 2020 HISTORY: Falling injury with pain and weakness. TECHNIQUE: Frontal and lateral views of the chest are obtained. FINDINGS: There is diminished inspiration with new multifocal increased opacities on background pole inspector luis felipe parenchymal change. Persistent cardiomegaly with ectatic aorta. Underlying scoliotic curvature. IMPRESSION: Diminished inspiration with new multifocal opacities on a background cardiomegaly and ch ronic parenchymal changes. Correlate to exclude Covid-19 infection is advised.
[2021-01-14] MEDS ORDERED: IBUPROFEN 800 MG TAB PO PRN (22:43)
[2021-01-14] MEDS ORDERED: HYDROcodone/APAP 10-325MG 1 EACH TAB PO ONE (22:46)
--- NOTE | 2021-01-14 23:51 | P.HPIM ---
History of Present Illness H&P Date: 01/14/21 Chief Complaint: passing out 70 year old female with history of asthma, DM, hypertension , OA patient comes in after passing out at different facility while waiting to get MR I done. patient does not go over details when answering questions, and while she starts to answer the question properly she seems to end up mumbling at the end, and when asked , she steers the conversation or starts complaining that she needs to go to bathroom,. having said that, she seems to be improving compared to initial presentation in the ED, where she was not able to give any history ,. patient does not remember if she took any medications prior to getting the MRI, the incident seems to be vague to her, however, she does recall going to a facility to get a scheduled MRI of her spine due to chronic pain, she takes norco three times a day for her back. then while there, she went to the bathroom, felt some palpitations then passed out. she did not sustain any injury , family members heard a thud and went to check on her and found her unresponsive for which she was brought to the hospital for evaluation , no reports of hypoglycemia , but family was not sure if she has premedicated with benzo prior to her MRI. patient recalls similar episode about two weeks ago, that she discussed with her doctor and was planning on doing some cardiac workup, however, she does not recall any associated SOB, or chest pain , does not recall sweating , or vomiting. she then steers the conversation and focuses on her chronic pain , in her joints , lower back, and 1 year history of chronic right abd pain for which CSCOPe was done and reported to be normal she is showing me some bulging on her right flank which looks gilmore than her left flank. she claims that workup has been done extensively , with no answers to why she experience pain, she denies any bleeding she currently seems alert, follows commands, and communicating better than earlier upon presentation per her RN and ED documentation blood work in the ED unremarkable, COVID negative, vital sings stable , CT head and neck no acute pathology , CXR questionable new opacities. EKG NSR urine drug screen positive for opiates and benzo Review of Systems Pertinent positives as noted in HPI. All other systems were reviewed and are negative Past Medical History Past Medical History: Asthma, Coronary Artery Disease (CAD), Chest Pain / Angina, CVA/TIA, Diabetes Mellitus, Deep Vein Thrombosis (DVT), Fibromyalgia, Hyperlipidemia, Hypertension, Osteoarthritis (OA), Rheumatoid Arthritis (RA) Additional Past Medical History / Comment(s): LUPUS. STATES WAS TOLD HAD "SILENT CVA". BLE DVT, CHRONIC BACK PAIN. TIA. History of Any Multi-Drug Resistant Organisms: None Reported Past Surgical History: Back Surgery, Heart Catheterization With Stent, Hysterectomy, Joint Replacement, Orthopedic Surgery Additional Past Surgical History / Comment(s): APRIL 07 UMBHERNIA REPAIR (DR. ORELLANA) @ [facility]. RIGHT FOOT, TOTAL RIGHT ANKLE, BILAT JEANIE, COLONOSCOPY/EGD Past Anesthesia/Blood Transfusion Reactions: No Reported Reaction Additional Past Anesthesia/Blood Transfusion Reaction / Comment(s): Disoriented with anesthesia. Date of Last Stent Placement:: 04/25/17 Past Psychological History: Depression Smoking Status: Never smoker Past Alcohol Use History: Rare Past Drug Use History: None Reported - Past Family History Mother Family Medical History: Cancer, Coronary Artery Disease (CAD), Rheumatoid Arthritis (RA) Additional Family Medical History / Comment(s): LUNG CANCER Father Family Medical History: Cancer Additional Family Medical History / Comment(s): lung Medications and Allergies Home Medications Medication Instructions Recorded Confirmed Type Bisoprolol Fumarate [Zebeta] 10 mg PO DAILY 05/12/14 01/14/21 History Fenofibrate,Micronized 200 mg PO DAILY 05/12/14 01/14/21 History [Fenofibrate] Gabapentin [Neurontin] 600 mg PO TID 05/12/14 01/14/21 History Isosorbide Mononitrate ER [Imdur] 30 mg PO DAILY 05/12/14 01/14/21 History Lansoprazole [Prevacid] 30 mg PO BID 05/12/14 01/14/21 History Montelukast [Singulair] 10 mg PO HS 05/12/14 01/14/21 History Oxybutynin Chloride [Ditropan XL] 10 mg PO BID 05/12/14 01/14/21 History Albuterol Nebulized [Ventolin 2.5 mg INHALATION RT-QID PRN 02/23/16 01/14/21 History Nebulized] FLUoxetine HCL [PROzac] 20 mg PO BID 02/23/16 01/14/21 History Folic Acid 1 mg PO DAILY 02/23/16 01/14/21 History HYDROcodone/APAP 10-325MG [[place] 1 - 2 tab PO Q4H PRN 02/23/16 01/14/21 History 10-325] amLODIPine BESYLATE [Amlodipine 10 mg PO DAILY 02/23/16 01/14/21 History Besylate] glipiZIDE [Glucotrol XL] 5 mg PO DAILY 02/23/16 01/14/21 History traZODone HCL [Desyrel] 100 - 200 mg PO HS PRN 02/23/16 01/14/21 History DULoxetine HCL [Cymbalta] 60 mg PO BID 08/09/16 01/14/21 History Ergocalciferol [Vitamin D2 50,000 unit PO Q7D 06/23/17 01/14/21 History (DRISDOL)] Methotrexate 25mg/Iml 0.8 ml SQ Q7D 12/30/18 01/14/21 History Aspirin [[place] Aspirin EC] 81 mg PO DAILY 12/28/19 01/14/21 History Ibuprofen [Motrin] 800 mg PO Q8H PRN 12/28/19 01/14/21 History Albuterol Sulfate [Proair Hfa] 2 puff INHALATION RT-Q6H PRN 01/14/21 01/14/21 History Ascorbic Acid [Vitamin C] 1,000 mg PO DAILY 01/14/21 01/14/21 History Fluticasone Nasal [place] [Flonase 2 spray EA NOSTRIL DAILY PRN 01/14/21 01/14/21 History Nasal [place]] INSULIN ASPART (NovoLOG) [NovoLOG 1 - 6 unit SQ ACHS 01/14/21 01/14/21 History (formulary)] Linaclotide [Linzess] 145 mcg PO DAILY 01/14/21 01/14/21 History Lisinopril [Zestril] 10 mg PO BID 01/14/21 01/14/21 History Menthol [Biofreeze] 1 applic TOPICAL DAILY PRN 01/14/21 01/14/21 History [place]-3 Fatty Acids [[place]-3] 1,000 mg PO DAILY 01/14/21 01/14/21 History Ranolazine [Ranolazine ER] 1,000 mg PO BID 01/14/21 01/14/21 History Rosuvastatin [Crestor] 20 mg PO HS 01/14/21 01/14/21 History Velvachol Cream 1 applic TOPICAL DAILY PRN 01/14/21 01/14/21 History methocarbamoL [Robaxin] 500 mg PO QID PRN 01/14/21 01/14/21 History valACYclovir HCL [Valtrex] 1,000 mg PO BID PRN 01/14/21 01/14/21 History Allergies Allergy/AdvReac Type Severity Reaction Status Date / Time sulfamethoxazole Allergy Rash/Hives Verified 01/14/21 15:49 [From Bactrim] trimethoprim [From Bactrim] Allergy Rash/Hives Verified 01/14/21 15:49 Physical Exam Vitals: Vital Signs Temp Pulse Resp BP Pulse Ox 01/14/21 20:43 80 16 144/84 95 01/14/21 18:10 64 16 135/78 99 01/14/21 17:39 67 16 130/82 98 01/14/21 16:30 67 16 122/79 96 01/14/21 16:29 16 01/14/21 14:57 16 01/14/21 14:44 67 16 100/58 96 01/14/21 14:26 98.0 F 74 16 101/67 84 L Intake and Output 01/14/21 01/14/21 01/14/21 06:59 14:59 22:59 Other: Weight 90.718 kg Constitutional: No acute distress, conversant, pleasant Eyes: Anicteric sclerae, moist conjunctiva, Pupils equal round reactive to light ENMT: NC/AT Oropharynx clear, no erythema, or exudates Neck: Supple, FROM, no masses, or JVD No carotid bruits No thyromegaly Lungs: Clear to auscultation Clear to percussion Normal respiratory effort, no accessory muscle use Cardiovascular: Heart regular in rate and rhythm, No murmurs, gallops, or rubs No peripheral edema Abdominal: Soft ` discomfort to deep palpation over right flank, no guarding, rebound or rigidity Abdomen moving with respiration Normoactive bowel sounds No hepatomegaly, No splenomegaly No palpable mass No abdominal wall hernia noted superficial ulcerating papules over suprapubic region , no drainage no bleeding , minimal surrounding erythema , patient claims this is due to her cat scratching her Skin: Normal temperature, tone, texture, turgor No induration No subcutaneous nodules No rash, lesions No ulcers Extremities: No digital cyanosis No clubbing Pedal pulses intact and symmetrical Radial pulses intact and symmetrical No calf tenderness Psychiatric: Alert and oriented to person, place and time Appropriate affect fair judgement Neuro Muscles Strength 4/5 in all 4 extremities Sensation to light touch grossly present throughout Cranial nerves II-XII grossly intact No focal sensory deficits Lymphatics: no palpable cervical or supraclavicular , or inguinal lymph nodes Results CBC & Chem 7: 01/14/21 14:56 01/14/21 14:56 Labs: Abnormal Lab Results - Last 24 Hours (Table) 01/14/21 01/14/21 01/14/21 Range/Units 14:56 14:56 16:15 APTT 21.1 L (22.0-30.0) sec BUN 32 H (7-17) mg/dL Urine Opiates Screen Detected H (NotDetected) U Benzodiazepines Scrn Detected H (NotDetected) Assessment and Plan Assessment: syncope acute metabolic encephalopathy , improving , possibly medication side effect cardiac monitoring EKG NSR CT head and neck no acute pathology blood work unremarkable urine drug screen positive for opiates and benzo neuro checks neuro consult cardio consult swallow eval chronic condition DM , insulin sliding scale hypertension , resume home meds with hold parameters hyperlipidemia , resume statin OA , norco PRN H/O CAD resume cardiac meds chronic abd pain , consider OP follow up CODE STATUS:full code DVT prophylaxis: mechanical Discussed with: Patient, ER, RN Anticipated length of stay < than [address]: pending clinical eval A total of 75 minutes was spent on the care of this complex patient more than 50% of the time was spent in counseling and care coordination.
[2021-01-15 07:46] LABS: Glucose,Whole Blood 77 mg/dL (75-99)
[2021-01-15 07:58] VITALS: RESP 18; TEMP 97.7
[2021-01-15] MEDS: INSULIN ASPART (NovoLOG) 100 UNIT/ML VIAL SQ SCH ×2 (08:42→11:34)
[2021-01-15] MEDS ORDERED: PANTOPRAZOLE 40 MG TABLET PO SCH (09:00)
[2021-01-15] MEDS ORDERED: RANOLAZINE 500 MG TAB.ER.12H PO SCH (09:00)
[2021-01-15] MEDS ORDERED: ISOSORBIDE MONONITRATE ER 30 MG TAB.ER.24H PO SCH (09:00)
[2021-01-15] MEDS ORDERED: OXYBUTYNIN 10 MG TAB.ER.24 PO SCH (09:00)
[2021-01-15] MEDS ORDERED: FLUoxetine HCL 20 MG CAP PO SCH (09:00)
[2021-01-15] MEDS ORDERED: BISOPROLOL 5 MG TAB PO SCH (09:00)
[2021-01-15] MEDS ORDERED: amLODIPine 10 MG TAB PO SCH (09:00)
[2021-01-15] MEDS ORDERED: FOLIC ACID 1 MG TAB PO SCH (09:00)
[2021-01-15] MEDS ORDERED: ASPIRIN 81 MG PO SCH (09:00)
[2021-01-15] MEDS ORDERED: GABAPENTIN 300 MG CAP PO SCH (09:00)
[2021-01-15] MEDS ORDERED: DULoxetine HCL 60 MG CAPSULE.DR PO SCH (09:00)
[2021-01-15] MEDS ORDERED: lisinopriL 10 MG TAB PO SCH (09:00)
[2021-01-15] MEDS ORDERED: HYDROcodone/APAP 10-325MG 1 EACH TAB PO PRN (09:18)
[2021-01-15 09:53] VITALS: BP 135/89; PULSE 74
--- NOTE | 2021-01-15 11:17 | P.CRDCN ---
History of Present Illness History of present illness: HISTORY OF PRESENTING ILLNESS This is a pleasant 70-year-old patient female past medical history significant for coronary artery disease with prior stenting of the LAD in 04/2017 and known chronic total occlusion of the RCA, CVA/TIA, type 2 diabetes, hypertension, hyperlipidemia. She follows in the office with Dr. Castillo. We have been asked to see in consultation for syncope. Patient states that she was getting an outpatient MRI of her spine for chronic pain, and had a syncopal episode. Patient states that she took a medication that started with an L, Flexeril and her Whitmer before she went to the MRI appointment. Her syncopal episode happen before MRI. Patient does not remember what happened she just said that she was on the ground. Patient is seen and examined at bedside, walking in the room. Patient no apparent distress. Denies chest pain, palpitations, lower extremity edema, lightheadedness, dizziness. Patient denies symptoms of orthopnea, shortness of breath, PND. Patient denies history of smoking, alcohol use, illicit drugs. Laboratory data reviewed, sodium 138, potassium 4.8, creatinine 0.95, troponin negative 1, BNP is 86, urine drug screen positive for opiates and benzos. Covid-19 negative. Vital signs blood pressure 135/89, heart rate 74, patient with adequate oxygen saturations on room air. Current home cardiac medications include lisinopril 10 mg twice a day, Imdur 30 mg daily, amlodipine 10 mg daily, aspirin 81 mg daily, Bisoprolol 10mg daily. DIAGNOSTICS Most recent Cardiac catheterization 06/29/20chronic total occlusion of the RCA in the proximal portion. Patent stent in the proximal LAD. Mild disease involving the left circumflex coronary artery. Most recent Echo 12/2019 normal EF, mild TR, moderate LVH, mild MR, mild/moderate and mild pulmonary hypertension Most recent Stress test 12/2019- Lexiscan- fixed defect in the basal inferior wall EKG reveals normal sinus rhythm, with no acute ST-T wave abnormalities Telemetry tracings indicate sinus rhythm. Chest xray new multifocal opacities REVIEW OF SYSTEMS At the time of my exam: CONSTITUTIONAL: Denies fever or chills. CARDIOVASCULAR: Denies chest pain, shortness of breath, orthopnea, PND or palpitations. RESPIRATORY: Denies cough. GASTROINTESTINAL: Denies abdominal pain, diarrhea, constipation, nausea or vomiting. MUSCULOSKELETAL: Denies myalgias. NEUROLOGIC: Denies numbness, tingling, headache or weakness. ENDOCRINE: Denies fatigue, weight change, polydipsia or polyurina. GENITOURINARY: Denies burning, hematuria or urgency with micturation. HEMATOLOGIC: Denies history of anemia or bleeding. PHYSICAL EXAMINATION CONSTITUTIONAL: No apparent distress. HEENT: Head is normocephalic. Pupils are equal, round. Sclerae anicteric. Mucous membranes of the mouth are moist. No JVD. No carotid bruit. CHEST EXAMINATION: Lungs are clear to auscultation. No chest wall tenderness is noted on palpation or with deep breathing. HEART EXAMINATION: Regular rate and rhythm. S1, S2 heard. No murmurs, gallops or rub. ABDOMEN: Soft, nontender. Positive bowel sounds. EXTREMITIES: 2+ peripheral pulses, no lower extremity edema and no calf tenderness. SKIN: intact NEUROLOGIC EXAMINATION: Patient is awake, alert and oriented x3. ASSESSMENT -Coronary artery disease with prior stenting of the LAD in 04/2017 and known chronic total occlusion of the RCA -CVA/TIA -Type 2 diabetes -Hypertension -Hyperlipidemia -Syncope- most likely medication induced related to taking flexeril, Whitmer, and another medication before her MRI. Patient has improved. PLAN -Will obtain orthostatic vital signs and 2D echo. If normal, ok to be discharged from a cardiac perspective. Patient states she has a follow up appointment in [address] Castillo. Patient can follow up as scheduled in the clinic. Nurse Practitioner note has been reviewed, I agree with a documented findings and plan of care. Patient was seen and examined. Past Medical History Past Medical History: Asthma, Coronary Artery Disease (CAD), Chest Pain / Angina, CVA/TIA, Diabetes Mellitus, Deep Vein Thrombosis (DVT), Fibromyalgia, Hyperlipidemia, Hypertension, Osteoarthritis (OA), Rheumatoid Arthritis (RA) Additional Past Medical History / Comment(s): LUPUS. STATES WAS TOLD HAD "SILENT CVA". BLE DVT, CHRONIC BACK PAIN. TIA. History of Any Multi-Drug Resistant Organisms: None Reported Past Surgical History: Back Surgery, Heart Catheterization With Stent, Hysterectomy, Joint Replacement, Orthopedic Surgery Additional Past Surgical History / Comment(s): APRIL 07 UMBHERNIA REPAIR (DR. ORELLANA) @ [facility]. RIGHT FOOT, TOTAL RIGHT ANKLE, BILAT JEANIE, COLONOSCOPY/EGD Past Anesthesia/Blood Transfusion Reactions: No Reported Reaction Additional Past Anesthesia/Blood Transfusion Reaction / Comment(s): Disoriented with anesthesia. Date of Last Stent Placement:: 04/25/17 Past Psychological History: Depression Smoking Status: Never smoker Past Alcohol Use History: Rare Past Drug Use History: None Reported - Past Family History Mother Family Medical History: Cancer, Coronary Artery Disease (CAD), Rheumatoid Arthritis (RA) Additional Family Medical History / Comment(s): LUNG CANCER Father Family Medical History: Cancer Additional Family Medical History / Comment(s): lung Medications and Allergies Home Medications Medication Instructions Recorded Confirmed Type Bisoprolol Fumarate [Zebeta] 10 mg PO DAILY 05/12/14 01/14/21 History Fenofibrate,Micronized 200 mg PO DAILY 05/12/14 01/14/21 History [Fenofibrate] Gabapentin [Neurontin] 600 mg PO TID 05/12/14 01/14/21 History Isosorbide Mononitrate ER [Imdur] 30 mg PO DAILY 05/12/14 01/14/21 History Lansoprazole [Prevacid] 30 mg PO BID 05/12/14 01/14/21 History Montelukast [Singulair] 10 mg PO HS 05/12/14 01/14/21 History Oxybutynin Chloride [Ditropan XL] 10 mg PO BID 05/12/14 01/14/21 History Albuterol Nebulized [Ventolin 2.5 mg INHALATION RT-QID PRN 02/23/16 01/14/21 History Nebulized] FLUoxetine HCL [PROzac] 20 mg PO BID 02/23/16 01/14/21 History Folic Acid 1 mg PO DAILY 02/23/16 01/14/21 History HYDROcodone/APAP 10-325MG [[place] 1 - 2 tab PO Q4H PRN 02/23/16 01/14/21 History 10-325] amLODIPine BESYLATE [Amlodipine 10 mg PO DAILY 02/23/16 01/14/21 History Besylate] glipiZIDE [Glucotrol XL] 5 mg PO DAILY 02/23/16 01/14/21 History traZODone HCL [Desyrel] 100 - 200 mg PO HS PRN 02/23/16 01/14/21 History DULoxetine HCL [Cymbalta] 60 mg PO BID 08/09/16 01/14/21 History Ergocalciferol [Vitamin D2 50,000 unit PO Q7D 06/23/17 01/14/21 History (DRISDOL)] Methotrexate 25mg/Iml 0.8 ml SQ Q7D 12/30/18 01/14/21 History Aspirin [[place] Aspirin EC] 81 mg PO DAILY 12/28/19 01/14/21 History Ibuprofen [Motrin] 800 mg PO Q8H PRN 12/28/19 01/14/21 History Albuterol Sulfate [Proair Hfa] 2 puff INHALATION RT-Q6H PRN 01/14/21 01/14/21 History Ascorbic Acid [Vitamin C] 1,000 mg PO DAILY 01/14/21 01/14/21 History Fluticasone Nasal [place] [Flonase 2 spray EA NOSTRIL DAILY PRN 01/14/21 01/14/21 History Nasal [place]] INSULIN ASPART (NovoLOG) [[place] 1 - 6 unit SQ ACHS 01/14/21 01/14/21 History (formulary)] Linaclotide [Linzess] 145 mcg PO DAILY 01/14/21 01/14/21 History Lisinopril [Zestril] 10 mg PO BID 01/14/21 01/14/21 History Menthol [Biofreeze] 1 applic TOPICAL DAILY PRN 01/14/21 01/14/21 History [place]-3 Fatty Acids [[place]-3] 1,000 mg PO DAILY 01/14/21 01/14/21 History Ranolazine [Ranolazine ER] 1,000 mg PO BID 01/14/21 01/14/21 History Rosuvastatin [Crestor] 20 mg PO HS 01/14/21 01/14/21 History Velvachol Cream 1 applic TOPICAL DAILY PRN 01/14/21 01/14/21 History methocarbamoL [Robaxin] 500 mg PO QID PRN 01/14/21 01/14/21 History valACYclovir HCL [Valtrex] 1,000 mg PO BID PRN 01/14/21 01/14/21 History Allergies Allergy/AdvReac Type Severity Reaction Status Date / Time sulfamethoxazole Allergy Rash/Hives Verified 01/14/21 15:49 [From Bactrim] trimethoprim [From Bactrim] Allergy Rash/Hives Verified 01/14/21 15:49 Physical Exam Vitals: Vital Signs Temp Pulse Pulse Resp BP BP BP 01/15/21 09:52 74 159/93 01/15/21 09:51 65 01/15/21 07:58 97.7 F 50 L 18 183/89 01/15/21 02:28 98.1 F 61 157/85 01/14/21 21:27 98.3 F 63 150/77 01/14/21 21:23 16 01/14/21 20:43 80 16 144/84 01/14/21 18:10 64 16 135/78 01/14/21 17:39 67 16 130/82 01/14/21 16:30 67 16 122/79 01/14/21 16:29 16 01/14/21 14:57 16 01/14/21 14:44 67 16 100/58 01/14/21 14:26 98.0 F 74 16 101/67 BP BP Pulse Ox 01/15/21 09:52 135/89 01/15/21 09:51 151/83 01/15/21 07:58 97 01/15/21 02:28 92 L 01/14/21 21:27 93 L 01/14/21 21:23 01/14/21 20:43 95 01/14/21 18:10 99 01/14/21 17:39 98 01/14/21 16:30 96 01/14/21 16:29 01/14/21 14:57 01/14/21 14:44 96 01/14/21 14:26 84 L Intake and Output 01/14/21 01/15/21 01/15/21 22:59 06:59 14:59 Other: Voiding Method Bedpan # Voids 3 Weight 90.718 kg Results 01/14/21 14:56 01/14/21 14:56 Cardiac Enzymes 01/14/21 01/14/21 Range/Units 14:56 14:56 AST 34 (14-36) U/L Troponin I <0.012 (0.000-0.034) ng/mL Coagulation 01/14/21 Range/Units 14:56 PT 10.7 (9.0-12.0) sec APTT 21.1 L (22.0-30.0) sec CBC 01/14/21 Range/Units 14:56 WBC 7.1 (3.8-10.6) k/uL RBC 3.82 (3.80-5.40) m/uL Hgb 13.0 (11.4-16.0) gm/dL Hct 37.7 (34.0-46.0) % Plt Count 208 (150-450) k/uL Comprehensive Metabolic Panel 01/14/21 Range/Units 14:56 Sodium 138 (137-145) mmol/L Potassium 4.8 (3.5-5.1) mmol/L Chloride 103 (98-107) mmol/L Carbon Dioxide 25 (22-30) mmol/L BUN 32 H (7-17) mg/dL Creatinine 0.95 (0.52-1.04) mg/dL Glucose 89 (74-99) mg/dL Calcium 9.1 (8.4-10.2) mg/dL AST 34 (14-36) U/L ALT 25 (4-34) U/L Alkaline Phosphatase 59 (38-126) U/L Total Protein 6.6 (6.3-8.2) g/dL Albumin 3.8 (3.5-5.0) g/dL Current Medications Generic Name Dose Route Start Last Admin Trade Name Freq PRN Reason Stop Dose Admin Hydrocodone Bitart/Acetaminophen 1 - 2 each 01/15/21 09:18 01/15/21 09:50 Hydrocodone/Apap 10-325mg 1 Each Tab PO 2 each Q4H PRN Administration Pain Amlodipine Besylate 10 mg 01/15/21 09:00 01/15/21 08:54 Amlodipine 10 Mg Tab PO 10 mg DAILY BRENDA Administration Aspirin 81 mg 01/15/21 09:00 01/15/21 08:54 Aspirin 81 Mg PO 81 mg DAILY BRENDA Administration Atorvastatin Calcium 40 mg 01/15/21 21:00 Atorvastatin 20 Mg Tab PO HS BRENDA Bisoprolol Fumarate 10 mg 01/15/21 09:00 01/15/21 08:54 Bisoprolol 5 Mg Tab PO 10 mg DAILY BRENDA Administration Duloxetine HCl 60 mg 01/15/21 09:00 01/15/21 08:54 Duloxetine Hcl 60 Mg Capsule.Dr PO 60 mg BID BRENDA Administration Fluoxetine HCl 20 mg 01/15/21 09:00 01/15/21 08:54 Fluoxetine Hcl 20 Mg Cap PO 20 mg BID BRENDA Administration Folic Acid 1 mg 01/15/21 09:00 01/15/21 08:54 Folic Acid 1 Mg Tab PO 1 mg DAILY RBENDA Administration Gabapentin 600 mg 01/15/21 09:00 01/15/21 08:54 Gabapentin 300 Mg Cap PO 600 mg TID BRENDA Administration Ibuprofen 800 mg 01/14/21 22:43 01/15/21 09:10 Ibuprofen 800 Mg Tab PO 800 mg Q8H PRN Administration Pain Insulin Aspart 0 unit 01/15/21 07:30 01/15/21 08:42 Insulin Aspart (Novolog) 100 Unit/Ml Vial SQ Not Given ACHS [facility] Protocol Isosorbide Mononitrate 30 mg 01/15/21 09:00 01/15/21 08:54 Isosorbide Mononitrate Er 30 Mg Tab.Er.24h PO 30 mg DAILY BRENDA Administration Lisinopril 10 mg 01/15/21 09:00 01/15/21 08:54 Lisinopril 10 Mg Tab PO 10 mg BID BRENDA Administration Montelukast Sodium 10 mg 01/15/21 21:00 Montelukast 10 Mg Tab PO HS BRENDA Oxybutynin Chloride 10 mg 01/15/21 09:00 01/15/21 08:54 Oxybutynin 10 Mg Tab.Er.24 PO 10 mg BID BRENDA Administration Pantoprazole Sodium 30 mg 01/15/21 09:00 01/15/21 08:54 Pantoprazole 40 Mg Tablet PO 30 mg BID BRENDA Administration Ranolazine 1,000 mg 01/15/21 09:00 01/15/21 08:55 Ranolazine 500 Mg Tab.Er.12h PO 1,000 mg BID BRENDA Administration Intake and Output 01/14/21 01/15/21 01/15/21 22:59 06:59 14:59 Other: Voiding Method Bedpan # Voids 3 Weight 90.718 kg 01/14/21 14:56 01/14/21 14:56
[2021-01-15 11:23] LABS: Glucose,Whole Blood 99 mg/dL (75-99)
--- NOTE | 2021-01-15 12:25 | ECHOF ---
Referral Reason:Cardiomegaly on CXR MEASUREMENTS -------- HEIGHT: 167.6 cm WEIGHT: 90.7 kg BP: 183/89 RVIDd: 2.8 cm (< 3.3) IVSd: 1.9 cm (0.6 - 1.1) LVIDd: 3.5 cm (3.9 - 5.3) LVPWd: 1.8 cm (0.6 - 1.1) IVSs: 2.2 cm LVIDs: 2.4 cm LVPWs: 2.0 cm LAESV Index (A-L): 27.12 ml/m Ao Diam: 3.1 cm (2.0 - 3.7) AV Cusp: 1.6 cm (1.5 - 2.6) MV EXCURSION: 11.532 mm (> 18.000) MV EF SLOPE: 40 mm/s (70 - 150) EPSS: 1.2 cm MV E [place]: 0.60 m/s MV DecT: 241 ms MV A [place]: 1.04 m/s MV E/A Ratio: 0.58 AR PHT: 587 ms RAP: 5.00 mmHg RVSP: 36.10 mmHg FINDINGS -------- Sinus rhythm. This was a technically adequate study. The left ventricular size is normal. There is severe concentric left ventricular hypertrophy. Ove rall left ventricular systolic function is normal with, an EF between 55 - 60 %. The diastolic fill ing pattern is normal for the age of the patient 19.80. The right ventricle is normal in size. Normal LA size by volume 22+/-6 ml/m2. The right atrial size is normal. Interatrial and interventricular septum intact. There is mild aortic valve sclerosis. There is mild aortic regurgitation. Mild mitral annular calcification present. Mild mitral regurgitation is present. Mild tricuspid regurgitation present. There is mild pulmonary hypertension. The right ventricular systolic pressure, as measured by Doppler, is 36.10mmHg. Trace/mild (physiologic) pulmonic regurgitation. The aortic root size is normal. IVC Not well visulized. There is no pericardial effusion. CONCLUSIONS -------- 1. There is severe concentric left ventricular hypertrophy. 2. Overall left ventricular systolic function is normal with, an EF between 55 - 60 %. 3. There is mild aortic valve sclerosis. 4. There is mild aortic regurgitation. 5. Mild mitral regurgitation is present. 6. Mild tricuspid regurgitation present. 7. There is mild pulmonary hypertension. 8. Trace/mild (physiologic) pulmonic regurgitation. HOME AND FAMILY LIVING PROFESSOR: Luisa Funez RDCS
--- NOTE | 2021-01-15 12:34 | P.CNNES ---
History of Present Illness Consult date: 01/15/21 Requesting physician: Segun Cedeño Reason for Consult: Altered mental status History of Present Illness: Patient is a 70-year-old female came to the hospital by ambulance yesterday at 2:26 PM after patient was found unresponsive. Patient was at a facility to get an MRI, where she went to the bathroom and heard a bang in the bathroom and found the patient on the ground unresponsive. Per EMS flow sheet, when they arrived patient was still altered. She wouldn't open her eyes to verbal stimuli, and was alert to herself. There was no obvious facial droop, and she was moving her extremities freely. No obvious signs of trauma were seen. Pupils were reactive her blood glucose was 97. EKG shows sinus rhythm. During transport to the hospital patient would appear to fall asleep in her arms and legs would tremor. On calling her name loudly, she would open her eyes and responds verbally with "what". Her vitals at the scene was blood pressure 136/82, pulse rate 78 and respirations 16. Saturation 97%. Vital signs on arrival blood pressure 101/67, pulse of 74, temperature 98.0. Blood test shows normal CBC, PT/PTT, CMP, troponin, UA, urine drug screen positive for opiates and benzodiazepine. [place] virus negative. CT head showed no acute intracranial hemorrhage, mass effect or midline shift. CT of the cervical spine showed no acute fracture or dislocation. EKG shows normal sinus rhythm. Patient was given Narcan, with some improvement in her mentation. Patient slowly has improved overnight. Now she feels back to baseline. Patient states that she takes Novi 10/325 3 times a day on a regular basis for back pain. She also takes Robaxin 500 mg 4 times a day. Patient states that the on the morning of MRI, she took 1 tablet of Novi at 6 AM, 1 tablet at 10:30 AM. She took 2 tablets of lorazepam 1 mg at 12:30 PM in order for preparation for MRI due to her claustrophobia. She then took another 2 tablets of lorazepam 1 mg (now totalling lorazepam 4 mg) at around 1:20 PM. She also took her Robaxin. Most likely after taking all these medications she passed out. Patient has diabetes for 3-4 years. She has fibromyalgia, lupus, arthritis. Chronic back pain. Review of Systems Chronic back pain. Otherwise completely unremarkable. She does have fibr omyalgia, lupus, arthritis. She has diabetes for 3-4 years. Denies any chest pain. She does have some chronic shortness of breath and cough when she is exposed to cold air. Denies any wheezing, abdominal pain, nausea vomiting diarrhea. Past Medical History Past Medical History: Asthma, Coronary Artery Disease (CAD), Chest Pain / Angina, CVA/TIA, Diabetes Mellitus, Deep Vein Thrombosis (DVT), Fibromyalgia, Hyperlipidemia, Hypertension, Osteoarthritis (OA), Rheumatoid Arthritis (RA) Additional Past Medical History / Comment(s): LUPUS. STATES WAS TOLD HAD "SILENT CVA". BLE DVT, CHRONIC BACK PAIN. TIA. History of Any Multi-Drug Resistant Organisms: None Reported Past Surgical History: Back Surgery, Heart Catheterization With Stent, Hysterectomy, Joint Replacement, Orthopedic Surgery Additional Past Surgical History / Comment(s): APRIL 07 UMBHERNIA REPAIR (DR. ORELLANA) @ [facility]. RIGHT FOOT, TOTAL RIGHT ANKLE, BILAT JEANIE, COLONOSCOPY/EGD Past Anesthesia/Blood Transfusion Reactions: No Reported Reaction Additional Past Anesthesia/Blood Transfusion Reaction / Comment(s): Disoriented with anesthesia. Date of Last Stent Placement:: 04/25/17 Past Psychological History: Depression Smoking Status: Never smoker Past Alcohol Use History: Rare Past Drug Use History: None Reported - Past Family History Mother Family Medical History: Cancer, Coronary Artery Disease (CAD), Rheumatoid Arthritis (RA) Additional Family Medical History / Comment(s): LUNG CANCER Father Family Medical History: Cancer Additional Family Medical History / Comment(s): lung Medications and Allergies Home Medications Medication Instructions Recorded Confirmed Type Bisoprolol Fumarate [Zebeta] 10 mg PO DAILY 05/12/14 01/14/21 History Fenofibrate,Micronized 200 mg PO DAILY 05/12/14 01/14/21 History [Fenofibrate] Gabapentin [Neurontin] 600 mg PO TID 05/12/14 01/14/21 History Isosorbide Mononitrate ER [Imdur] 30 mg PO DAILY 05/12/14 01/14/21 History Lansoprazole [Prevacid] 30 mg PO BID 05/12/14 01/14/21 History Montelukast [Singulair] 10 mg PO HS 05/12/14 01/14/21 History Oxybutynin Chloride [Ditropan XL] 10 mg PO BID 05/12/14 01/14/21 History Albuterol Nebulized [Ventolin 2.5 mg INHALATION RT-QID PRN 02/23/16 01/14/21 History Nebulized] FLUoxetine HCL [PROzac] 20 mg PO BID 02/23/16 01/14/21 History Folic Acid 1 mg PO DAILY 02/23/16 01/14/21 History HYDROcodone/APAP 10-325MG [Novi 1 - 2 tab PO Q4H PRN 02/23/16 01/14/21 History 10-325] amLODIPine BESYLATE [Amlodipine 10 mg PO DAILY 02/23/16 01/14/21 History Besylate] glipiZIDE [Glucotrol XL] 5 mg PO DAILY 02/23/16 01/14/21 History traZODone HCL [Desyrel] 100 - 200 mg PO HS PRN 02/23/16 01/14/21 History DULoxetine HCL [Cymbalta] 60 mg PO BID 08/09/16 01/14/21 History Ergocalciferol [Vitamin D2 50,000 unit PO Q7D 06/23/17 01/14/21 History (DRISDOL)] Methotrexate 25mg/Iml 0.8 ml SQ Q7D 12/30/18 01/14/21 History Aspirin [[place] Aspirin EC] 81 mg PO DAILY 12/28/19 01/14/21 History Ibuprofen [Motrin] 800 mg PO Q8H PRN 12/28/19 01/14/21 History Albuterol Sulfate [Proair Hfa] 2 puff INHALATION RT-Q6H PRN 01/14/21 01/14/21 History Ascorbic Acid [Vitamin C] 1,000 mg PO DAILY 01/14/21 01/14/21 History Fluticasone Nasal [place] [Flonase 2 spray EA NOSTRIL DAILY PRN 01/14/21 01/14/21 History Nasal [place]] INSULIN ASPART (NovoLOG) [NovoLOG 1 - 6 unit SQ ACHS 01/14/21 01/14/21 History (formulary)] Linaclotide [Linzess] 145 mcg PO DAILY 01/14/21 01/14/21 History Lisinopril [Zestril] 10 mg PO BID 01/14/21 01/14/21 History Menthol [Biofreeze] 1 applic TOPICAL DAILY PRN 01/14/21 01/14/21 History [place]-3 Fatty Acids [[place]-3] 1,000 mg PO DAILY 01/14/21 01/14/21 History Ranolazine [Ranolazine ER] 1,000 mg PO BID 01/14/21 01/14/21 History Rosuvastatin [Crestor] 20 mg PO HS 01/14/21 01/14/21 History Velvachol Cream 1 applic TOPICAL DAILY PRN 01/14/21 01/14/21 History methocarbamoL [Robaxin] 500 mg PO QID PRN 01/14/21 01/14/21 History valACYclovir HCL [Valtrex] 1,000 mg PO BID PRN 01/14/21 01/14/21 History Allergies Allergy/AdvReac Type Severity Reaction Status Date / Time sulfamethoxazole Allergy Rash/Hives Verified 01/14/21 15:49 [From Bactrim] trimethoprim [From Bactrim] Allergy Rash/Hives Verified 01/14/21 15:49 Physical Examination - Vital Signs Vital Signs: Vital Signs Temp Pulse Pulse Resp BP BP Pulse Ox 01/15/21 07:58 97.7 F 50 L 18 183/89 97 01/15/21 02:28 98.1 F 61 157/85 92 L 01/14/21 21:27 98.3 F 63 150/77 93 L 01/14/21 21:23 16 01/14/21 20:43 80 16 144/84 95 01/14/21 18:10 64 16 135/78 99 01/14/21 17:39 67 16 130/82 98 01/14/21 16:30 67 16 122/79 96 01/14/21 16:29 16 01/14/21 14:57 16 01/14/21 14:44 67 16 100/58 96 01/14/21 14:26 98.0 F 74 16 101/67 84 L Intake and Output 01/14/21 01/15/21 01/15/21 22:59 06:59 14:59 Other: Voiding Method Bedpan # Voids 3 Weight 90.718 kg On examination patient is an elderly female, appears younger than her stated age. She is alert and awake oriented to time place and person. Speech and language functions are normal. Attention, concentration and fund of knowledge is adequate. On cranial exam showed pupils are round and reacting to light, visual marino are full on confrontation, extraocular muscles are intact with no nystagmus. Face is symmetric, tongue protrudes the midline. A little elevation and sensation normal. Hearing and shoulder shrug normal. On muscle strength testing there is no pronator drift and the strength is completely normal in arms and legs distally and proximally reflexes are diminished and plantars are downgoing bilaterally. Sensory touch is equal. No ataxia for [id number] testing, tone and bulk of muscles normal. No carotid bruit or murmur, peripheral pulses are present, no edema. Abdomen soft nontender, chest is clear. Results - Laboratory Findings CBC and BMP: 01/14/21 14:56 01/14/21 14:56 Abnormal Lab Findings: Abnormal Labs 01/14/21 01/14/21 01/14/21 14:56 14:56 16:15 APTT 21.1 L BUN 32 H Urine Opiates Screen Detected H U Benzodiazepines Scrn Detected H Assessment and Plan Assessment: * Syncopal spell, most likely related to polypharmacy. Patient was getting MRI, and due to her claustrophobia, she took total of 4 mg of lorazepam, besides he r Novi 10/325 and a muscle relaxer. Patient's mentation is now back to normal, and current examination nonfocal. All workup negative. * Fibromyalgia * Chronic back pain * Arthritis * Diabetes Plan: * Patient's fainting was likely related to polypharmacy. Her mentation is now back to normal. No other neurological workup indicated. * Patient is clear for discharge from neurology point.
--- NOTE | 2021-01-15 16:20 | P.DS ---
Providers Date of admission: 01/14/21 18:23 Expected date of discharge: 01/15/21 Attending physician: Lynsey Foley MD Consults: 01/14/21 18:22 Consult Physician Urgent Consulting Provider: Juvencio Sevilla Consult Reason/Comments: Altered mental status Do you want consulting provider notified?: Yes 01/14/21 22:48 Consult Physician Routine Consulting Provider: Bharath Castillo Consult Reason/Comments: syncope Do you want consulting provider notified?: Yes, Notify in am Primary care physician: [facility] Course: Acute Conditions: Syncope Acute metabolic encephalopathy Urine drug screen positive for opiates and benzo Chronic Conditions: DM hypertension hyperlipidemia OA H/O CAD chronic abd pain 70 year old woman presented after being found unresponsive while she was in the bathroom waiting for an MRI of her C-spine due to chronic neck pain issues as ordered by her outpatient orthopedic surgeon. Pt says that MRIs make her nervous, so prior to the episode, she had taken 1 norco, 1 methocarbamol, and 1 "medication that started with an L-O-R". She was noted to be + for benzos and opiates in her UTox. She rec'd narcan with minimal improvement. However, by the following day, her mentation improved back to normal. She was monitored on telemetry with no acute events. She was also evaluated with echo, which was negative for sHF or dHF. Cardiology and Neurology saw her and cleared her for discharge. She has appropriate follow up set up. No changes to her home medications, but she was heavily advised not to mix these medications together prior to the next MRI. Notably, she does not have a prescription for benzos and should not take this medication unless specifically advised to do so by a physician in the future. Assessment: Gen: awake, alert HEENT: normocephalic, atraumatic, good hearing acuity, moist mucous membranes Resp: good air exchange, breathing comfortably with no accessory muscle use, C TAB, no wheezes CVS: good distal perfusion x 4, RRR, no murmurs GI: soft, NTTP, ND : no SPT, no CVAT, goodwin catheter not present MSK: no pitting edema, no clubbing Neuro: non-focal, moving all extremities Psych: cooperative, euthymic mood Patient Condition at Discharge: Good Plan - Discharge Summary Discharge Rx Participant: No New Discharge Prescriptions: Continue Lansoprazole [Prevacid] 30 mg PO BID Gabapentin [Neurontin] 600 mg PO TID Isosorbide Mononitrate ER [Imdur] 30 mg PO DAILY Oxybutynin Chloride [Ditropan XL] 10 mg PO BID Montelukast [Singulair] 10 mg PO HS Fenofibrate,Micronized [Fenofibrate] 200 mg PO DAILY Bisoprolol Fumarate [Zebeta] 10 mg PO DAILY traZODone HCL [Desyrel] 100 - 200 mg PO HS PRN PRN Reason: Insomnia glipiZIDE [Glucotrol XL] 5 mg PO DAILY HYDROcodone/APAP 10-325MG [[place] 10-325] 1 - 2 tab PO Q4H PRN PRN Reason: Pain Folic Acid 1 mg PO DAILY FLUoxetine HCL [PROzac] 20 mg PO BID amLODIPine BESYLATE [Amlodipine Besylate] 10 mg PO DAILY Albuterol Nebulized [Ventolin Nebulized] 2.5 mg INHALATION RT-QID PRN PRN Reason: Shortness Of Breath DULoxetine HCL [Cymbalta] 60 mg PO BID Ergocalciferol [Vitamin D2 (DRISDOL)] 50,000 unit PO Q7D Methotrexate 25mg/Iml 0.8 ml SQ Q7D Aspirin [[place] Aspirin EC] 81 mg PO DAILY Ibuprofen [Motrin] 800 mg PO Q8H PRN PRN Reason: Pain Velvachol Cream 1 applic TOPICAL DAILY PRN PRN Reason: Dry Skin Albuterol Sulfate [Proair Hfa] 2 puff INHALATION RT-Q6H PRN PRN Reason: Shortness Of Breath Ascorbic Acid [Vitamin C] 1,000 mg PO DAILY Fluticasone Nasal [place] [Flonase Nasal [place]] 2 spray EA NOSTRIL DAILY PRN PRN Reason: Allergy Symptoms INSULIN ASPART (NovoLOG) [NovoLOG (formulary)] 1 - 6 unit SQ ACHS Lisinopril [Zestril] 10 mg PO BID Menthol [Biofreeze] 1 applic TOPICAL DAILY PRN PRN Reason: Pain methocarbamoL [Robaxin] 500 mg PO QID PRN PRN Reason: Muscle Pain [place]-3 Fatty Acids [[place]-3] 1,000 mg PO DAILY Linaclotide [Linzess] 145 mcg PO DAILY Ranolazine [Ranolazine ER] 1,000 mg PO BID Rosuvastatin [Crestor] 20 mg PO HS valACYclovir HCL [Valtrex] 1,000 mg PO BID PRN PRN Reason: COLD SORE OUTBREAK Discharge Medication List Bisoprolol Fumarate [Zebeta] 10 mg PO DAILY 05/12/14 [History] Fenofibrate,Micronized [Fenofibrate] 200 mg PO DAILY 05/12/14 [History] Gabapentin [Neurontin] 600 mg PO TID 05/12/14 [History] Isosorbide Mononitrate ER [Imdur] 30 mg PO DAILY 05/12/14 [History] Lansoprazole [Prevacid] 30 mg PO BID 05/12/14 [History] Montelukast [Singulair] 10 mg PO HS 05/12/14 [History] Oxybutynin Chloride [Ditropan XL] 10 mg PO BID 05/12/14 [History] Albuterol Nebulized [Ventolin Nebulized] 2.5 mg INHALATION RT-QID PRN 02/23/16 [History] FLUoxetine HCL [PROzac] 20 mg PO BID 02/23/16 [History] Folic Acid 1 mg PO DAILY 02/23/16 [History] HYDROcodone/APAP 10-325MG [[place] 10-325] 1 - 2 tab PO Q4H PRN 02/23/16 [History] amLODIPine BESYLATE [Amlodipine Besylate] 10 mg PO DAILY 02/23/16 [History] glipiZIDE [Glucotrol XL] 5 mg PO DAILY 02/23/16 [History] traZODone HCL [Desyrel] 100 - 200 mg PO HS PRN 02/23/16 [History] DULoxetine HCL [Cymbalta] 60 mg PO BID 08/09/16 [History] Ergocalciferol [Vitamin D2 (DRISDOL)] 50,000 unit PO Q7D 06/23/17 [History] Methotrexate 25mg/Iml 0.8 ml SQ Q7D 12/30/18 [History] Aspirin [[place] Aspirin EC] 81 mg PO DAILY 12/28/19 [History] Ibuprofen [Motrin] 800 mg PO Q8H PRN 12/28/19 [History] Albuterol Sulfate [Proair Hfa] 2 puff INHALATION RT-Q6H PRN 01/14/21 [History] Ascorbic Acid [Vitamin C] 1,000 mg PO DAILY 01/14/21 [History] Fluticasone Nasal [place] [Flonase Nasal [place]] 2 spray EA NOSTRIL DAILY PRN 01/14/21 [History] INSULIN ASPART (NovoLOG) [NovoLOG (formulary)] 1 - 6 unit SQ ACHS 01/14/21 [History] Linaclotide [Linzess] 145 mcg PO DAILY 01/14/21 [History] Lisinopril [Zestril] 10 mg PO BID 01/14/21 [History] Menthol [Biofreeze] 1 applic TOPICAL DAILY PRN 01/14/21 [History] [place]-3 Fatty Acids [[place]-3] 1,000 mg PO DAILY 01/14/21 [History] Ranolazine [Ranolazine ER] 1,000 mg PO BID 01/14/21 [History] Rosuvastatin [Crestor] 20 mg PO HS 01/14/21 [History] Velvachol Cream 1 applic TOPICAL DAILY PRN 01/14/21 [History] methocarbamoL [Robaxin] 500 mg PO QID PRN 01/14/21 [History] valACYclovir HCL [Valtrex] 1,000 mg PO BID PRN 01/14/21 [History] Follow up Appointment(s)/Referral(s): Bharath Castillo MD [STAFF PHYSICIAN] - 02/04/21 (follow up as scheduled ) Elida Baltazar MD [Primary Care Provider] - 01/19/21 3:00 pm Patient Instructions/Handouts: Syncope (DC) Discharge Disposition: HOME SELF-CARE
[2021-01-15] MEDS ORDERED: MONTELUKAST 10 MG TAB PO SCH (21:00)
[2021-01-15] MEDS ORDERED: ATORVASTATIN 20 MG TAB PO SCH (21:00)
== END 2021-01-15 13:01 | disposition home or self-care (01) ==
LOC: EC 14:24 → 4SSUR 18:23
PROVIDERS: ADMIT Internal Medicine; ATTEND Internal Medicine
DX: R55 Syncope and collapse (principal); G93.41 Metabolic encephalopathy; E11.9 Type 2 diabetes mellitus without complications; I10 Essential (primary) hypertension; E78.5 Hyperlipidemia, unspecified; I25.10 Atherosclerotic heart disease of native coronary artery without angina pectoris; G89.29 Other chronic pain; M19.90 Unspecified osteoarthritis, unspecified site; J45.909 Unspecified asthma, uncomplicated; F32.9 Major depressive disorder, single episode, unspecified; F40.240 Claustrophobia; M79.7 Fibromyalgia; M06.9 Rheumatoid arthritis, unspecified; I27.20 Pulmonary hypertension, unspecified; I25.82 Chronic total occlusion of coronary artery; Z82.49 Family history of ischemic heart disease and other diseases of the circulatory system; Z95.5 Presence of coronary angioplasty implant and graft; Z86.718 Personal history of other venous thrombosis and embolism; Z86.73 Personal history of transient ischemic attack (TIA), and cerebral infarction without residual deficits; Z80.1 Family history of malignant neoplasm of trachea, bronchus and lung; Z79.899 Other long term (current) drug therapy; Z90.710 Acquired absence of both cervix and uterus; Z79.4 Long term (current) use of insulin; Z79.82 Long term (current) use of aspirin; Z20.822 Contact with and (suspected) exposure to COVID-19
CPT/HCPCS: 96376; 96361; 96374; 99285; 36415; 93005; 93306; 83880; 80053; 84484; 85025; 85610; 85730; 81003; 80306; 80143; 87635; 71046; 72125; 70450; G0378 ×2; J2310